=== PATIENT | female | born 1955 | race Caucasian/White ===

== ENCOUNTER → 2017-06-30 11:32 | Outpatient (POV) | payer BC, SELFPAY ==
[2017-06-30 11:39] VITALS: BP 146/84; PULSE 80; RESP 18; O2SAT 98; BMI 34.3
--- NOTE | 2017-06-30 11:50 | HMH.PAINSOAP ---
[facility] Pain Management SOAP Note Subjective:: patient is a pleasant 61-year-old white female who is following up today for medication refills. Patient is being treated for pain secondary to degenerative disc disease of the lumbar spine and lumbar radiculopathy. She rates her pain a 3 out of 10 today. 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 Her medically managing the patient with [place] 10 mg 1 p.o. to 4 times daily. Patient states the medication decreases her pain up to 60%. Denies any side effects including sleepiness. Patient is less of her pain is in the low back but does radiate down into her left leg. Rest does help alleviate these pains. He also uses heat and ice when needed. ROS General: no recent weight change, no fever, no sleep disturbances Respiratory: no cough, no shortness of air, no recurring pulmonary infections Cardiovascular/Peripheral Vascular: No chest pain, No palpitations, no edema, no shortness of breath. Gastrointestinal: no incontinence, constipation at times Genitourinary: no incontinence Musculoskeletal: [Back pain] Psychiatric: normal mood/ affect, Neurological: [denies weakness in extremities], [denies balance issues] Objective:: Physical Exam General: Alert and oriented x3, no acute distress, pleasant and cooperative, [on room air] Lungs: Resps E/U, Symmetrical chest expansion, Musculoskeletal: Flexion and extension of lumbar spine somewhat guarded secondary to pain, deep tendon reflexes normal, strength in upper and lower extremities [5/5], [normal gait noted] Neurological: speech clear, rib builder equal, no gross sensory deficits Assessment:: Degenerative disc disease lumbar spine and lumbar radiculopathy Plan:: We will plan on refilling this patient's medication [place] 10 mg 1 p.o. 4 times daily. Patient also taking gabapentin 100 mg 1 at nighttime. She does not need this refilled at this time we can call that in for her when it is necessary. Dr. Beth reviewed the chart and agrees with the plan of care. Patient UDS has been appropriate in the past patient's Grisel #[id number] reviewed and appropriate. Will follow up with this patient in 3 months. Patient has been prescribed a controlled substance after being counseled on the medication, medication safety, and possible side effects. GRISEL report has been obtained and reviewed prior to prescription and found to be appropriate. Opioid contract was reviewed and signed by the patient, and that they have agreed to all of the terms set forth by our compliance program. This note was dictated using voice recognition software and may contain errors or omissions
--- NOTE | 2017-06-30 12:03 | P.CONS_ITS ---
[facility] Pain Management SOAP Note Subjective:: patient is a pleasant 61-year-old white female who is following up today for medication refills. Patient is being treated for pain secondary to degenerative disc disease of the lumbar spine and lumbar radiculopathy. She rates her pain a 3 out of 10 today. 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 Her medically managing the patient with [place] 10 mg 1 p.o. to 4 times daily. Patient states the medication decreases her pain up to 60%. Denies any side effects including sleepiness. Patient is less of her pain is in the low back but does radiate down into her left leg. Rest does help alleviate these pains. He also uses heat and ice when needed. ROS General: no recent weight change, no fever, no sleep disturbances Respiratory: no cough, no shortness of air, no recurring pulmonary infections Cardiovascular/Peripheral Vascular: No chest pain, No palpitations, no edema, no shortness of breath. Gastrointestinal: no incontinence, constipation at times Genitourinary: no incontinence Musculoskeletal: [Back pain] Psychiatric: normal mood/ affect, Neurological: [denies weakness in extremities], [denies balance issues] Objective:: Physical Exam General: Alert and oriented x3, no acute distress, pleasant and cooperative, [ on room air] Lungs: Resps E/U, Symmetrical chest expansion, Musculoskeletal: Flexion and extension of lumbar spine somewhat guarded secondary to pain, deep tendon reflexes normal, strength in upper and lower extremities [5/5], [normal gait noted] Neurological: speech clear, outsole handler equal, no gross sensory deficits Assessment:: Degenerative disc disease lumbar spine and lumbar radiculopathy Plan:: We will plan on refilling this patient's medication [place] 10 mg 1 p.o. 4 times daily. Patient also taking gabapentin 100 mg 1 at nighttime. She does not need this refilled at this time we can call that in for her when it is necessary. Dr. Beth reviewed the chart and agrees with the plan of care. Patient UDS has been appropriate in the past patient's Grisel #[id number] reviewed and appropriate. Will follow up with this patient in 3 months. Patient has been prescribed a controlled substance after being counseled on the medication, medication safety, and possible side effects. GRISEL report has been obtained and reviewed prior to prescription and found to be appropriate. Opioid contract was reviewed and signed by the patient, and that they have agreed to all of the terms set forth by our compliance program. This note was dictated using voice recognition software and may contain errors or omissions
[2017-06-30 13:24] LABS: Amphetamine/Metha Screen,Urine Negative ng/mL (<1000); Barbiturates Screen,Urine Negative ng/mL (<200); Benzodiazepines Screen,Urine Negative ng/mL (200); Cannabinoid Screen,Urine Negative ng/mL (<50); Cocaine Screen,Urine Negative ng/g (<300); Methadone Screen,Urine Negative ng/mL (<300); Opiate Screen,Urine Positive ng/mL (<300); Phencyclidine Screen,Urine Negative ng/mL (<25)
[2017-07-06 15:08] LABS: Codeine Negative (Cutoff=100); Hydrocodone Positive (.); Hydromorphone Positive (.); Morphine Negative (Cutoff=100)
[2017-07-06 17:14] LABS: Opiates Positive (.)
== END ==
PROVIDERS: Family Provider Family Medicine; PCP Family Medicine; Visit Provider Clinical Nurse Specialist Family Health
DX: M54.16 Radiculopathy, lumbar region (principal)
CPT/HCPCS: 99212; 80305; 80361; 80365; G0480

== ENCOUNTER → 2017-07-14 10:16 | Outpatient (CLI) | payer BC, SELFPAY ==
[2017-07-14 11:21] LABS: Amphetamine/Metha Screen,Urine Negative ng/mL (<1000); Barbiturates Screen,Urine Negative ng/mL (<200); Benzodiazepines Screen,Urine Negative ng/mL (200); Cannabinoid Screen,Urine Negative ng/mL (<50); Cocaine Screen,Urine Negative ng/g (<300); Methadone Screen,Urine Negative ng/mL (<300); Opiate Screen,Urine Positive ng/mL (<300); Phencyclidine Screen,Urine Negative ng/mL (<25)
[2017-07-17 14:20] LABS: Codeine Negative (Cutoff=100); Hydrocodone Positive (.); Hydromorphone Positive (.); Morphine Negative (Cutoff=100)
[2017-07-18 19:13] LABS: Opiates Positive (.)
== END ==
PROVIDERS: Visit Provider Clinical Nurse Specialist Family Health
DX: Z79.899 Other long term (current) drug therapy (principal)
CPT/HCPCS: 80305; 80361; 80365; G0480

== ENCOUNTER → 2017-10-07 11:25 | Outpatient (POV) | payer BC, SELFPAY ==
[2017-10-07 11:40] VITALS: BP 183/98; PULSE 73; RESP 18; O2SAT 98; BMI 35.2
--- NOTE | 2017-10-07 12:46 | HMH.PAINSOAP ---
[facility] Pain Management SOAP Note Subjective:: She is a pleasant 61-year-old white female who presents today for medication refills. Patient is being treated for pain secondary to degenerative disc disease of the lumbar spine and lumbar radiculopathy. 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 Patient's been medically managed with [place] 10 mg 1 p.o. 4 times daily. Patient states the medication decreases her pain 50-60%. Patient rates her pain at 5 out of 10 today. Patient states that most of it is in her back and goes down her left leg. Patient has been taking gabapentin 100 mg 1 p.o. 3 times daily states that this is been doing very well for her. Patient Kaspar #[id number] reviewed and appropriate. Patient's UDS has been appropriate in the past. ROS General: no recent weight change, no fever, no sleep disturbances Respiratory: no cough, no shortness of air, no recurring pulmonary infections Cardiovascular/Peripheral Vascular: No chest pain, No palpitations, no edema, no shortness of breath. Gastrointestinal: no incontinence, normal bowel movements reported Genitourinary: no incontinence Musculoskeletal: Back pain, leg pain Psychiatric: normal mood/ affect Neurological: [denies weakness in extremities], [denies balance issues] Objective:: Physical Exam General: Alert and oriented x3, no acute distress, pleasant and cooperative, [on room air] Lungs: Resps E/U, Symmetrical chest expansion, Eyes: PERRL Musculoskeletal: Flexion and extension of lumbar spine somewhat guarded secondary to pain, deep tendon reflexes normal, strength in upper and lower extremities [5/5], normal gait noted Neurological: speech clear, senior visual designer equal, no gross sensory deficits Assessment:: Degenerative disc disease of lumbar spine with lumbar radiculopathy Plan:: We will refill the patient's medication [place] 10 mg 1 p.o. 4 times daily and gabapentin 100 mg 1 p.o. 3 times daily. We will give HER-2 months worth of prescriptions and she can cherry picker operator her third month in the interim we will follow-up with the patient in [address] Beth has reviewed this chart and agrees with this plan of care. Patient's Grisel and urine drug screen have been reviewed. Patient has been prescribed a controlled substance after being counseled on the medication, medication safety, and possible side effects. GRISEL report has been obtained and reviewed prior to prescription and found to be appropriate. Opioid contract was reviewed and signed by the patient, and that they have agreed to all of the terms set forth by our compliance program. This note was dictated using voice recognition software and may contain errors or omissions
== END ==
PROVIDERS: Family Provider Family Medicine; PCP Family Medicine; Visit Provider Clinical Nurse Specialist Family Health
DX: M54.16 Radiculopathy, lumbar region (principal)
CPT/HCPCS: 99212

== ENCOUNTER → 2017-12-05 11:05 | Outpatient (CLI) | payer BC, SELFPAY ==
[2017-12-05 12:15] LABS: Amphetamine/Metha Screen,Urine Negative ng/mL (<1000); Barbiturates Screen,Urine Negative ng/mL (<200); Benzodiazepines Screen,Urine Negative ng/mL (<200); Cannabinoid Screen,Urine Negative ng/mL (<50); Cocaine Screen,Urine Negative ng/mL (<300); Methadone Screen,Urine Negative ng/mL (<300); Opiate Screen,Urine Positive ng/mL (<300); Phencyclidine Screen,Urine Negative ng/mL (<25)
[2017-12-12 15:24] LABS: Codeine Negative (Cutoff=100); Hydrocodone Positive (.); Hydromorphone Positive (.); Morphine Negative (Cutoff=100)
[2017-12-12 18:14] LABS: Opiates Positive (.)
== END ==
PROVIDERS: Visit Provider Anesthesiology
DX: Z79.899 Other long term (current) drug therapy (principal)
CPT/HCPCS: 80305; 80361; 80365; G0480

== ENCOUNTER → 2018-01-05 10:07 | Outpatient (POV) | payer BC, SELFPAY ==
[2018-01-05 10:34] VITALS: BP 182/96; PULSE 64; RESP 18; O2SAT 97; BMI 36.0
--- NOTE | 2018-01-05 11:15 | HMH.PAINSOAP ---
[facility] Pain Management SOAP Note Subjective:: Patient pleasant 62-year-old male who presents today for medication refills. Patient's currently being treated for pain secondary to degenerative disc disease lumbar spine with lumbar radiculopathy. 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 Patient's being medically managed with [place] 10 mg 1 p.o. 4 times daily. Patient states that this helps her pain up to 60%. Patient also on gabapentin 100 mg 1 p.o. 3 times daily. Patient denies side effects to the medication. Patient Kaspar #[id number] reviewed and appropriate. Patient's urine drug screen has been appropriate in the past. ROS General: no recent weight change, no fever, no sleep disturbances Respiratory: no cough, no shortness of air, no recurring pulmonary infections Cardiovascular/Peripheral Vascular: No chest pain, No palpitations, no edema, no shortness of breath. Gastrointestinal: no incontinence, normal bowel movements reported Genitourinary: no incontinence Musculoskeletal: Back pain, leg pain Psychiatric: normal mood/ affect Neurological: [denies weakness in extremities], [denies balance issues] Objective:: Physical Exam General: Alert and oriented x3, no acute distress, pleasant and cooperative, [on room air] Lungs: Resps E/U, Symmetrical chest expansion, Eyes: PERRL Musculoskeletal: Flexion and extension of lumbar spine somewhat guarded secondary to pain, deep tendon reflexes normal, strength in upper and lower extremities [5/5], slightly antalgic gait noted Neurological: speech clear, auto haulaway driver equal, no gross sensory deficits Assessment:: Degenerative disc disease of lumbar spine with lumbar radiculopathy Plan:: We will refill the patient's medication [place] 10 g 1 p.o. 4 times daily and gabapentin 100 mg 1 p.o. 3 times daily. We will give her 2 months worth of prescriptions and she can rock picker her third month in the interim. We will follow-up the patient in [address] Beth is reviewed the chart and agrees with this plan of care. Patient's Grisel and urine drug screen have been reviewed Patient has been prescribed a controlled substance after being counseled on the medication, medication safety, and possible side effects. GRISEL report has been obtained and reviewed prior to prescription and found to be appropriate. Opioid contract was reviewed and signed by the patient, and that they have agreed to all of the terms set forth by our compliance program. This note was dictated using voice recognition software and may contain errors or omissions
--- NOTE | 2018-01-05 11:18 | P.CONS_ITS ---
[facility] Pain Management SOAP Note Subjective:: Patient pleasant 62-year-old male who presents today for medication refills. Patient's currently being treated for pain secondary to degenerative disc disease lumbar spine with lumbar radiculopathy. 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 Patient's being medically managed with [place] 10 mg 1 p.o. 4 times daily. Patient states that this helps her pain up to 60%. Patient also on gabapentin 100 mg 1 p.o. 3 times daily. Patient denies side effects to the medication. Patient Kaspar #[id number] reviewed and appropriate. Patient's urine drug screen has been appropriate in the past. ROS General: no recent weight change, no fever, no sleep disturbances Respiratory: no cough, no shortness of air, no recurring pulmonary infections Cardiovascular/Peripheral Vascular: No chest pain, No palpitations, no edema, no shortness of breath. Gastrointestinal: no incontinence, normal bowel movements reported Genitourinary: no incontinence Musculoskeletal: Back pain, leg pain Psychiatric: normal mood/ affect Neurological: [denies weakness in extremities], [denies balance issues] Objective:: Physical Exam General: Alert and oriented x3, no acute distress, pleasant and cooperative, [on room air] Lungs: Resps E/U, Symmetrical chest expansion, Eyes: PERRL Musculoskeletal: Flexion and extension of lumbar spine somewhat guarded secondary to pain, deep tendon reflexes normal, strength in upper and lower extremities [5/5], slightly antalgic gait noted Neurological: speech clear, energy scheduler equal, no gross sensory deficits Assessment:: Degenerative disc disease of lumbar spine with lumbar radiculopathy Plan:: We will refill the patient's medication [place] 10 g 1 p.o. 4 times daily and gabapentin 100 mg 1 p.o. 3 times daily. We will give her 2 months worth of prescriptions and she can picker her third month in the interim. We will follow-up the patient in [address] Beth is reviewed the chart and agrees with this plan of care. Patient's Grisel and urine drug screen have been reviewed Patient has been prescribed a controlled substance after being counseled on the medication, medication safety, and possible side effects. GRISEL report has been obtained and reviewed prior to prescription and found to be appropriate. Opioid contract was reviewed and signed by the patient, and that they have agreed to all of the terms set forth by our compliance program. This note was dictated using voice recognition software and may contain errors or omissions
== END ==
PROVIDERS: Family Provider Family Medicine; PCP Family Medicine; Visit Provider Clinical Nurse Specialist Family Health
DX: M51.16 Intervertebral disc disorders with radiculopathy, lumbar region (principal)
CPT/HCPCS: 99213

== ENCOUNTER → 2018-04-06 08:47 | Outpatient (POV) | payer BC, SELFPAY ==
[2018-04-06 08:58] VITALS: BP 156/74; PULSE 66; RESP 18; O2SAT 98; BMI 39.0
--- NOTE | 2018-04-06 09:02 | HMH.PAINSOAP ---
[facility] Pain Management SOAP Note Subjective:: Patient is a pleasant 8-year-old white male who presents today for medication refill the patient is currently being treated for pain secondary to degenerative disc disease lumbar spine with lumbar radiculopathy. 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 Patient is being medically managed with [place] 10 mg 1 p.o. 4 times daily. Patient did helps up to 70%. Patient is also on gabapentin 100 mg 1 p.o. 3 times daily patient denies any side effects of the medication. Patient's GRISEL #[id number] reviewed and appropriate. Patient's urine drug screen has been appropriate. ROS General: no recent weight change, no fever, no sleep disturbances Respiratory: no cough, no shortness of air, no recurring pulmonary infections Cardiovascular/Peripheral Vascular: No chest pain, No palpitations, no edema, no shortness of breath. Gastrointestinal: no incontinence, normal bowel movements reported Genitourinary: no incontinence Musculoskeletal: Back pain, leg pain Psychiatric: normal mood/ affect Neurological: [denies weakness in extremities], [denies balance issues] Objective:: Physical Exam General: Alert and oriented x3, no acute distress, pleasant and cooperative, [on room air] Lungs: Resps E/U, Symmetrical chest expansion, Eyes: PERRL Musculoskeletal: Flexion and extension of lumbar spine somewhat guarded secondary to pain, deep tendon reflexes normal, strength in upper and lower extremities [5/5], slightly antalgic gait noted Neurological: speech clear, maintenance service technician equal, no gross sensory deficits Assessment:: Degenerative disc disease lumbar spine with lumbar radiculopathy. Plan:: We will refill her [place] 10 mg 1 p.o. 4 times daily and gabapentin 100 mg 1 p.o. 3 times daily. We will get her to 2 months worth of prescriptions and she can pickling operator the third month in the interim. Patient's been instructed to call the office if she has any issues prior to her next appointment. Dr. Beth has reviewed this chart and agrees with this plan of care. Patient has been prescribed a controlled substance after being counseled on the medication, medication safety, and possible side effects. GRISEL report has been obtained and reviewed prior to prescription and found to be appropriate. Opioid contract was reviewed and signed by the patient, and that they have agreed to all of the terms set forth by our compliance program. This note was dictated using voice recognition software and may contain errors or omissions
--- NOTE | 2018-04-06 09:05 | P.CONS_ITS ---
[facility] Pain Management SOAP Note Subjective:: Patient is a pleasant 8-year-old white male who presents today for medication refill the patient is currently being treated for pain secondary to degenerative disc disease lumbar spine with lumbar radiculopathy. 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 Patient is being medically managed with [place] 10 mg 1 p.o. 4 times daily. Patient did helps up to 70%. Patient is also on gabapentin 100 mg 1 p.o. 3 times daily patient denies any side effects of the medication. Patient's GRISEL #[id number] reviewed and appropriate. Patient's urine drug screen has been appropriate. ROS General: no recent weight change, no fever, no sleep disturbances Respiratory: no cough, no shortness of air, no recurring pulmonary infections Cardiovascular/Peripheral Vascular: No chest pain, No palpitations, no edema, no shortness of breath. Gastrointestinal: no incontinence, normal bowel movements reported Genitourinary: no incontinence Musculoskeletal: Back pain, leg pain Psychiatric: normal mood/ affect Neurological: [denies weakness in extremities], [denies balance issues] Objective:: Physical Exam General: Alert and oriented x3, no acute distress, pleasant and cooperative, [on room air] Lungs: Resps E/U, Symmetrical chest expansion, Eyes: PERRL Musculoskeletal: Flexion and extension of lumbar spine somewhat guarded secondary to pain, deep tendon reflexes normal, strength in upper and lower extremities [5/5], slightly antalgic gait noted Neurological: speech clear, piece dye worker equal, no gross sensory deficits Assessment:: Degenerative disc disease lumbar spine with lumbar radiculopathy. Plan:: We will refill her [place] 10 mg 1 p.o. 4 times daily and gabapentin 100 mg 1 p.o. 3 times daily. We will get her to 2 months worth of prescriptions and she can picker and packer the third month in the interim. Patient's been instructed to call the office if she has any issues prior to her next appointment. Dr. Beth has reviewed this chart and agrees with this plan of care. Patient has been prescribed a controlled substance after being counseled on the medication, medication safety, and possible side effects. GRISEL report has been obtained and reviewed prior to prescription and found to be appropriate. Opioid contract was reviewed and signed by the patient, and that they have agreed to all of the terms set forth by our compliance program. This note was dictated using voice recognition software and may contain errors or omissions
[2018-04-06 09:34] LABS: Amphetamine/Metha Screen,Urine Negative ng/mL (<1000); Barbiturates Screen,Urine Negative ng/mL (<200); Benzodiazepines Screen,Urine Negative ng/mL (<200); Cannabinoid Screen,Urine Negative ng/mL (<50); Cocaine Screen,Urine Negative ng/mL (<300); Methadone Screen,Urine Negative ng/mL (<300); Opiate Screen,Urine Positive ng/mL (<300); Phencyclidine Screen,Urine Negative ng/mL (<25)
[2018-04-09 18:13] LABS: Codeine Negative (Cutoff=100); Hydrocodone Positive (.); Hydromorphone Positive (.); Morphine Negative (Cutoff=100)
[2018-04-10 09:10] LABS: Opiates Positive (.)
== END ==
PROVIDERS: Visit Provider Clinical Nurse Specialist Family Health
DX: M51.16 Intervertebral disc disorders with radiculopathy, lumbar region (principal)
CPT/HCPCS: 80305; 80361; 80365; 99213; G0480

== ENCOUNTER → 2018-07-06 08:45 | Outpatient (POV) | payer BC, SELFPAY ==
[2018-07-06 08:57] VITALS: BP 177/88; PULSE 61; RESP 18; O2SAT 98; BMI 35.2
--- NOTE | 2018-07-06 09:03 | HMH.PAINSOAP ---
[facility] Pain Management SOAP Note Subjective:: Patient is a pleasant 62-year-old white female who presents today for medication refills. She is currently being treated for pain secondary to degenerative disc disease lumbar spine with lumbar radiculopathy. 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 She is medically managed with [place] 10 mg 1 p.o. 4 times daily. She states it helps up to 70%. She rates her pain a 4 out of 10 today however she states it is typically better. Patient is also on gabapentin 100 mg 1 p.o. 3 times daily. She denies side effects. Grisel reviewed and appropriate and patient's urine drug screen has been appropriate in the past. ROS General: no recent weight change, no fever, no sleep disturbances Respiratory: no cough, no shortness of air, no recurring pulmonary infections Cardiovascular/Peripheral Vascular: No chest pain, No palpitations, no edema, no shortness of breath. Gastrointestinal: no incontinence, normal bowel movements reported Genitourinary: no incontinence Musculoskeletal: Back pain, leg pain Psychiatric: normal mood/ affect Neurological: [denies weakness in extremities], [denies balance issues] Objective:: Physical Exam General: Alert and oriented x3, no acute distress, pleasant and cooperative, [on room air] Lungs: Resps E/U, Symmetrical chest expansion, Eyes: PERRL Musculoskeletal: Flexion and extension of lumbar spine somewhat guarded secondary to pain, deep tendon reflexes normal, strength in upper and lower extremities [5/5], slightly antalgic gait noted Neurological: speech clear, welding machine operator thermit equal, no gross sensory deficits Assessment:: Degenerative disc disease lumbar spine with lumbar radiculopathy Plan:: We will refill her [place] 10 mg 1 p.o. 4 times daily and gabapentin 100 mg 1 p.o. 3 times daily. We will give her 2 months worth of prescriptions and she can tow picker the third month in the interim. She is been instructed to call the office if she has any issues prior to her next appointment. Patient has been prescribed a controlled substance after being counseled on the medication, medication safety, and possible side effects. GRISEL report has been obtained and reviewed prior to prescription and found to be appropriate. Opioid contract was reviewed and signed by the patient, and that they have agreed to all of the terms set forth by our compliance program. Dr. Beth has reviewed this note and agrees with this plan of care. This note was dictated using voice recognition software and may contain errors or omissions
--- NOTE | 2018-07-06 09:06 | P.CONS_ITS ---
[facility] Pain Management SOAP Note Subjective:: Patient is a pleasant 62-year-old white female who presents today for medication refills. She is currently being treated for pain secondary to degenerative disc disease lumbar spine with lumbar radiculopathy. 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 She is medically managed with [place] 10 mg 1 p.o. 4 times daily. She states it helps up to 70%. She rates her pain a 4 out of 10 today however she states it is typically better. Patient is also on gabapentin 100 mg 1 p.o. 3 times daily. She denies side effects. Grisel reviewed and appropriate and patient's urine drug screen has been appropriate in the past. ROS General: no recent weight change, no fever, no sleep disturbances Respiratory: no cough, no shortness of air, no recurring pulmonary infections Cardiovascular/Peripheral Vascular: No chest pain, No palpitations, no edema, no shortness of breath. Gastrointestinal: no incontinence, normal bowel movements reported Genitourinary: no incontinence Musculoskeletal: Back pain, leg pain Psychiatric: normal mood/ affect Neurological: [denies weakness in extremities], [denies balance issues] Objective:: Physical Exam General: Alert and oriented x3, no acute distress, pleasant and cooperative, [on room air] Lungs: Resps E/U, Symmetrical chest expansion, Eyes: PERRL Musculoskeletal: Flexion and extension of lumbar spine somewhat guarded secondary to pain, deep tendon reflexes normal, strength in upper and lower extremities [5/5], slightly antalgic gait noted Neurological: speech clear, software engineer developer equal, no gross sensory deficits Assessment:: Degenerative disc disease lumbar spine with lumbar radiculopathy Plan:: We will refill her [place] 10 mg 1 p.o. 4 times daily and gabapentin 100 mg 1 p.o. 3 times daily. We will give her 2 months worth of prescriptions and she can sampler pickup the third month in the interim. She is been instructed to call the office if she has any issues prior to her next appointment. Patient has been prescribed a controlled substance after being counseled on the medication, medication safety, and possible side effects. GRISEL report has been obtained and reviewed prior to prescription and found to be appropriate. Opioid contract was reviewed and signed by the patient, and that they have agreed to all of the terms set forth by our compliance program. Dr. Beth has reviewed this note and agrees with this plan of care. This note was dictated using voice recognition software and may contain errors or omissions
== END ==
PROVIDERS: PCP Family Medicine; Visit Provider Clinical Nurse Specialist Family Health
DX: M51.16 Intervertebral disc disorders with radiculopathy, lumbar region (principal)
CPT/HCPCS: 99213

== ENCOUNTER → 2018-09-28 09:02 | Outpatient (POV) | payer BC, SELFPAY ==
[2018-09-28 09:35] VITALS: BP 177/89; PULSE 62; RESP 18; O2SAT 98; BMI 36.0
--- NOTE | 2018-09-28 09:48 | HMH.PAINSOAP ---
[facility] Pain Management SOAP Note Subjective:: Patient is a pleasant 62-year-old white female who presents today for medication refills. She is currently being treated for pain secondary to degenerative disc disease lumbar spine with lumbar radiculopathy. 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 She is medically managed with [place] 10 mg 1 p.o. 4 times daily. She states it helps up to 70%. 4 out of 10 today. Patient is also on gabapentin 100 mg 1 p.o. 3 times daily. She denies any side effects. Grisel reviewed and appropriate and patient's urine drug screen has been appropriate in the past. ROS General: no recent weight change, no fever, no sleep disturbances Respiratory: no cough, no shortness of air, no recurring pulmonary infections Cardiovascular/Peripheral Vascular: No chest pain, No palpitations, no edema, no shortness of breath. Gastrointestinal: no incontinence, normal bowel movements reported Genitourinary: no incontinence Musculoskeletal: [Back pain, leg pain] Psychiatric: normal mood/ affect. Neurological: [denies weakness in extremities], [denies balance issues] Objective:: Physical Exam General: Alert and oriented x3, no acute distress, pleasant and cooperative, [on room air] Lungs: Resps E/U, Symmetrical chest expansion Eyes: PERRL Musculoskeletal: Flexion and extension of [lumbar] spine somewhat guarded secondary to pain, deep tendon reflexes normal, strength in upper and lower extremities [5/5], slightly antalgic gait Neurological: speech clear, auto body technician equal, no gross sensory deficits Assessment:: Degenerative disc disease lumbar spine with lumbar radiculopathy Plan:: We will refill her [place] 10 mg 1 p.o. 4 times daily and gabapentin 100 mg 1 p.o. 3 times daily. We will give her 2 months worth of prescriptions. 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 She has been instructed to call the office if she has any issues prior to her next appointment. Patient has been prescribed a controlled substance after being counseled on the medication, medication safety, and possible side effects. GRISEL report has been obtained and reviewed prior to prescription and found to be appropriate. Opioid contract was reviewed and signed by the patient, and that they have agreed to all of the terms set forth by our compliance program. Dr. Beth has reviewed this note and agrees with this plan of care. This note was dictated using voice recognition software and may contain errors or omission.
--- NOTE | 2018-09-28 09:52 | P.CONS_ITS ---
[facility] Pain Management SOAP Note Subjective:: Patient is a pleasant 62-year-old white female who presents today for medication refills. She is currently being treated for pain secondary to degenerative disc disease lumbar spine with lumbar radiculopathy. 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 She is medically managed with [place] 10 mg 1 p.o. 4 times daily. She states it helps up to 70%. 4 out of 10 today. Patient is also on gabapentin 100 mg 1 p.o. 3 times daily. She denies any side effects. Grisel reviewed and appropriate and patient's urine drug screen has been appropriate in the past. ROS General: no recent weight change, no fever, no sleep disturbances Respiratory: no cough, no shortness of air, no recurring pulmonary infections Cardiovascular/Peripheral Vascular: No chest pain, No palpitations, no edema, no shortness of breath. Gastrointestinal: no incontinence, normal bowel movements reported Genitourinary: no incontinence Musculoskeletal: [Back pain, leg pain] Psychiatric: normal mood/ affect. Neurological: [denies weakness in extremities], [denies balance issues] Objective:: Physical Exam General: Alert and oriented x3, no acute distress, pleasant and cooperative, [on room air] Lungs: Resps E/U, Symmetrical chest expansion Eyes: PERRL Musculoskeletal: Flexion and extension of [lumbar] spine somewhat guarded secondary to pain, deep tendon reflexes normal, strength in upper and lower extremities [5/5], slightly antalgic gait Neurological: speech clear, supervisor press room equal, no gross sensory deficits Assessment:: Degenerative disc disease lumbar spine with lumbar radiculopathy Plan:: We will refill her [place] 10 mg 1 p.o. 4 times daily and gabapentin 100 mg 1 p.o. 3 times daily. We will give her 2 months worth of prescriptions. 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 She has been instructed to call the office if she has any issues prior to her next appointment. Patient has been prescribed a controlled substance after being counseled on the medication, medication safety, and possible side effects. GRISEL report has been obtained and reviewed prior to prescription and found to be appropriate. Opioid contract was reviewed and signed by the patient, and that they have agreed to all of the terms set forth by our compliance program. Dr. Beth has reviewed this note and agrees with this plan of care. This note was dictated using voice recognition software and may contain errors or omission.
[2018-09-28 18:03] LABS: Amphetamine/Metha Screen,Urine Negative ng/mL (<1000); Barbiturates Screen,Urine Negative ng/mL (<200); Benzodiazepines Screen,Urine Negative ng/mL (<200); Cannabinoid Screen,Urine Negative ng/mL (<50); Cocaine Screen,Urine Negative ng/mL (<300); Methadone Screen,Urine Negative ng/mL (<300); Opiate Screen,Urine Positive ng/mL (<300); Phencyclidine Screen,Urine Negative ng/mL (<25)
[2018-10-04 10:32] LABS: Codeine Negative (Cutoff=100); Hydrocodone Positive (.); Hydromorphone Positive (.); Morphine Negative (Cutoff=100)
[2018-10-04 17:25] LABS: Opiates Positive (.)
--- NOTE | 2018-12-15 09:51 | PC.NURSE ---
REFILLS FOR GABAPENTIN 100MG TID FAXED TO [facility] PER PROVIDER ORDER
== END ==
PROVIDERS: PCP Family Medicine; Visit Provider Clinical Nurse Specialist Family Health
DX: M51.16 Intervertebral disc disorders with radiculopathy, lumbar region (principal); Z79.899 Other long term (current) drug therapy
CPT/HCPCS: 80305; 80361; 80365; 99212; G0480

== ENCOUNTER → 2018-12-21 09:25 | Outpatient (POV) | payer BC, SELFPAY ==
[2018-12-21 09:28] VITALS: BP 170/79; PULSE 64; RESP 18; O2SAT 98; BMI 36.0
--- NOTE | 2018-12-21 09:47 | HMH.PAINSOAP ---
[facility] Pain Management SOAP Note Subjective:: She is a pleasant 63-year-old white female who presents today for medication refills. She is currently being treated for pain secondary to degenerative disc disease lumbar spine with lumbar radiculopathy. 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 She is medically managed with [place] 10 mg 1 p.o. 4 times daily. She states it helps up to 80%. She rates her pain today a 3 out of 10. Grisel #[id number] reviewed and appropriate urine drug screens have been appropriate. ROS General: no recent weight change, no fever, no sleep disturbances Respiratory: no cough, no shortness of air, no recurring pulmonary infections Cardiovascular/Peripheral Vascular: No chest pain, No palpitations, no edema, no shortness of breath. Gastrointestinal: no incontinence, normal bowel movements reported Genitourinary: no incontinence Musculoskeletal: Back pain, leg pain Psychiatric: normal mood/ affect Neurological: [denies weakness in extremities], [denies balance issues] Objective:: Physical Exam General: Alert and oriented x3, no acute distress, pleasant and cooperative, [on room air] Lungs: Resps E/U, Symmetrical chest expansion, Eyes: PERRL Musculoskeletal: Flexion and extension of lumbar spine somewhat guarded secondary to pain, deep tendon reflexes normal, strength in upper and lower extremities [5/5], slightly antalgic gait noted Neurological: speech clear, traffic inspector equal, no gross sensory deficits Assessment:: Degenerative disc disease lumbar spine with lumbar radiculopathy Plan:: We will refill the patient's [place] 10 mg 1 p.o. 4 times daily and gabapentin 100 mg 1 p.o. 3 times daily. We will give her 2 months with a prescription she can pick her third month up in the interim. She is been instructed to call the office if she has any issues prior to her next appointment. Patient has been prescribed a controlled substance after being counseled on the medication, medication safety, and possible side effects. GRISEL report has been obtained and reviewed prior to prescription and found to be appropriate. Opioid contract was reviewed and signed by the patient, and that they have agreed to all of the terms set forth by our compliance program. Dr. Beth has reviewed this note and agrees with this plan of care. This note was dictated using voice recognition software and may contain errors or omissions Pain Management Hx Components *Have you ever received a pneumonia vaccine?: Yes *Have you received a flu vaccine this season?: Yes - *Social History *Occupational Status:: other *Travel in the last 8 weeks: None
== END ==
PROVIDERS: PCP Family Medicine; Visit Provider Clinical Nurse Specialist Family Health
DX: M51.16 Intervertebral disc disorders with radiculopathy, lumbar region (principal)
CPT/HCPCS: 99212

== ENCOUNTER → 2019-03-29 09:26 | Outpatient (POV) | payer BC, SELFPAY ==
[2019-03-29 09:38] VITALS: BP 157/77; PULSE 70; RESP 18; O2SAT 99; BMI 35.2
--- NOTE | 2019-03-29 10:00 | HMH.PAINSOAP ---
[facility] Pain Management SOAP Note Subjective:: Patient is a pleasant 63-year-old white female who presents today for medication refills. 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 Patient rates her pain a 4 out of 10 which is slightly higher than her typical. She is being medically managed with [place] 10 mg 1 p.o. 4 times daily. She states it helps up to 80%. Grisel #[id number] reviewed and appropriate. Urine drug screen is appropriate. ROS General: no recent weight change, no fever, no sleep disturbances Respiratory: no cough, no shortness of air, no recurring pulmonary infections Cardiovascular/Peripheral Vascular: No chest pain, No palpitations, no edema, no shortness of breath. Gastrointestinal: no new onset incontinence, normal bowel movements reported Genitourinary: no new onset incontinence Musculoskeletal: Back pain Psychiatric: normal mood/ affect Neurological: [denies new onset weakness in extremities], [denies new onset balance issues] Objective:: Physical Exam General: Alert and oriented x3, no acute distress, pleasant and cooperative, [on room air] Lungs: Resps E/U, Symmetrical chest expansion, Eyes: PERRL Musculoskeletal: Flexion and extension of lumbar spine somewhat guarded secondary to pain, deep tendon reflexes normal, strength in upper and lower extremities [5/5], [abnormal gait noted] Neurological: speech clear, payroll director equal, no gross sensory deficits Assessment:: Degenerative disc disease lumbar spine with lumbar radiculopathy Plan:: We will refill the patient's [place] 10 mg 1 p.o. 4 times daily and gabapentin 100 mg 1 p.o. 3 times daily. 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 She is been instructed to call the office if she has any issues prior to her next appointment. Patient has been prescribed a controlled substance after being counseled on the medication, medication safety, and possible side effects. GRISEL report has been obtained and reviewed prior to prescription and found to be appropriate. Opioid contract was reviewed and signed by the patient, and that they have agreed to all of the terms set forth by our compliance program. Dr. Beth has reviewed this note and agrees with this plan of care. This note was dictated using voice recognition software and may contain errors or omissions [facility] History I have reviewed the patient's past medical history: Yes *Have you ever received a pneumonia vaccine?: Yes *Have you received a flu vaccine this season?: Yes - *Social History Substance Use Type: denies use *Occupational Status:: employed, other *Travel in the last 8 weeks: None Family Hx:: Non-contributory
--- NOTE | 2019-03-29 10:03 | P.CONS_ITS ---
[facility] Pain Management SOAP Note Subjective:: Patient is a pleasant 63-year-old white female who presents today for medication refills. 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 Patient rates her pain a 4 out of 10 which is slightly higher than her typical. She is being medically managed with [place] 10 mg 1 p.o. 4 times daily. She states it helps up to 80%. Grisel #[id number] reviewed and appropriate. Urine drug screen is appropriate. ROS General: no recent weight change, no fever, no sleep disturbances Respiratory: no cough, no shortness of air, no recurring pulmonary infections Cardiovascular/Peripheral Vascular: No chest pain, No palpitations, no edema, no shortness of breath. Gastrointestinal: no new onset incontinence, normal bowel movements reported Genitourinary: no new onset incontinence Musculoskeletal: Back pain Psychiatric: normal mood/ affect Neurological: [denies new onset weakness in extremities], [denies new onset balance issues] Objective:: Physical Exam General: Alert and oriented x3, no acute distress, pleasant and cooperative, [on room air] Lungs: Resps E/U, Symmetrical chest expansion, Eyes: PERRL Musculoskeletal: Flexion and extension of lumbar spine somewhat guarded secondary to pain, deep tendon reflexes normal, strength in upper and lower extremities [5/5], [abnormal gait noted] Neurological: speech clear, maritime engineer equal, no gross sensory deficits Assessment:: Degenerative disc disease lumbar spine with lumbar radiculopathy Plan:: We will refill the patient's [place] 10 mg 1 p.o. 4 times daily and gabapentin 100 mg 1 p.o. 3 times daily. 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 She is been instructed to call the office if she has any issues prior to her next appointment. Patient has been prescribed a controlled substance after being counseled on the medication, medication safety, and possible side effects. GRISEL report has been obtained and reviewed prior to prescription and found to be appropriate. Opioid contract was reviewed and signed by the patient, and that they have agreed to all of the terms set forth by our compliance program. Dr. Beth has reviewed this note and agrees with this plan of care. This note was dictated using voice recognition software and may contain errors or omissions [facility] History I have reviewed the patient's past medical history: Yes *Have you ever received a pneumonia vaccine?: Yes *Have you received a flu vaccine this season?: Yes - *Social History Substance Use Type: denies use *Occupational Status:: employed, other *Travel in the last 8 weeks: None Family Hx:: Non-contributory
[2019-03-29 10:29] LABS: Amphetamine/Metha Screen,Urine Negative ng/mL (<1000); Barbiturates Screen,Urine Negative ng/mL (<200); Benzodiazepines Screen,Urine Negative ng/mL (<200); Cannabinoid Screen,Urine Negative ng/mL (<50); Cocaine Screen,Urine Negative ng/mL (<300); Methadone Screen,Urine Negative ng/mL (<300); Opiate Screen,Urine Positive ng/mL (<300); Phencyclidine Screen,Urine Negative ng/mL (<25)
[2019-04-01 19:08] LABS: Codeine Negative (Cutoff=100); Hydrocodone Positive (.); Hydromorphone Positive (.); Morphine Negative (Cutoff=100)
[2019-04-02 09:16] LABS: Opiates Positive (.)
== END ==
PROVIDERS: PCP Family Medicine; Visit Provider Clinical Nurse Specialist Family Health
DX: M51.16 Intervertebral disc disorders with radiculopathy, lumbar region (principal); Z79.899 Other long term (current) drug therapy
CPT/HCPCS: 80305; 80361; 80365; 99212; G0480

== ENCOUNTER → 2019-06-28 10:00 | Outpatient (POV) | payer BC, SELFPAY ==
[2019-06-28 10:25] VITALS: BP 176/82; PULSE 77; RESP 18; O2SAT 99; BMI 36.8
--- NOTE | 2019-06-28 10:25 | HMH.PAINSOAP ---
[facility] Pain Management SOAP Note Subjective:: Patient is a pleasant 63-year-old white female who presents today for medication refills. She is being treated for pain secondary to degenerative disc disease lumbar spine with lumbar radiculopathy symptoms. Rates her pain a 3 out of 10 today. She says she is doing well with her medication regimen. She says it gives her up to 85 to 90% relief. Patient is currently managed with [place] 10 mg 1 tablet p.o. 4 times daily. She denies any side effects to the medications. Patient's urine drug screen has been appropriate. Her Osbaldo #[id number] has been reviewed and is appropriate. Her urine drug screens are appropriate. The patient is also managed with gabapentin 100 mg 1 tablet p.o. 3 times daily. She denies any side effects to the medications. Review of Systems General: No recent weight changes, no fever, no sleep disturbances Respiratory: No cough, no shortness of air, no recurring pulmonary infections Cardiovascular/peripheral vascular: No chest pain, no palpitations, no edema, no shortness of breath Gastrointestinal: No new onset incontinence, normal bowel movements reported Genitourinary: No new onset incontinence Musculoskeletal: Low back pain Psychiatric: Normal mood/affect Neurological: [Denies weakness in extremities], [denies balance issues] Objective:: Physical exam General: Alert and oriented x3, no acute distress, pleasant and cooperative, [on room air] Lungs: Respirations even and unlabored, symmetrical chest expansion Eyes: PERRL Musculoskeletal: Flexion and extension of lumbar spine somewhat guarded secondary to pain, deep tendon reflexes normal, strength in upper and lower extremities [5/5], [abnormal gait noted] Neurological: Speech clear, parts counterperson equal, no gross sensory deficit Assessment:: Degenerative disc disease lumbar spine with lumbar radiculopathy symptoms Plan:: We will refill the patient's [place] 10 mg 1 tablet p.o. 4 times daily and gabapentin 100 mg 1 tablet p.o. 3 times daily. We will give HER-2 months worth of medication she can picker tender the third month in the interim. We will see her back in the clinic in 3 months to reassess her symptoms. The patient has been instructed to contact clinic if she has any concerns before her next appointment. Dr. Beth has reviewed this note and agrees with this plan of care. This note was dictated using voice recognition software and make contain errors or omissions. [facility] History I have reviewed the patient's past medical history: Yes *Have you ever received a pneumonia vaccine?: Yes *Have you received a flu vaccine this season?: Yes - *Social History Substance Use Type: denies use *Occupational Status:: employed, other *Travel in the last 8 weeks: None Family Hx:: Non-contributory
[2019-06-28 13:29] LABS: Amphetamine/Metha Screen,Urine Negative ng/mL (<1000); Barbiturates Screen,Urine Negative ng/mL (<200); Benzodiazepines Screen,Urine Negative ng/mL (<200); Cannabinoid Screen,Urine Negative ng/mL (<50); Cocaine Screen,Urine Negative ng/mL (<300); Methadone Screen,Urine Negative ng/mL (<300); Opiate Screen,Urine Positive ng/mL (<300); Phencyclidine Screen,Urine Negative ng/mL (<25)
[2019-07-03 20:41] LABS: Codeine Negative (Cutoff=100); Hydrocodone Positive (.); Hydromorphone Positive (.); Morphine Negative (Cutoff=100)
[2019-07-04 09:12] LABS: Opiates Positive (.)
== END ==
PROVIDERS: Clinical Nurse Specialist Family Health; PCP Family Medicine; Visit Provider Clinical Nurse Specialist Family Health
DX: M51.16 Intervertebral disc disorders with radiculopathy, lumbar region (principal); Z76.0 Encounter for issue of repeat prescription; Z79.899 Other long term (current) drug therapy
CPT/HCPCS: 80305; 80361; 80365; 99212; G0480

== ENCOUNTER → 2019-09-20 11:02 | Outpatient (POV) | payer BC, SELFPAY ==
[2019-09-20 11:05] VITALS: BP 162/90; PULSE 85; RESP 18; TEMP 36.8; O2SAT 98; BMI 34.9
--- NOTE | 2019-09-20 11:50 | HMH.PAINSOAP ---
[facility] Pain Management SOAP Note Subjective:: Patient is pleasant 63-year-old white female who presents today for medication refills. She rates her pain a 4-10. 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 Patient is currently on [place] 10 mg 1 p.o. 4 times daily. She denies side effects from medication she gets 90% relief with her medications. Grisel #[id number] reviewed and appropriate. Urine drug screens have been appropriate. Patient is also on gabapentin 100 mg 1 tab p.o. 3 times daily. ROS General: no recent weight change, no fever, no sleep disturbances Respiratory: no cough, no shortness of air, no recurring pulmonary infections Cardiovascular/Peripheral Vascular: No chest pain, No palpitations, no edema, no shortness of breath. Gastrointestinal: no new onset incontinence, normal bowel movements reported Genitourinary: no new onset incontinence Musculoskeletal: Back pain Psychiatric: normal mood/ affect Neurological: [denies new onset weakness in extremities], [denies new onset balance issues] Objective:: Physical Exam General: Alert and oriented x3, no acute distress, pleasant and cooperative, [on room air] Lungs: Resps E/U, Symmetrical chest expansion, Eyes: PERRL Musculoskeletal: Flexion and extension of lumbar spine somewhat guarded secondary to pain, deep tendon reflexes normal, strength in upper and lower extremities [5/5], slightly antalgic gait noted Neurological: speech clear, neonatal intensive care unit nurse equal, no gross sensory deficits Assessment:: Degenerative disc disease lumbar spine with lumbar radiculopathy Plan:: We will refill her [place] 10 mg 1 p.o. 4 times daily and give her 2 months worth of medication. 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 We will also continue her gabapentin 100 mg [address] Beth has reviewed this note and agrees with this plan of care. This note was dictated using voice recognition software and may contain errors or omissions Patient has been prescribed a controlled substance after being counseled on the medication, medication safety, and possible side effects. GRISEL report has been obtained and reviewed prior to prescription and found to be appropriate. Opioid contract was reviewed and signed by the patient, and that they have agreed to all of the terms set forth by our compliance program. We specifically discussed risk factors for Covid-19 including age, heart or lung disease, diabetes, immunosuppression and travel. We also discussed that NSAIDs may worsen Covid-19 infection symptoms and that they should not be used to treat Covid-19 symptoms. Patient was also informed that corticosteroids in any form oral or injectable will decrease immune response and may increase risk of Covid-[address] Beth has reviewed this patient's chart and this note and agrees with plan of care. Patient has been instructed to call the office if they have any issues prior to the next appointment. [facility] History I have reviewed the patient's past medical history: Yes *Have you ever received a pneumonia vaccine?: Yes *Have you received a flu vaccine this season?: Yes - *Social History Substance Use Type: denies use *Occupational Status:: other *Travel in the last 8 weeks: None Family Hx:: Non-contributory
== END ==
PROVIDERS: PCP Family Medicine; Visit Provider Clinical Nurse Specialist Family Health
DX: M51.16 Intervertebral disc disorders with radiculopathy, lumbar region (principal)
CPT/HCPCS: 99212

== ENCOUNTER → 2019-12-20 10:29 | Outpatient (POV) | payer BC, SELFPAY ==
[2019-12-20 11:04] VITALS: BP 132/88; PULSE 82; RESP 18; O2SAT 98; BMI 36.8
--- NOTE | 2019-12-20 12:54 | P.CONS_ITS ---
[facility] Pain Management SOAP Note Subjective:: Patient is a pleasant 64-year-old white female who presents today for medication refills. She rates her pain today a 4 out of 10. She states that she is much busier at work due to the current pandemic. She is on [place] 10 mg 1 p.o. 4 times daily. She denies side effects from medication she states she gets up to 90% relief with her medications. Grisel #[id number] reviewed and appropriate. Urine drug screens have been appropriate. Patient is also on gabapentin 100 mg 1 tab p.o. 3 times daily. ROS General: no recent weight change, no fever, no sleep disturbances Respiratory: no cough, no shortness of air, no recurring pulmonary infections Cardiovascular/Peripheral Vascular: No chest pain, No palpitations, no edema, no shortness of breath. Gastrointestinal: no new onset incontinence, normal bowel movements reported Genitourinary: no new onset incontinence Musculoskeletal: Back pain, leg pain Psychiatric: normal mood/ affect Neurological: [denies new onset weakness in extremities], [denies new onset balance issues] Objective:: Physical Exam General: Alert and oriented x3, no acute distress, pleasant and cooperative, [on room air] Lungs: Resps E/U, Symmetrical chest expansion, Eyes: PERRL Musculoskeletal: Flexion and extension of lumbar spine somewhat guarded secondary to pain, deep tendon reflexes normal, strength in upper and lower extremities [5/5], slightly antalgic gait noted Neurological: speech clear, liner assembler equal, no gross sensory deficits Assessment:: Degenerative disc disease lumbar spine lumbar radiculopathy Plan:: We will continue her [place] 10 mg 1 p.o. 4 times daily and gabapentin 100 mg 1 p.o. 3 times daily. We will give her 2 months worth of medication. We will see her back in 2 months reassess her symptoms at that time she has been instructed to call the office if she has any issues prior to next appointment. Patient has been prescribed a controlled substance after being counseled on the medication, medication safety, and possible side effects. GRISEL report has been obtained and reviewed prior to prescription and found to be appropriate. Opioid contract was reviewed and signed by the patient, and that they have agreed to all of the terms set forth by our compliance program.Dr. Beth has reviewed this note and agrees with this plan of care. This note was dictated using voice recognition software and may contain errors or omissions [facility] History I have reviewed the patient's past medical history: Yes *Have you ever received a pneumonia vaccine?: Yes *Have you received a flu vaccine this season?: Yes - *Social History Substance Use Type: denies use *Occupational Status:: other *Travel in the last 8 weeks: None Family Hx:: Non-contributory
== END ==
PROVIDERS: PCP Family Medicine; Visit Provider Clinical Nurse Specialist Family Health
DX: M51.16 Intervertebral disc disorders with radiculopathy, lumbar region (principal)
CPT/HCPCS: 99212

== ENCOUNTER → 2020-03-20 08:58 | Outpatient (POV) | payer BC, SELFPAY ==
[2020-03-20 09:08] VITALS: BP 159/80; PULSE 69; RESP 20; TEMP 36.8; O2SAT 97; BMI 36.6
--- NOTE | 2020-03-20 09:20 | HMH.PAINSOAP ---
[facility] Pain Management SOAP Note Subjective:: Patient is a 64-year-old white female who presents today for medication refills. She rates her pain today a 3 out of 10. Overall she is doing well she denies side effects from medication. She gets up to 90% relief with it. Patient's Grisel #[id number] reviewed and appropriate. Drug screens have been appropriate. Patient current morphine equivalent is 40. Patient is also gabapentin 100 mg 1 p.o. 3 times daily. ROS General: no recent weight change, no fever, no sleep disturbances Respiratory: no cough, no shortness of air, no recurring pulmonary infections Cardiovascular/Peripheral Vascular: No chest pain, No palpitations, no edema, no shortness of breath. Gastrointestinal: no new onset incontinence, normal bowel movements reported Genitourinary: no new onset incontinence Musculoskeletal: Back pain, leg pain Psychiatric: normal mood/ affect Neurological: [denies new onset weakness in extremities], [denies new onset balance issues] Objective:: Physical Exam General: Alert and oriented x3, no acute distress, pleasant and cooperative, [on room air] Lungs: Resps E/U, Symmetrical chest expansion, Eyes: PERRL Musculoskeletal: Flexion and extension of lumbar spine somewhat guarded secondary to pain, deep tendon reflexes normal, strength in upper and lower extremities [5/5], slightly antalgic gait noted Neurological: speech clear, product support engineer 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 4 times daily and gabapentin 100 mg 1 p.o. 3 times daily we will give her 2 months worth of medication. We will see her back in 3 months reassess her symptoms at that time she get 1 inch term prescription. She has been instructed to call the office if she has any issues prior to her next appointment. Patient has been prescribed a controlled substance after being counseled on the medication, medication safety, and possible side effects. GRISEL report has been obtained and reviewed prior to prescription and found to be appropriate. Opioid contract was reviewed and signed by the patient, and that they have agreed to all of the terms set forth by our compliance program. Dr. Beth has reviewed this note and agrees with this plan of care. This note was dictated using voice recognition software and may contain errors or omissions [facility] History I have reviewed the patient's past medical history: Yes *Have you ever received a pneumonia vaccine?: Yes *Have you received a flu vaccine this season?: Yes - *Social History Substance Use Type: denies use *Occupational Status:: employed *Travel in the last 8 weeks: None Family Hx:: Non-contributory
== END ==
PROVIDERS: Visit Provider Clinical Nurse Specialist Family Health
DX: M51.16 Intervertebral disc disorders with radiculopathy, lumbar region (principal)
CPT/HCPCS: 99212

== ENCOUNTER → 2020-06-19 09:47 | Outpatient (POV) | payer BC, SELFPAY ==
--- NOTE | 2020-06-19 10:15 | P.CONS_ITS ---
[facility] Pain Management SOAP Note Subjective:: Patient is pleasant 64-year-old white female who presents today for medication refills. She rates her pain today a 3 out of 10 overall doing well. She is recovering from Covid. Patient is currently medically managed on [place] 10 mg 1 p.o. 4 times daily and gabapentin 100 mg 1 p.o. 3 times daily. Osbaldo #[id number] reviewed and appropriate. Drug screens have been appropriate. Patient's current morphine equivalent is 40. She denies side effects to her medications. ROS General: no recent weight change, no fever, no sleep disturbances Respiratory: no cough, no shortness of air, no recurring pulmonary infections Cardiovascular/Peripheral Vascular: No chest pain, No palpitations, no edema, no shortness of breath. Gastrointestinal: no new onset incontinence, normal bowel movements reported Genitourinary: no new onset incontinence Musculoskeletal: Back pain, leg pain Psychiatric: normal mood/ affect Neurological: [denies new onset weakness in extremities], [denies new onset balance issues] Objective:: Physical Exam General: Alert and oriented x3, no acute distress, pleasant and cooperative, [on room air] Lungs: Resps E/U, Symmetrical chest expansion, Eyes: PERRL Musculoskeletal: Flexion and extension of lumbar spine somewhat guarded secondar y to pain, deep tendon reflexes normal, strength in upper and lower extremities [5/5], slightly antalgic gait noted Neurological: speech clear, golf range attendant 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 4 times daily and gabapentin 100 mg 1 p .o. 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 Patient overall doing well she has been instructed to call the office if she has any issues prior to her next appointment. Dr. Beth has reviewed this note and agrees with this plan of care. This note was dictated using voice recognition software and may contain errors or omissions Patient has been prescribed a controlled substance after being counseled on the medication, medication safety, and possible side effects. [facility] report has been obtained and reviewed prior to prescription and found to be appropriate. Opioid contract was reviewed and signed by the patient, and that they have agreed to all of the terms set forth by our compliance program. [facility] History I have reviewed the patient's past medical history: Yes *Have you ever received a pneumonia vaccine?: Yes *Have you received a flu vaccine this season?: Yes - *Social History Substance Use Type: denies use *Occupational Status:: employed *Travel in the last 8 weeks: None Family Hx:: Non-contributory
[2020-06-19 10:17] VITALS: BP 128/71; PULSE 74; RESP 18; TEMP 36.8; O2SAT 99; BMI 36.6
== END ==
PROVIDERS: PCP Family Medicine; Visit Provider Clinical Nurse Specialist Family Health
DX: M51.16 Intervertebral disc disorders with radiculopathy, lumbar region (principal)
CPT/HCPCS: 99212; G0463

== ENCOUNTER → 2020-09-18 09:15 | Outpatient (POV) | payer BC, SELFPAY ==
[2020-09-18 09:34] VITALS: BP 128/88; PULSE 75; RESP 18; O2SAT 98; BMI 37.8
--- NOTE | 2020-09-18 10:17 | HMH.PAINSOAP ---
[facility] Pain Management SOAP Note Subjective:: A pleasant 65-year-old white female who presents today for medication refills. She rates her pain a 3 out of 10 overall doing well. She is currently being medically managed with [place] 10 mg 1 p.o. 4 times daily and gabapentin 100 mg 1 p.o. 3 times daily. Grisel #[id number] reviewed and appropriate. She denies any side effects her current morphine equivalent is 40. ROS General: no recent weight change, no fever, no sleep disturbances Respiratory: no cough, no shortness of air, no recurring pulmonary infections Cardiovascular/Peripheral Vascular: No chest pain, No palpitations, no edema, no shortness of breath. Gastrointestinal: no new onset incontinence, normal bowel movements reported Genitourinary: no new onset incontinence Musculoskeletal: Back pain, leg pain Psychiatric: normal mood/ affect Neurological: [denies new onset weakness in extremities], [denies new onset balance issues] Objective:: Physical Exam General: Alert and oriented x3, no acute distress, pleasant and cooperative, [on room air] Lungs: Resps E/U, Symmetrical chest expansion, Eyes: PERRL Musculoskeletal: Flexion and extension of lumbar spine somewhat guarded secondary to pain, deep tendon reflexes normal, strength in upper and lower extremities [5/5], [abnormal gait noted] Neurological: speech clear, regional medical director equal, no gross sensory deficits Assessment:: Degenerative disc disease lumbar spine lumbar radiculopathy, back pain Plan:: We will continue her [place] 10 mg 1 p.o. 4 times daily and gabapentin 100 mg 1 p.o. to continue. 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 She is been instructed to call the office if she has any issues prior to her next appointment. Dr. Beth has reviewed this note and agrees with this plan of care. This note was dictated using voice recognition software and may contain errors or omissions Patient has been prescribed a controlled substance after being counseled on the medication, medication safety, and possible side effects. GRISEL report has been obtained and reviewed prior to prescription and found to be appropriate. Opioid contract was reviewed and signed by the patient, and that they have agreed to all of the terms set forth by our compliance program. [facility] History I have reviewed the patient's past medical history: Yes *Have you ever received a pneumonia vaccine?: Yes *Have you received a flu vaccine this season?: Yes - *Social History Smoking Status: Unknown if ever smoked Alcohol Intake: never Substance Use Type: denies use *Occupational Status:: other *Travel in the last 8 weeks: None Family Hx:: Non-contributory
== END ==
PROVIDERS: PCP Family Medicine; Visit Provider Clinical Nurse Specialist Family Health
DX: M51.16 Intervertebral disc disorders with radiculopathy, lumbar region (principal)
CPT/HCPCS: 99212; G0463

== ENCOUNTER → 2020-12-18 09:21 | Outpatient (POV) | payer BC, SELFPAY ==
[2020-12-18 09:37] VITALS: BP 195/90; PULSE 73; RESP 18; O2SAT 97; BMI 36.8
--- NOTE | 2020-12-18 10:29 | P.CONS_ITS ---
[facility] Pain Management SOAP Note Subjective:: Patient is a 65-year-old white female who presents today for follow-up and for medication refills. The patient is being treated for degenerative disc disease lumbar spine with lumbar radiculopathy symptoms. Patient rates her pain at 3 out of 10 today. This is her baseline. She says her medications are working well for her pain at this time. Her Grisel #[id number] has been reviewed and is appropriate. Morphine equivalent is 40. She denies any side effects to the medication. She says that she is much more functional with her medicines. She does undergo annual physical therapy and continues with home stretching as well. Review of Systems General: No recent weight changes, no fever, no sleep disturbances Respiratory: No cough, no shortness of air, no recurring pulmonary infections Cardiovascular/peripheral vascular: No chest pain, no palpitations, no edema, no shortness of breath Gastrointestinal: No new onset incontinence, normal bowel movements reported Genitourinary: No new onset incontinence Musculoskeletal: Chronic low back pain Psychiatric: [Normal mood/affect] Neurological: [Denies weakness in extremities], [denies balance issues] Objective:: Physical exam General: Alert and oriented x3, no acute distress, pleasant and cooperative, [on room air] Lungs: Respirations even and unlabored, symmetrical chest expansion Eyes: PERRL Musculoskeletal: Flexion and extension of [] lumbar [spine] somewhat guarded secondary to pain, strength in upper and lower extremities [5/5], [antalgic gait noted] Neurological: Speech clear, [supervisor cab equal], no gross sensory deficit Assessment:: Degenerative disc disease lumbar spine with lumbar radiculopathy symptoms Plan:: We will refill the patient's [place] 10 mg 1 tablet p.o. 4 times daily and gabapentin 100 mg 1 tablet p.o. 3 times daily. She will get a month medication. She did undergo a drug screen today. We will see her back in the clinic in 1 month. Patient has been instructed to contact the clinic with any concerns before the next appointment. Dr. Beth has reviewed this note and agrees with this plan of care. This note was dictated using voice recognition software and make contain errors or omissions. Risks and benefits of the medication have been explained in detail to the patient. The patient has been advised to consult with his/her primary care provider and pharmacist regarding drug-drug interaction of medications currently prescribed. Patient has been prescribed a controlled substance after being counseled on the medication, medication safety, and possible side effects. GRISEL report has been obtained and reviewed prior to prescription and found to be appropriate. Opioid contract was reviewed and signed by the patient, and that they have agreed to all of the terms set forth by our compliance program. [facility] History I have reviewed the patient's past medical history: Yes *Have you ever received a pneumonia vaccine?: No *Have you received a flu vaccine this season?: No - *Social History Smoking Status: Unknown if ever smoked Alcohol Intake: never Substance Use Type: denies use *Occupational Status:: unemployed *Travel in the last 8 weeks: None Family Hx:: Non-contributory
== END ==
PROVIDERS: Visit Provider Clinical Nurse Specialist Family Health
DX: M51.16 Intervertebral disc disorders with radiculopathy, lumbar region (principal)
CPT/HCPCS: 99212; G0463

== ENCOUNTER → 2021-01-18 10:16 | Outpatient (POV) | payer BC, SELFPAY ==
[2021-01-18 10:22] VITALS: BP 164/86; PULSE 69; RESP 18; O2SAT 99; BMI 36.6
--- NOTE | 2021-01-18 10:53 | P.CONS_ITS ---
[facility] Pain Management SOAP Note Subjective:: Patient is a 65-year-old white female who presents today follow-up. She has been treated for degenerative disc disease lumbar spine with lumbar radiculopathy symptoms. Patient says she is doing well overall with her medicine. She rates her pain a 3 out of 10. She has managed with gabapentin milligrams 1 tablet p.o. 3 times daily and [place] 10 mg 1 tablet p.o. 4 times daily. She denies any side effects of the medication. She says that she gets up to 70% relief with her medication regimen. She does do intermittent physical therapy and home stretching. Review of Systems General: No recent weight changes, no fever, no sleep disturbances Respiratory: No cough, no shortness of air, no recurring pulmonary infections Cardiovascular/peripheral vascular: No chest pain, no palpitations, no edema, no shortness of breath Gastrointestinal: No new onset incontinence, normal bowel movements reported Genitourinary: No new onset incontinence Musculoskeletal: Chronic low back pain Psychiatric: [Normal mood/affect] Neurological: [Denies weakness in extremities], [denies balance issues] Objective:: Physical exam General: Alert and oriented x3, no acute distress, pleasant and cooperative, [on room air] Lungs: Respirations even and unlabored, symmetrical chest expansion Eyes: PERRL Musculoskeletal: Flexion and extension of lumbar. [spine] somewhat guarded secondary to pain, strength in upper and lower extremities [5/5], [antalgic gait noted] Neurological: Speech clear, [steel loader equal], no gross sensory deficit Assessment:: Degenerative disc disease lumbar spine with lumbar radiculopathy symptoms Plan:: We will refill the patient's gabapentin milligrams 1 tablet p.o. 3 times daily [place] 10 mg 1 tablet p.o. 4 times daily. We will give the patient a month medication see her back in the clinic in 1 month for reevaluation of symptoms. Patient has been instructed to contact clinic if she has any concerns before next morning. Risks and benefits of the medication have been explained in detail to the patient. The patient has been advised to consult with his/her primary care provider and pharmacist regarding drug-drug interaction of medications currently prescribed. Patient has been prescribed a controlled substance after being counseled on the medication, medication safety, and possible side effects. GRISEL report has been obtained and reviewed prior to prescription and found to be appropriate. Opioid contract was reviewed and signed by the patient, and that they have agreed to all of the terms set forth by our compliance program. Patient has been instructed to contact the clinic with any concerns before the next appointment. Dr. Beth has reviewed this note and agrees with this plan of care. This note was dictated using voice recognition software and make contain errors or omissions. [facility] History I have reviewed the patient's past medical history: Yes *Have you ever received a pneumonia vaccine?: No *Have you received a flu vaccine this season?: Yes - *Social History Smoking Status: Unknown if ever smoked Alcohol Intake: never Substance Use Type: denies use *Occupational Status:: employed *Travel in the last 8 weeks: None Family Hx:: Non-contributory
== END ==
PROVIDERS: PCP Family Medicine; Visit Provider Clinical Nurse Specialist Family Health
DX: M51.16 Intervertebral disc disorders with radiculopathy, lumbar region (principal)
CPT/HCPCS: 99212; G0463

== ENCOUNTER → 2021-02-15 10:26 | Outpatient (POV) | payer BC, SELFPAY ==
[2021-02-15 10:37] VITALS: BP 179/95; PULSE 69; RESP 18; O2SAT 96; BMI 37.8
--- NOTE | 2021-02-15 10:40 | HMH.PAINSOAP ---
[facility] Pain Management SOAP Note Subjective:: Patient is a 65-year-old white female who presents today for medication refills. The patient is doing well with her medication regimen at this time. She has tried failed conservative therapies of physical therapy and injective therapy in the past. She does rate her pain a 3 out of 10. She is managed with [place] 10 mg 1 tablet p.o. 4 times daily and with gabapentin 100 mg 1 tablet p.o. 3 times daily. Patient denies any side effects with the medication. The patient's Grisel #[id number] has been reviewed and is appropriate. Drug screen is appropriate. Morphine equivalent is 40. Review of Systems General: No recent weight changes, no fever, no sleep disturbances Respiratory: No cough, no shortness of air, no recurring pulmonary infections Cardiovascular/peripheral vascular: No chest pain, no palpitations, no edema, no shortness of breath Gastrointestinal: No new onset incontinence, normal bowel movements reported Genitourinary: No new onset incontinence Musculoskeletal: Chronic low back pain with radiation into bilateral lower extremities Psychiatric: [Normal mood/affect] Neurological: [Denies weakness in extremities], [denies balance issues] Objective:: Physical exam General: Alert and oriented x3, no acute distress, pleasant and cooperative, [on room air] Lungs: Respirations even and unlabored, symmetrical chest expansion Eyes: PERRL Musculoskeletal: Flexion and extension of lumbar [spine] somewhat guarded secondary to pain, [antalgic gait noted] Neurological: Speech clear, no gross sensory deficit Assessment:: Degenerative disc disease lumbar spine with lumbar radiculopathy symptoms Plan:: Patient is a pleasant 65-year-old white female who presents today for medication refills. We will continue the patient on her gabapentin 100 mg 1 tablet p.o. 3 times daily and [place] 10 mg 1 tablet p.o. 4 times daily. We will give the patient a month medication and see her back in the clinic in 1 month. Risks and benefits of the medication have been explained in detail to the patient. The patient has been advised to consult with his/her primary care provider and pharmacist regarding drug-drug interaction of medications currently prescribed. Patient has been advised of risks of oversedation with the prescribed medication. Narcan has been offered to the paitent in the event of oversedation. Patient has been advised that a family member should also be educated regarding administration of Narcan. Patient has been prescribed a controlled substance after being counseled on the medication, medication safety, and possible side effects. GRISEL report has been obtained and reviewed prior to prescription and found to be appropriate. Opioid contract was reviewed and signed by the patient, and that they have agreed to all of the terms set forth by our compliance program. Patient has been instructed to contact the clinic with any concerns before the next appointment. Dr. Beth has reviewed this note and agrees with this plan of care. This note was dictated using voice recognition software and make contain errors or omissions. [facility] History I have reviewed the patient's past medical history: Yes *Have you ever received a pneumonia vaccine?: Yes *Have you received a flu vaccine this season?: Yes - *Social History Smoking Status: Unknown if ever smoked Alcohol Intake: never Substance Use Type: denies use *Occupational Status:: unemployed *Travel in the last 8 weeks: None Family Hx:: Non-contributory
== END ==
PROVIDERS: Visit Provider Clinical Nurse Specialist Family Health
DX: M51.16 Intervertebral disc disorders with radiculopathy, lumbar region (principal)
CPT/HCPCS: 99212; G0463

== ENCOUNTER → 2021-03-15 08:38 | Outpatient (POV) | payer BC, SELFPAY ==
[2021-03-15 08:53] VITALS: BMI 39.4
--- NOTE | 2021-03-15 09:01 | HMH.PAINSOAP ---
[facility] Pain Management SOAP Note Subjective:: Patient is a 65-year-old white female who presents today for medication refills. Patient does rate her pain a 3 out of 10. She is treated for chronic low back pain with radiation into bilateral lower extremities. She has very little pain in her bilateral legs at this time due to gabapentin. She says this helps tremendously with her bilateral lower extremity pain. She is also managed with low back pain with [place] 10 mg 1 tablet p.o. 4 times daily. Patient's gabapentin dose is 100 mg 1 tablet p.o. 3 times daily. She denies any side effects to these medications. [facility] #[id number] has been reviewed and is appropriate. Morphine equivalent is 40. Review of Systems General: No recent weight changes, no fever, no sleep disturbances Respiratory: No cough, no shortness of air, no recurring pulmonary infections Cardiovascular/peripheral vascular: No chest pain, no palpitations, no edema, no shortness of breath Gastrointestinal: No new onset incontinence, normal bowel movements reported Genitourinary: No new onset incontinence Musculoskeletal: Chronic low back pain with intermittent leg pain managed with gabapentin Psychiatric: [Normal mood/affect] Neurological: [Denies weakness in extremities], [denies balance issues] Assessment:: Physical exam General: Alert and oriented x3, no acute distress, pleasant and cooperative Lungs: Respirations even and unlabored, symmetrical chest expansion Eyes: PERRL Musculoskeletal: Flexion and extension of lumbar [spine] somewhat guarded secondary to pain, [antalgic gait noted] Neurological: Speech clear, no gross sensory deficit Plan:: Patient is doing well with her medication regimen. She rates her pain a 3 out of 10 today. We will continue [place] 10 mg 1 tablet p.o. 4 times daily and gabapentin 100 mg 1 tablet p.o. 3 times daily. The patient has tried physical therapy with very little relief. She does continue with home stretching which is limited due to her pain. Injective therapy has been attempted with the patient in the past, but she did not get any significant relief. Patient I did discuss Narcan administration today. She has been advised Narcan will be ordered in the event of possible oversedation. Risks and benefits of the medication have been explained in detail to the patient. The patient does understand the risk of dependence on the medication when given over a prolonged period. Patient has been advised of risks of oversedation with the prescribed medication. Narcan has been offered to the paitent in the event of oversedation. Patient has been advised that a family member should also be educated regarding administration of Narcan. The patient has been advised to consult with his/her primary care provider and pharmacist regarding drug-drug interaction of medications currently prescribed. Patient has been prescribed a controlled substance after being counseled on the medication, medication safety, and possible side effects. GRISEL report has been obtained and reviewed prior to prescription and found to be appropriate. Opioid contract was reviewed and signed by the patient, and that they have agreed to all of the terms set forth by our compliance program. Patient has been instructed to contact the clinic with any concerns before the next appointment. Dr. Beth has reviewed this note and agrees with this plan of care. This note was dictated using voice recognition software and make contain errors or omissions. [facility] History I have reviewed the patient's past medical history: Yes *Have you ever received a pneumonia vaccine?: Yes *Have you received a flu vaccine this season?: Yes - *Social History Smoking Status: Unknown if ever smoked Alcohol Intake: never Substance Use Type: denies use *Occupational Status:: employed *Travel in the last 8 weeks: None Family Hx:: Non-contributory
[2021-03-15 09:54] LABS: Amphetamine/Metha Screen,Urine Negative ng/ml (<1000)
[2021-03-15 09:55] LABS: Barbiturates Screen,Urine Negative ng/ml (<200); Benzodiazepines Screen,Urine Negative ng/ml (<200)
[2021-03-15 09:56] LABS: Cannabinoid Screen,Urine Negative ng/ml (<50)
[2021-03-15 09:57] LABS: Cocaine Screen,Urine Negative ng/ml (<300); Methadone Screen,Urine Negative ng/ml (<300)
[2021-03-15 09:58] LABS: Opiate Screen,Urine Positive ng/ml (<300); Phencyclidine Screen,Urine Negative ng/ml (<25)
== END ==
PROVIDERS: Visit Provider Clinical Nurse Specialist Family Health
DX: M51.16 Intervertebral disc disorders with radiculopathy, lumbar region (principal)
CPT/HCPCS: 80305; 99212; G0463

== ENCOUNTER → 2021-04-12 08:29 | Outpatient (POV) | payer BC, SELFPAY ==
--- NOTE | 2021-04-12 08:49 | P.CONS_ITS ---
[facility] Pain Management SOAP Note Subjective:: Patient is a pleasant 65-year-old female who is here today for follow-up patient is currently being treated for chronic low back pain with radiation to the bilateral legs. She is currently being managed with [place] 10 mg 1 tablet 4 times daily and gabapentin 100 mg 3 times a day. Patient denies any changes patient patient side effects that he is medications. Patient rates her pain 3 out of 10 today. Grisel number is [id number] and an active morphine equivalent 40. Review of Systems General: No recent weight changes, no fever, no sleep disturbances Respiratory: No cough, no shortness of air, no recurring pulmonary infections Cardiovascular/peripheral vascular: No chest pain, no palpitations, no edema, no shortness of breath Gastrointestinal: No new onset incontinence, normal bowel movements reported Genitourinary: No new onset incontinence Musculoskeletal: Low back pain Psychiatric: [Normal mood/affect] Neurological: [Denies weakness in extremities], [denies balance issues] Objective:: Physical exam General: Alert and oriented x3, no acute distress, pleasant and cooperative Lungs: Respirations even and unlabored, symmetrical chest expansion Eyes: PERRL Musculoskeletal: Flexion and extension of lumbar [spine] somewhat guarded secondary to pain, [antalgic gait noted] Neurological: Speech clear, no gross sensory deficit Assessment:: Degenerative disc disease with lumbar radiculopathy Plan:: We will continue the patient's [place] 10/325 mg 4 times a day and gabapentin 100 mg 3 times a day. We will provide the patient with [1 month] of refills. We would like to see the patient back in [1 month]. Risks and benefits of the medication have been explained in detail to the patient. The patient does understand the risk of dependence on the medication when given over a prolonged period. Patient has been advised of risks of oversedation with the prescribed medication. Narcan has been offered to the paitent in the event of oversedation. Patient has been advised that a family member should also be educated regarding administration of Narcan. The patient has been advised to consult with his/her primary care provider and pharmacist regarding drug-drug interaction of medications currently prescribed. Patient has been prescribed a controlled substance after being counseled on the medication, medication safety, and possible side effects. GRISEL report has been obtained and reviewed prior to prescription and found to be appropriate. Opioid contract was reviewed and signed by the patient, and that they have agreed to all of the terms set forth by our compliance program. Patient has been instructed to contact the clinic with any concerns before the next appointment. Dr. Beth has reviewed this note and agrees with this plan of care. This note was dictated using voice recognition software and make contain errors or omissions. [facility] History *Have you ever received a pneumonia vaccine?: Yes *Have you received a flu vaccine this season?: Yes - *Social History Smoking Status: Unknown if ever smoked Alcohol Intake: never Substance Use Type: denies use *Occupational Status:: employed *Travel in the last 8 weeks: Inside the [facility] Family Hx:: Non-contributory
[2021-04-12 08:50] VITALS: BP 195/92; PULSE 72; RESP 18; O2SAT 97; BMI 37.8
== END ==
PROVIDERS: Visit Provider Clinical Nurse Specialist Family Health
DX: M51.16 Intervertebral disc disorders with radiculopathy, lumbar region (principal)
CPT/HCPCS: 99212; G0463

== ENCOUNTER → 2021-05-14 08:28 | Outpatient (POV) | payer BC, SELFPAY ==
[2021-05-14 08:46] VITALS: BP 192/86; PULSE 72; RESP 18; O2SAT 96; BMI 37.8
--- NOTE | 2021-05-14 08:48 | HMH.PAINSOAP ---
[facility] Pain Management SOAP Note Subjective:: Patient is a pleasant 65 year old female who comes in for follow-up and medication refill. Patient is currently being treated for DDD lumbar. Patient is being managed with [place] 10mg QID and Gabapentin 100mg TID. Patient denies any side effects from these medications. Patient denies any change to the location and type of pain. Patient rates her pain as 3/10. Her grisel is [id number] with an active morphine equivalent of 0. Drug screens have been reviewed and appropriate. Patient's ORT score is 1, low risk. General: No recent weight changes, no fever, no sleep disturbances Respiratory: No cough, no shortness of air, no recurring pulmonary infections Cardiovascular/peripheral vascular: No chest pain, no palpitations, no edema, no shortness of breath Gastrointestinal: No new onset incontinence, normal bowel movements reported Genitourinary: No new onset incontinence Musculoskeletal: low back pain Psychiatric: [Normal mood/affect] Neurological: [Denies weakness in extremities], [denies balance issues] Objective:: General: Alert and oriented x3, no acute distress, pleasant and cooperative, [on room air] Lungs: Respirations even and unlabored, symmetrical chest expansion Eyes: PERRL Musculoskeletal: Flexion and extension of [lumbar] [spine] somewhat guarded secondary to pain Neurological: Speech clear, no gross sensory deficit Assessment:: Degenerative Disc Disease of the Lumbar Spine with Lumbar Radiculopathy Plan:: We will continue the patient's [Grove 10mg four time a day and Gabapentin 100mg three times a day.]. We will provide the patient with [1 month] of refills. We would like to see the patient back in [1 month] for follow-up. Risks and benefits of the medication have been explained in detail to the patient. The patient does understand the risk of dependence on the medication when given over a prolonged period. Patient has been advised of risks of oversedation with the prescribed medication. Narcan has been offered to the paitent in the event of oversedation. Patient has been advised that a family member should also be educated regarding administration of Narcan. The patient has been advised to consult with his/her primary care provider and pharmacist regarding drug-drug interaction of medications currently prescribed. Patient has been prescribed a controlled substance after being counseled on the medication, medication safety, and possible side effects. GRISEL report has been obtained and reviewed prior to prescription and found to be appropriate. Opioid contract was reviewed and signed by the patient, and that they have agreed to all of the terms set forth by our compliance program. Patient has been instructed to contact the clinic with any concerns before the next appointment. Dr. Beth has reviewed this note and agrees with this plan of care. This note was dictated using voice recognition software and make contain errors or omissions. [facility] History *Have you ever received a pneumonia vaccine?: Yes *Have you received a flu vaccine this season?: Yes - *Social History Smoking Status: Unknown if ever smoked Alcohol Intake: never Substance Use Type: denies use *Occupational Status:: unemployed *Travel in the last 8 weeks: None Family Hx:: Non-contributory
--- NOTE | 2021-05-15 08:15 | P.CONS_ITS ---
[facility] Pain Management SOAP Note Subjective:: Patient is a pleasant 65 year old female who comes in for follow-up and medication refill. Patient is currently being treated for DDD lumbar. Patient is being managed with [place] 10mg QID and Gabapentin 100mg TID. Patient denies any side effects from these medications. Patient denies any change to the location and type of pain. Patient rates her pain as 3/10. Her grisel is [phone] with an active morphine equivalent of 0. Drug screens have been reviewed and appropriate. Patient's ORT score is 1, low risk. General: No recent weight changes, no fever, no sleep disturbances Respiratory: No cough, no shortness of air, no recurring pulmonary infections Cardiovascular/peripheral vascular: No chest pain, no palpitations, no edema, no shortness of breath Gastrointestinal: No new onset incontinence, normal bowel movements reported Genitourinary: No new onset incontinence Musculoskeletal: low back pain Psychiatric: [Normal mood/affect] Neurological: [Denies weakness in extremities], [denies balance issues] Objective:: General: Alert and oriented x3, no acute distress, pleasant and cooperative, [on room air] Lungs: Respirations even and unlabored, symmetrical chest expansion Eyes: PERRL Musculoskeletal: Flexion and extension of [lumbar] [spine] somewhat guarded secondary to pain Neurological: Speech clear, no gross sensory deficit Assessment:: Degenerative Disc Disease of the Lumbar Spine with Lumbar Radiculopathy Plan:: Plan:: We will continue the patient's [[place] 10mg four time a day and Gabapentin 100mg three times a day.]. We will provide the patient with [1 month] of refills. We would like to see the patient back in [1 month] for follow-up. Risks and benefits of the medication have been explained in detail to the patie nt. The patient does understand the risk of dependence on the medication when given over a prolonged period. Patient has been advised of risks of oversedation with the prescribed medication. Narcan has been offered to the paitent in the event of oversedation. Patient has been advised that a family member should also be educated regarding administration of Narcan. The patient has been advised to consult with his/her primary care provider and pharmacist regarding drug-drug interaction of medications currently prescribed. Patient has been prescribed a controlled substance after being counseled on the medication, medication safety, and possible side effects. GRISEL report has been obtained and reviewed prior to prescription and found to be appropriate. Opioid contract was reviewed and signed by the patient, and that they have agreed to all of the terms set forth by our compliance program. Patient has been instructed to contact the clinic with any concerns before the next appointment. Dr. Beth has reviewed this note and agrees with this plan of care. This note was dictated using voice recognition software and make contain errors or omissions. ORT is low risk. Patient has signed and completed a pain management agreement/contract today. [facility] History I have reviewed the patient's past medical history: Yes *Have you ever received a pneumonia vaccine?: Yes *Have you received a flu vaccine this season?: Yes - *Social History Smoking Status: Unknown if ever smoked Alcohol Intake: never Substance Use Type: denies use *Occupational Status:: unemployed *Travel in the last 8 weeks: None Family Hx:: Non-contributory
== END ==
PROVIDERS: Visit Provider Clinical Nurse Specialist Family Health
DX: M51.16 Intervertebral disc disorders with radiculopathy, lumbar region (principal)
CPT/HCPCS: 99212; G0463

== ENCOUNTER → 2021-06-14 07:38 | Outpatient (POV) | payer BC, SELFPAY ==
--- NOTE | 2021-06-14 08:30 | HMH.VVPMSO ---
[facility] PM Virtual Visit SOAP Consent for virtual visit:: With the recent concerns about the COVID-19, we are trying to minimize exposure to you by shifting to telehealth appointments whenever possible. It restricts me from seeing you in person, but the trade off is protecting you during this pandemic. Can you see and hear me okay, and do you consent to this option? If not, I would be happy to see if we can reschedule your appointment in the future, when feasible. Has patient consented to this virtual visit?: Yes Subjective:: Patient is a 65-year-old white female who is following up today via telehealth medicine phone visit. We are following up today via telehealth due to with patients locally. Patient says she is doing well overall with her medications. She gets [place] 10 mg 1 tablet p.o. 4 times daily and gabapentin 100 mg 1 tablet p.o. 3 times daily. She is treated for chronic low back pain with radiation into bilateral lower extremities. Medicine gives her 60 to 70% relief of her symptoms. Grisel is appropriate, drug screens have been appropriate in the past. She denies any side effects to the medicine. Review of Systems General: No recent weight changes, no fever, no sleep disturbances Respiratory: No cough, no shortness of air, no recurring pulmonary infections Cardiovascular/peripheral vascular: No chest pain, no palpitations, no edema, no shortness of breath Gastrointestinal: No new onset incontinence, normal bowel movements reported Genitourinary: No new onset incontinence Musculoskeletal: Chronic low back pain with radiation into bilateral lower extremities Psychiatric: [Normal mood/affect] Neurological: [Denies weakness in extremities], [denies balance issues] Objective:: Physical exam General: Alert and oriented x3, no acute distress, pleasant and cooperative Lungs: Respirations even and unlabored, symmetrical chest expansion Eyes: PERRL Musculoskeletal: Flexion and extension of lumbar [spine] somewhat guarded secondary to pain, [antalgic gait noted] Neurological: Speech clear, no gross sensory deficit Assessment:: Degenerative disc disease lumbar spine with lumbar radiculopathy symptoms Plan:: We will continue the patient's [place] 10 mg 1 tablet p.o. 4 times daily, gabapentin 100 mg 1 tablet p.o. 3 times daily. She will get a month medication will be seen in the clinic next visit. Risks and benefits of the medication have been explained in detail to the patient. The patient does understand the risk of dependence on the medication when given over a prolonged period. Patient has been advised of risks of oversedation with the prescribed medication. Narcan has been offered to the paitent in the event of oversedation. Patient has been advised that a family member should also be educated regarding administration of Narcan. The patient has been advised to consult with his/her primary care provider and pharmacist regarding drug-drug interaction of medications currently prescribed. Patient has been prescribed a controlled substance after being counseled on the medication, medication safety, and possible side effects. GRISEL report has been obtained and reviewed prior to prescription and found to be appropriate. Opioid contract was reviewed and signed by the patient, and that they have agreed to all of the terms set forth by our compliance program. Patient has been instructed to contact the clinic with any concerns before the next appointment. Dr. Beth has reviewed this note and agrees with this plan of care. This note was dictated using voice recognition software and make contain errors or omissions. Time In:: 08:25 Time Out:: 08:32 [facility] History I have reviewed the patient's past medical history: Yes *Have you ever received a pneumonia vaccine?: Yes *Have you received a flu vaccine this season?: Yes - *Social History Smoking Status: Unknown if ever smoked Alcohol Intake: never Substance Use Ty
== END ==
PROVIDERS: Visit Provider Clinical Nurse Specialist Family Health
DX: M51.16 Intervertebral disc disorders with radiculopathy, lumbar region (principal)
CPT/HCPCS: 99212; G0463

== ENCOUNTER → 2021-07-12 13:58 | Outpatient (POV) | payer BC, SELFPAY ==
--- NOTE | 2021-07-12 14:18 | P.CONS_ITS ---
[facility] Pain Management SOAP Note Subjective:: This patient is very pleasant 65-year-old white female who presents today for follow-up. She is currently being treated for degenerative disease and lumbar spinal lumbar radiculopathy. She is currently prescribed [place] 10 mg 1 tablet 4 times daily and gabapentin 100 mg 1 tablet p.o. 3 times daily. She denies any adverse effects to his medications. She states that these medications allow her to maintain her functionality and overall mobility. She is requesting refills today on these medications. She rates her pain today is a 6 out of 10. Objective:: General: Alert and oriented x3, no acute distress, pleasant and cooperative Lungs: Resps E/U, symmetric chest expansion Eyes: PERRL Musculoskeletal: limited flexion and extension of the lumbar spine secondary to pain. Deep tendon reflexes were normal in bilateral lower extremities. Motor exam was grossly intact in the bilateral lower extremities, antalgic gait noted. 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 4 times daily #120 and gabapentin 100 mg 1 tablet p.o. 3 times daily #90 for 1 month supply with 2 refills. We will follow-up with this patient in 1 month for reassessment of her chronic pain symptoms and medication refills. Osbaldo and prior tracings reviewed and appropriate. [facility] History *Have you ever received a pneumonia vaccine?: Yes *Have you received a flu vaccine this season?: Yes - *Social History Smoking Status: Unknown if ever smoked Alcohol Intake: never Substance Use Type: denies use *Occupational Status:: unemployed *Travel in the last 8 weeks: None Family Hx:: Non-contributory
[2021-07-12 15:34] VITALS: BP 142/69; PULSE 64; RESP 18; TEMP 36.6; O2SAT 97; BMI 37.8
[2021-07-12 18:12] LABS: Amphetamine/Metha Screen,Urine Negative ng/ml (<1000)
[2021-07-12 18:13] LABS: Barbiturates Screen,Urine Negative ng/ml (<200)
[2021-07-12 18:14] LABS: Benzodiazepines Screen,Urine Negative ng/ml (<200)
[2021-07-12 18:15] LABS: Cannabinoid Screen,Urine Negative ng/ml (<50); Cocaine Screen,Urine Negative ng/ml (<300)
[2021-07-12 18:16] LABS: Methadone Screen,Urine Negative ng/ml (<300)
[2021-07-12 18:17] LABS: Opiate Screen,Urine Positive ng/ml (<300)
[2021-07-12 18:18] LABS: Phencyclidine Screen,Urine Negative ng/ml (<25)
[2021-07-30 19:09] LABS: Codeine Negative (Cutoff=100); Hydrocodone Positive (.); Hydromorphone Positive (.); Morphine Negative (Cutoff=100); Opiates Positive (.)
== END ==
PROVIDERS: Visit Provider Anesthesiology Pain Medicine
DX: M51.16 Intervertebral disc disorders with radiculopathy, lumbar region (principal); G89.4 Chronic pain syndrome
CPT/HCPCS: 80305; 80361; 80365; 99212; G0463; G0480

== ENCOUNTER → 2021-08-13 13:22 | Outpatient (POV) | payer BC, SELFPAY ==
[2021-08-13 13:53] VITALS: BP 157/76; PULSE 64; RESP 18; TEMP 36.8; O2SAT 97; BMI 38.6
--- NOTE | 2021-08-13 14:23 | HMH.PAINSOAP ---
[facility] Pain Management SOAP Note Subjective:: Patient is a pleasant 65-year-old female who is here for medication refill and follow-up. Patient is currently being treated for degenerative disc disease of lumbar spine with lumbar radiculopathy symptoms, chronic pain syndrome. Patient is being managed with [place] 10 mg 4 times a day and gabapentin 100 mg 3 times a day. Patient denies any side effects from the medications. Patient denies any changes to the location and type of pain. Patient states that this is adequately helping manage their pain. Rates pain as 3 out of. Osbaldo number [phone] with an active morphine equivalent 40. Drug screens have been reviewed and appropriate. Review of Systems: General: No recent weight changes, no fever, no sleep disturbances Respiratory: No cough, no shortness of air, no recurring pulmonary infections Cardiovascular/peripheral vascular: No chest pain, no palpitations, no edema, no shortness of breath Gastrointestinal: No new onset incontinence, normal bowel movements reported Genitourinary: No new onset incontinence Musculoskeletal: Low back pain Psychiatric: [Normal mood/affect] Neurological: [Denies weakness in extremities], [denies balance issues] Objective:: Physical Exam: General: Alert and oriented x3, no acute distress, pleasant and cooperative, [on room air] Lungs: Respirations even and unlabored, symmetrical chest expansion Eyes: PERRL Musculoskeletal: Flexion and extension of lumbar [spine] somewhat guarded secondary to pain, [antalgic gait noted] Neurological: Speech clear, no gross sensory deficit Assessment:: Degenerative disc disease of lumbar spine with lumbar radiculopathy symptoms, chronic pain syndrome Plan:: We will continue the patient's Star[place] 10 mg 4 times a day and gabapentin 100 mg 3 times a day. We will provide the patient with 1 month of refills. We would like to see the patient back in 1 month for follow-up and reevaluation of chronic pain syndrome. Patient has been advised of risks of oversedation with the prescribed medication. Narcan has been offered to the patient in the event of oversedation. Patient has been advised that a family member should also be educated regarding administration of Narcan. Patient has been instructed to contact the clinic with any concerns before the next appointment. Dr. Beth has reviewed this note and agrees with this plan of care. This note was dictated using voice recognition software and make contain errors or omissions. [facility] History *Have you ever received a pneumonia vaccine?: Yes *Have you received a flu vaccine this season?: Yes - *Social History Smoking Status: Unknown if ever smoked Alcohol Intake: never Substance Use Type: denies use *Occupational Status:: employed *Travel in the last 8 weeks: None Family Hx:: Non-contributory
== END ==
PROVIDERS: Visit Provider Student in an Organized Health Care Education/Training Program
DX: M51.16 Intervertebral disc disorders with radiculopathy, lumbar region (principal); G89.4 Chronic pain syndrome
CPT/HCPCS: 99212; G0463

== ENCOUNTER → 2021-09-13 14:03 | Outpatient (POV) | payer BC, SELFPAY ==
--- NOTE | 2021-09-13 14:52 | HMH.PAINSOAP ---
[facility] Pain Management SOAP Note Subjective:: Patient is a pleasant 65-year-old female who is here for medication refill and follow-up. Patient is currently being treated for degenerative disc disease of lumbar spine with lumbar radiculopathy symptoms, chronic pain syndrome. Patient is being managed with [place] 10 mg 4 times a day and gabapentin 100 mg 3 times a day. Patient denies any side effects from the medications. Patient denies any changes to the location and type of pain. Patient states that this is adequately helping manage their pain. Rates pain as 8 out of 10. [facility] number [phone] with an active morphine equivalent 40. Drug screens have been reviewed and appropriate. Review of Systems: General: No recent weight changes, no fever, no sleep disturbances Respiratory: No cough, no shortness of air, no recurring pulmonary infections Cardiovascular/peripheral vascular: No chest pain, no palpitations, no edema, no shortness of breath Gastrointestinal: No new onset incontinence, normal bowel movements reported Genitourinary: No new onset incontinence Musculoskeletal: Low back pain Psychiatric: [Normal mood/affect] Neurological: [Denies weakness in extremities], [denies balance issues] Objective:: Physical Exam: General: Alert and oriented x3, no acute distress, pleasant and cooperative Lungs: Respirations even and unlabored, symmetrical chest expansion Eyes: PERRL Musculoskeletal: Flexion and extension of lumbar [spine] somewhat guarded secondary to pain, [antalgic gait noted] Neurological: Speech clear, no gross sensory deficit Assessment:: Degenerative disc disease of lumbar spine with lumbar radiculopathy symptoms Plan:: We will continue the patient's [place] 10 mg 4 times a day and gabapentin 100 mg 3 times a day. We will provide the patient with 1 month of refills. We would like to see the patient back in 1 month for follow-up and reevaluation of chronic pain syndrome. Patient has been advised of risks of oversedation with the prescribed medication. Narcan has been offered to the patient in the event of oversedation. Patient has been advised that a family member should also be educated regarding administration of Narcan. Patient has been instructed to contact the clinic with any concerns before the next appointment. Dr. Beth has reviewed this note and agrees with this plan of care. This note was dictated using voice recognition software and make contain errors or omissions. [facility] History *Have you ever received a pneumonia vaccine?: Yes *Have you received a flu vaccine this season?: Yes - *Social History Smoking Status: Unknown if ever smoked Alcohol Intake: never Substance Use Type: denies use *Occupational Status:: employed *Travel in the last 8 weeks: Inside the [facility] Family Hx:: Non-contributory
[2021-09-13 15:02] VITALS: BP 181/86; PULSE 67; RESP 18; TEMP 36.8; O2SAT 97; BMI 38.6
== END ==
PROVIDERS: Visit Provider Student in an Organized Health Care Education/Training Program
DX: M51.16 Intervertebral disc disorders with radiculopathy, lumbar region (principal)
CPT/HCPCS: 99212; G0463

== ENCOUNTER → 2021-10-15 11:26 | Outpatient (POV) | payer BC, SELFPAY ==
[2021-10-15 12:19] VITALS: BP 186/84; PULSE 74; RESP 18; TEMP 36.6; O2SAT 95; BMI 34.9
--- NOTE | 2021-10-15 12:52 | P.CONS_ITS ---
[facility] Pain Management SOAP Note Subjective:: Patient is a pleasant 65-year-old female who is here for medication refill and follow-up. Patient is currently being treated for degenerative disc disease of lumbar spine with lumbar radiculopathy symptoms, chronic pain syndrome. Patient is being managed with [place] 10 mg 4 times a day and gabapentin 100 mg 3 times a day. Patient denies any side effects from the medications. Patient denies any changes to the location and type of pain. Patient states that this is adequately helping manage their pain. Rates pain as 3 out of 10. [facility] number [id number] with an active morphine equivalent 40. Drug screens have been reviewed and appropriate. Review of Systems: General: No recent weight changes, no fever, no sleep disturbances Respiratory: No cough, no shortness of air, no recurring pulmonary infections Cardiovascular/peripheral vascular: No chest pain, no palpitations, no edema, no shortness of breath Gastrointestinal: No new onset incontinence, normal bowel movements reported Genitourinary: No new onset incontinence Musculoskeletal: Low back pain Psychiatric: [Normal mood/affect] Neurological: [Denies weakness in extremities], [denies balance issues] Objective:: Physical Exam: General: Alert and oriented x3, no acute distress, pleasant and cooperative Lungs: Respirations even and unlabored, symmetrical chest expansion Eyes: PERRL Musculoskeletal: Flexion and extension of lumbar [spine] somewhat guarded secondary to pain, [antalgic gait noted] Neurological: Speech clear, no gross sensory deficit Assessment:: Degenerative disc disease of the lumbar spine with lumbar radiculopathy symptoms Plan:: We will continue the patient's [place] 10 mg 4 times a day and gabapentin 100 mg 3 times a day. We will provide the patient with 1 month of refills. We would like to see the patient back in 1 month for follow-up and reevaluation of chronic pain syndrome. Patient has been advised of risks of oversedation with the prescribed medication. Narcan has been offered to the patient in the event of oversed ation. Patient has been advised that a family member should also be educated regarding administration of Narcan. Patient has been instructed to contact the clinic with any concerns before the next appointment. Dr. Beth has reviewed this note and agrees with this plan of care. This note was dictated using voice recognition software and make contain errors or omissions. [facility] History *Have you ever received a pneumonia vaccine?: Yes *Have you received a flu vaccine this season?: Yes - *Social History Smoking Status: Unknown if ever smoked Alcohol Intake: never Substance Use Type: denies use *Occupational Status:: unemployed *Travel in the last 8 weeks: None Family Hx:: Non-contributory
== END ==
PROVIDERS: Visit Provider Student in an Organized Health Care Education/Training Program
DX: M51.16 Intervertebral disc disorders with radiculopathy, lumbar region (principal); G89.4 Chronic pain syndrome
CPT/HCPCS: 99212; G0463

== ENCOUNTER → 2021-11-13 11:16 | Outpatient (POV) | payer BC, SELFPAY ==
[2021-11-13 11:36] VITALS: BP 151/79; PULSE 69; RESP 18; TEMP 36.6; O2SAT 97; BMI 39.1
--- NOTE | 2021-11-13 11:43 | HMH.PAINSOAP ---
[facility] Pain Management SOAP Note Subjective:: Patient is a pleasant 65-year-old female who is here for medication refill and follow-up. Patient is currently being treated for degenerative disc disease of lumbar spine with lumbar radiculopathy symptoms, chronic pain syndrome. Patient is being managed with [place] 10 mg 4 times a day and gabapentin 100 mg 3 times a day. Patient denies any side effects from the medications. Patient denies any changes to the location and type of pain. Patient states that this is adequately helping manage their pain. Rates pain as 3 out of 10. [facility] number [id number] with an active morphine equivalent 40. Drug screens have been reviewed and appropriate. Review of Systems: General: No recent weight changes, no fever, no sleep disturbances Respiratory: No cough, no shortness of air, no recurring pulmonary infections Cardiovascular/peripheral vascular: No chest pain, no palpitations, no edema, no shortness of breath Gastrointestinal: No new onset incontinence, normal bowel movements reported Genitourinary: No new onset incontinence Musculoskeletal: Low back pain, right lower extremity pain Psychiatric: [Normal mood/affect] Neurological: [Denies weakness in extremities], [denies balance issues] Objective:: Physical Exam: General: Alert and oriented x3, no acute distress, pleasant and cooperative Lungs: Respirations even and unlabored, symmetrical chest expansion Eyes: PERRL Musculoskeletal: Flexion and extension of lumbar [spine] somewhat guarded secondary to pain, [antalgic gait noted] Neurological: Speech clear, no gross sensory deficit Assessment:: Degenerative disc disease of lumbar spine with lumbar radiculopathy symptoms, chronic pain syndrome Plan:: We will continue the patient's [place] 10 mg 4 times a day and gabapentin 100 mg 3 times a day. We will provide the patient with 1 month of refills. We would like to see the patient back in 1 month for follow-up and reevaluation of chronic pain syndrome. Patient has been advised of risks of oversedation with the prescribed medication. Narcan has been offered to the patient in the event of oversedation. Patient has been advised that a family member should also be educated regarding administration of Narcan. Patient has been instructed to contact the clinic with any concerns before the next appointment. Dr. Beth has reviewed this note and agrees with this plan of care. This note was dictated using voice recognition software and make contain errors or omissions. [facility] History *Have you ever received a pneumonia vaccine?: Yes *Have you received a flu vaccine this season?: Yes - *Social History Smoking Status: Unknown if ever smoked Alcohol Intake: never Substance Use Type: denies use *Occupational Status:: other *Travel in the last 8 weeks: None Family Hx:: Non-contributory
[2021-11-13 15:21] LABS: Amphetamine/Metha Screen,Urine Negative ng/ml (<1000); Benzodiazepines Screen,Urine Negative ng/ml (<200)
[2021-11-13 15:22] LABS: Barbiturates Screen,Urine Negative ng/ml (<200); Cannabinoid Screen,Urine Negative ng/ml (<50)
[2021-11-13 15:23] LABS: Cocaine Screen,Urine Negative ng/ml (<300)
[2021-11-13 15:24] LABS: Methadone Screen,Urine Negative ng/ml (<300)
[2021-11-13 15:25] LABS: Opiate Screen,Urine Positive ng/ml (<300)
[2021-11-13 15:26] LABS: Phencyclidine Screen,Urine Negative ng/ml (<25)
[2021-11-29 10:16] LABS: Codeine Negative (Cutoff=100); Hydrocodone Positive (.); Hydromorphone Positive (.); Morphine Negative (Cutoff=100); Opiates Positive (.)
== END ==
LOC: SC.PAIN 11:16
PROVIDERS: Visit Provider Student in an Organized Health Care Education/Training Program
DX: M51.16 Intervertebral disc disorders with radiculopathy, lumbar region (principal); G89.4 Chronic pain syndrome
CPT/HCPCS: 80305; 80361; 80365; 99212; G0463; G0480

== ENCOUNTER → 2021-12-13 11:21 | Outpatient (POV) | payer BC, SELFPAY ==
[2021-12-13 11:27] VITALS: BP 179/90; PULSE 74; RESP 20; O2SAT 96; BMI 37.8
--- NOTE | 2021-12-13 11:39 | P.CONS_ITS ---
[facility] Pain Management SOAP Note Subjective:: Patient is a pleasant 66-year-old female who presents today for medication refill and follow-up. We are currently treating the patient for degenerative disc disease of lumbar spine with lumbar radiculopathy symptoms, chronic pain syndrome. Today the patient rates her pain a 4 out of 10. She states this pain is all in her low back and describes it as a aching sensation. She denies any new trauma or injury to the site. She denies any change to the location or type of pain she experiences. We are currently managing the patient with [place] 10 mg 4 times a day and gabapentin 100 mg 3 times a day. Patient denies any side effects from these medications. She does state these medications help a dequately manage her pain. Her Osbaldo is [id number]. Is been reviewed and appropriate. Review of Systems: General: No recent weight changes, no fever, no sleep disturbances Respiratory: No cough, no shortness of air, no recurring pulmonary infections Cardiovascular/peripheral vascular: No chest pain, no palpitations, no edema, no shortness of breath Gastrointestinal: No new onset incontinence, normal bowel movements reported Genitourinary: No new onset incontinence Musculoskeletal: Low back pain Psychiatric: [Normal mood/affect] Neurological: [Denies weakness in extremities], [denies balance issues] Objective:: Physical Exam: General: Alert and oriented x3, no acute distress, pleasant and cooperative Lungs: Respirations even and unlabored, symmetrical chest expansion Eyes: PERRL Musculoskeletal: Flexion and extension of lumbar [spine] somewhat guarded secondary to pain, [antalgic gait noted] Neurological: Speech clear, no gross sensory deficit Assessment:: Degenerative disc disease of lumbar spine with lumbar radiculopathy symptoms, chronic pain syndrome Plan:: Patient experiences significant pain in her low back. We will refill the patient's [place] 10 mg 4 times a day and gabapentin 100 mg 3 times a day. We will provide the patient a 1 month supply of this medication. I will also prescribe the patient a compounding cream at today's visit. Patient will return to clinic in 1 month for follow-up and reevaluation of symptoms. Patient has been advised of risk of oversedation with the prescribed medication. Patient has been instructed to contact the clinic with any concerns before the next appointment. Dr. Beth has reviewed this note and agrees with this plan of care. This note was dictated using voice recognition software and make contain errors or omissions. [facility] History I have reviewed the patient's past medical history: Yes *Have you ever received a pneumonia vaccine?: Yes *Have you received a flu vaccine this season?: Yes - *Social History Smoking Status: Unknown if ever smoked Alcohol Intake: never Substance Use Type: denies use *Occupational Status:: other *Travel in the last 8 weeks: None Family Hx:: Non-contributory
== END ==
PROVIDERS: PCP Family Medicine; Visit Provider Nurse Practitioner Family
DX: M51.16 Intervertebral disc disorders with radiculopathy, lumbar region (principal); G89.4 Chronic pain syndrome
CPT/HCPCS: 99212; G0463

== ENCOUNTER → 2022-01-10 09:25 | Outpatient (POV) | payer BC, SELFPAY ==
[2022-01-10 09:37] VITALS: BP 193/87; PULSE 71; RESP 18; TEMP 36.8; O2SAT 95; BMI 36.0
--- NOTE | 2022-01-10 09:44 | A.OFFVIS_ITS ---
[facility] Pain Management SOAP Note Subjective:: Patient is a pleasant 66-year-old that presents today for follow-up and medication refill. We are currently treating the patient for degenerative disc disease of lumbar spine with lumbar radiculopathy symptoms, chronic pain syndrome. Today the patient rates her pain a 3 out of 10 and states it is primarily in her low back and describes it as an aching sensation. Patient denies any new trauma to the site. She denies any change to the location or type of pain she experiences. We are currently managing the patient with [place] 10 mg 4 times a day and gabapentin 100 mg 3 times a day. Patient denies any side effects from these medications. She states these medications do adequately manage her pain. She is requesting refills at today's visit. Patient does also use compounding cream and states this provides significant improvement in her pain symptoms. Her Osbaldo is [id number]. It has been reviewed and appropriate. Review of Systems: General: No recent weight changes, no fever, no sleep disturbances Respiratory: No cough, no shortness of air, no recurring pulmonary infections Cardiovascular/peripheral vascular: No chest pain, no palpitations, no edema, no shortness of breath Gastrointestinal: No new onset incontinence, normal bowel movements reported Genitourinary: No new onset incontinence Musculoskeletal: Low back pain Psychiatric: [Normal mood/affect] Neurological: [Denies weakness in extremities], [denies balance issues] Objective:: Physical Exam: General: Alert and oriented x3, no acute distress, pleasant and cooperative Lungs: Respirations even and unlabored, symmetrical chest expansion Eyes: PERRL Musculoskeletal: Flexion and extension of lumbar [spine] somewhat guarded secondary to pain, [antalgic gait noted] Neurological: Speech clear, no gross sensory deficit Assessment:: Degenerative disc disease of lumbar spine with lumbar radiculopathy symptoms, chronic pain syndrome Plan:: Patient continues to have significant pain in her low back we will refill the patient's [place] 10 mg 4 times a day and gabapentin 100 mg 3 times a day. I will provide the patient a 1 month supply of this medication. Patient will return to clinic in 1 month for follow-up and reevaluation of symptoms. Patient has been advised of risks of oversedation with the prescribed medication. Narcan has been offered to the patient in the event of oversedation. Patient has been advised that a family member should also be educated regarding administration of Narcan. Patient has been instructed to contact the clinic with any concerns before the next appointment. Dr. Beth has reviewed this note and agrees with this plan of care. This note was dictated using voice recognition software and make contain errors or omissions. PFSH PFSH Social History Smoking Status: Unknown if ever smoked alcohol intake: never substance use type: denies use current occupational status: retired
== END | disposition home or self-care (01) ==
PROVIDERS: PCP Family Medicine; Visit Provider Nurse Practitioner Family
DX: M51.16 Intervertebral disc disorders with radiculopathy, lumbar region (principal); G89.4 Chronic pain syndrome
CPT/HCPCS: 99212; G0463

== ENCOUNTER → 2022-02-11 09:36 | Outpatient (POV) | payer BC, SELFPAY ==
[2022-02-11 09:51] VITALS: BP 173/80; PULSE 73; RESP 18; TEMP 36.9; O2SAT 94; BMI 37.8
--- NOTE | 2022-02-11 09:52 | A.OFFVIS_ITS ---
[facility] Pain Management SOAP Note Subjective:: Patient is a pleasant 66-year-old female who presents today for medication refill and follow-up. We are currently treating the patient for degenerative disc disease of lumbar spine with lumbar radiculopathy symptoms, chronic pain syndrome. Today the patient rates her pain a 3 out of 10 and states it is in her low back that she describes as a aching, throbbing sensation that is worse with increased activity. Patient denies any new trauma or injury to the site. She denies any change to the location or type of pain she experiences. We are currently managing the patient with a compounding cream that she states does add additional symptom relief along with her [place] 10 mg 4 times a day and gabapentin 100 mg 3 times a day. Patient denies any side effects from these medications. She states these medications are helping manage her pain symptoms. She is requesting a refill at today's visit. Her Osbaldo is [id number]. It has been reviewed and appropriate. Review of Systems: General: No recent weight changes, no fever, no sleep disturbances Respiratory: No cough, no shortness of air, no recurring pulmonary infections Cardiovascular/peripheral vascular: No chest pain, no palpitations, no edema, no shortness of breath Gastrointestinal: No new onset incontinence, normal bowel movements reported Genitourinary: No new onset incontinence Musculoskeletal: [Low back pain] Psychiatric: [Normal mood/affect] Neurological: [Denies weakness in extremities], [denies balance issues] Objective:: Physical Exam: General: Alert and oriented x3, no acute distress, pleasant and cooperative Lungs: Respirations even and unlabored, symmetrical chest expansion Eyes: PERRL Musculoskeletal: Flexion and extension of lumbar [spine] somewhat guarded secondary to pain, [antalgic gait noted] Neurological: Speech clear, no gross sensory deficit Assessment:: Degenerative disc disease of lumbar spine with lumbar radiculopathy symptoms neck pain syndrome Plan:: Patient continues to have significant pain in her low back however it is managed well with her current medication regimen. I will refill the patient's gabapentin 100 mg 3 times a day and [place] 10 mg 4 times a day and provide a 1 month supply of this medication. Patient will return to clinic in 1 month for medication refill and reevaluation of symptoms. Patient has been advised of risks of oversedation with the prescribed medication. Narcan has been offered to the patient in the event of oversedation. Patient has been advised that a family member should also be educated regarding administration of Narcan. Patient has been instructed to contact the clinic with any concerns before the next appointment. Dr. Beth has reviewed this note and agrees with this plan of care. This note was dictated using voice recognition software and make contain errors or omissions. [facility] Social History (Updated 01/10/22 @ 09:46 by Natty Beck APRN) Smoking Status: Unknown if ever smoked alcohol intake: never substance use type: denies use current occupational status: retired Travel in the last 8 weeks: Inside the [facility]
[2022-02-11 11:45] LABS: Amphetamine/Metha Screen,Urine Negative ng/ml (<1000)
[2022-02-11 11:46] LABS: Barbiturates Screen,Urine Negative ng/ml (<200); Benzodiazepines Screen,Urine Negative ng/ml (<200)
[2022-02-11 11:47] LABS: Cannabinoid Screen,Urine Negative ng/ml (<50); Cocaine Screen,Urine Negative ng/ml (<300)
[2022-02-11 11:48] LABS: Methadone Screen,Urine Negative ng/ml (<300)
[2022-02-11 11:49] LABS: Opiate Screen,Urine Positive ng/ml (<300)
[2022-02-11 11:51] LABS: Phencyclidine Screen,Urine Negative ng/ml (<25)
[2022-02-18 08:09] LABS: Codeine Negative (Cutoff=100); Hydrocodone Positive (.); Hydromorphone Positive (.); Morphine Negative (Cutoff=100); Opiates Positive (.)
== END | disposition home or self-care (01) ==
PROVIDERS: PCP Family Medicine; Visit Provider Nurse Practitioner Family
DX: M51.16 Intervertebral disc disorders with radiculopathy, lumbar region (principal); Z79.899 Other long term (current) drug therapy
CPT/HCPCS: 80305; 80361; 80365; 99212; G0463; G0480

== ENCOUNTER → 2022-03-14 09:02 | Outpatient (POV) | payer BC, SELFPAY ==
[2022-03-14 09:08] VITALS: BP 158/80; PULSE 73; RESP 18; TEMP 36.6; O2SAT 96; BMI 38.6
--- NOTE | 2022-03-14 09:33 | A.OFFVIS_ITS ---
[facility] Pain Management SOAP Note Subjective:: Patient is a pleasant 66-year-old female who presents today for medication refill and follow-up. We are currently treating the patient for degenerative disc disease of lumbar spine with lumbar radiculopathy symptoms, chronic pain syndrome today the patient rates her pain a 3 out of 10. Patient denies any new trauma or injury. She denies any change in location or type of pain she experiences. She does state her pain is in her low back and describes it as a throbbing, aching sensation that is worse with increased activity. Patient is currently managed with [place] 10 mg 4 times a day and gabapentin 100 mg 3 times a day. Patient denies any side effects from this medication. She states this medication does adequately manage her pain symptoms. She is requesting refills on these medications at today's visit. Patient is also prescribed compounding cream that she states provides significant improvement as well. Her Osbaldo is [id number]. Its been reviewed and appropriate. Review of Systems: General: No recent weight changes, no fever, no sleep disturbances Respiratory: No cough, no shortness of air, no recurring pulmonary infections Cardiovascular/peripheral vascular: No chest pain, no palpitations, no edema, no shortness of breath Gastrointestinal: No new onset incontinence, normal bowel movements reported Genitourinary: No new onset incontinence Musculoskeletal: Low back pain Psychiatric: [Normal mood/affect] Neurological: [Denies weakness in extremities], [denies balance issues] Objective:: Physical Exam: General: Alert and oriented x3, no acute distress, pleasant and cooperative Lungs: Respirations even and unlabored, symmetrical chest expansion Eyes: PERRL Musculoskeletal: Flexion and extension of lumbar [spine] somewhat guarded secondary to pain, [antalgic gait noted] Neurological: Speech clear, no gross sensory deficit Assessment:: Degenerative disc disease of lumbar spine with lumbar radiculopathy symptoms, chronic pain syndrome Plan:: Patient continues to have pain in her low back with radiating symptoms into her lower extremities however she is managed well with her current medication regimen. I will refill the patient's [place] 10 mg 4 times a day and gabapentin 100 mg 3 times a day and provide a 1 month supply of this medication. Patient will return to clinic in 1 month for reevaluation of symptoms, medication refill and follow-up. Patient has been advised of risks of oversedation with the prescribed medication. Marcel[place] has been offered to the patient in the event of oversedation. Patient has been advised that a family member should also be educated regarding administration of Narcan. Patient has been instructed to contact the clinic with any concerns before the next appointment. Dr. Beth has reviewed this note and agrees with this plan of care. This note was dictated using voice recognition software and make contain errors or omissions. [facility] Social History (Updated 01/10/22 @ 09:46 by Natty Beck APRN) Smoking Status: Unknown if ever smoked alcohol intake: never substance use type: denies use current occupational status: retired Travel in the last 8 weeks: None
== END | disposition home or self-care (01) ==
PROVIDERS: PCP Family Medicine; Visit Provider Nurse Practitioner Family
DX: M51.16 Intervertebral disc disorders with radiculopathy, lumbar region (principal); G89.4 Chronic pain syndrome
CPT/HCPCS: 99212; G0463

== ENCOUNTER → 2022-04-11 09:23 | Outpatient (POV) | payer BC, SELFPAY ==
[2022-04-11 09:41] VITALS: BP 119/71; PULSE 63; RESP 18; O2SAT 95; BMI 38.6
--- NOTE | 2022-04-11 09:50 | EXP.PAIN.SOA ---
[facility] Pain Management SOAP Note Subjective:: Patient is a pleasant 66-year-old female who presents today for medication refill and follow-up. We are currently treating the patient for degenerative disc disease of lumbar spine with lumbar radiculopathy symptoms, chronic pain syndrome. Today she rates her pain a 3 out of 10. Patient denies any new trauma or injury. Patient denies any change location or type of pain she experiences. Patient does state that she has recently been diagnosed with the flu as of last week and then strep. Patient is currently managed with [place] 10 mg 4 times a day and gabapentin 100 mg 3 times a day. Patient was also given compounding cream that she states provides significant improvement as well. Patient denies any side effects from these medications. She states these medications do help her pain symptoms. She is requesting refill at today's visit. Her Osbaldo is [id number]. It has been reviewed and appropriate. Review of Systems: General: No recent weight changes, no fever, no sleep disturbances Respiratory: No cough, no shortness of air, no recurring pulmonary infections Cardiovascular/peripheral vascular: No chest pain, no palpitations, no edema, no shortness of breath Gastrointestinal: No new onset incontinence, normal bowel movements reported Genitourinary: No new onset incontinence Musculoskeletal: Low back pain Psychiatric: [Normal mood/affect] Neurological: [Denies weakness in extremities], [denies balance issues] Objective:: Physical Exam: General: Alert and oriented x3, no acute distress, pleasant and cooperative Lungs: Respirations even and unlabored, symmetrical chest expansion Eyes: PERRL Musculoskeletal: Flexion and extension of lumbar [spine] somewhat guarded secondary to pain, [antalgic gait noted] Neurological: Speech clear, no gross sensory deficit Assessment:: Degenerative disc disease of lumbar spine with lumbar radiculopathy symptoms, chronic pain syndrome Plan:: Patient continues to experience significant pain in her low back with radiating symptoms into her lower extremities however she is doing well with her current medication regimen. I will refill the patient's [place] 10 mg 4 times a day and gabapentin 100 mg 3 times a day and provide a 1 month supply of this medication. Patient will return to clinic in 1 month for reevaluation of symptoms, medication refill and follow-up. Patient has been advised of risks of oversedation with the prescribed medication. Narcan has been offered to the patient in the event of oversedation. Patient has been advised that a family member should also be educated regarding administration of Narcan. Patient has been instructed to contact the clinic with any concerns before the next appointment. Dr. Beth has reviewed this note and agrees with this plan of care. This note was dictated using voice recognition software and make contain errors or omissions. [facility] Disclaimer: The information contained in this section may have been updated after the patient was seen, as this information can be updated by other users. Social History (Updated 01/10/22 @ 09:46 by Natty Beck APRN) Smoking Status: Unknown if ever smoked alcohol intake: never substance use type: denies use current occupational status: retired Travel in the last 8 weeks: None
== END | disposition home or self-care (01) ==
PROVIDERS: PCP Family Medicine; Visit Provider Nurse Practitioner Family
DX: M51.16 Intervertebral disc disorders with radiculopathy, lumbar region (principal); G89.4 Chronic pain syndrome; Z79.899 Other long term (current) drug therapy
CPT/HCPCS: 99212; G0463

== ENCOUNTER → 2022-05-16 11:07 | Outpatient (POV) | payer BC, SELFPAY ==
--- NOTE | 2022-05-16 11:43 | A.OFFVIS_ITS ---
[facility] Pain Management SOAP Note Subjective:: Patient is a pleasant 66-year-old female who presents today for medication refill and follow-up. We are currently treating the patient for degenerative disc disease of lumbar spine with lumbar radiculopathy symptoms, chronic pain syndrome. Today she rates her pain a 4 out of 10. Patient denies any new trauma or injury. Patient denies any change location or type of pain she experiences. Previously the patient had been under the weather with flu and strep however today she states she is fully recovered. Patient is currently managed with [place] 10 mg 4 times a day and gabapentin 100 mg 3 times a day. Patient denies any side effects from this medication. She states this medication does adequately help manage her pain symptoms. She is requesting refills at today's visit. Her Osbaldo is [id number]. Its been reviewed and appropriate. Review of Systems: General: No recent weight changes, no fever, no sleep disturbances Respiratory: No cough, no shortness of air, no recurring pulmonary infections Cardiovascular/peripheral vascular: No chest pain, no palpitations, no edema, no shortness of breath Gastrointestinal: No new onset incontinence, normal bowel movements reported Genitourinary: No new onset incontinence Musculoskeletal: Low back pain Psychiatric: [Normal mood/affect] Neurological: [Denies weakness in extremities], [denies balance issues] Objective:: Physical Exam: General: Alert and oriented x3, no acute distress, pleasant and cooperative Lungs: Respirations even and unlabored, symmetrical chest expansion Eyes: PERRL Musculoskeletal: Flexion and extension of lumbar [spine] somewhat guarded secondary to pain, [antalgic gait noted] Neurological: Speech clear, no gross sensory deficit ORT score updated with low risk of 1 Assessment:: Degenerative disc disease of lumbar spine with lumbar radiculopathy symptoms, chronic pain syndrome Plan:: Patient continues to experience significant pain in her low back with radiating symptoms however she is doing well with her current medication regimen. I will refill the patient's [place] 10 mg 4 times a day and gabapentin 100 mg 3 times a day and provide a 1 month supply of this medication. Patient will return to clinic in 1 month for reevaluation of symptoms, medication refill and follow-up. Patient has been advised of risks of oversedation with the prescribed medication. Narcan has been offered to the patient in the event of oversedation. Patient has been advised that a family member should also be educated regarding administration of Narcan. Patient has been instructed to contact the clinic with any concerns before the next appointment. Dr. Beth has reviewed this note and agrees with this plan of care. This note was dictated using voice recognition software and make contain errors or omissions. [facility] Disclaimer: The information contained in this section may have been updated after the patient was seen, as this information can be updated by other users. Social History (Updated 01/10/22 @ 09:46 by Natty Beck APRN) Smoking Status: Unknown if ever smoked alcohol intake: never substance use type: denies use current occupational status: retired Travel in the last 8 weeks: None
[2022-05-16 12:37] VITALS: BP 188/92; PULSE 65; RESP 18; O2SAT 98; BMI 38.6
== END | disposition home or self-care (01) ==
PROVIDERS: PCP Family Medicine; Visit Provider Nurse Practitioner Family
DX: M51.16 Intervertebral disc disorders with radiculopathy, lumbar region (principal); G89.4 Chronic pain syndrome
CPT/HCPCS: 99212; G0463

== ENCOUNTER → 2022-05-16 11:53 | Outpatient (CLI) | payer BC, SELFPAY ==
[2022-05-16 13:56] LABS: Amphetamine/Metha Screen,Urine Negative ng/ml (<1000)
[2022-05-16 13:57] LABS: Barbiturates Screen,Urine Negative ng/ml (<200); Benzodiazepines Screen,Urine Negative ng/ml (<200)
[2022-05-16 13:58] LABS: Cannabinoid Screen,Urine Negative ng/ml (<50)
[2022-05-16 13:59] LABS: Cocaine Screen,Urine Negative ng/ml (<300)
[2022-05-16 14:00] LABS: Methadone Screen,Urine Negative ng/ml (<300)
[2022-05-16 14:01] LABS: Opiate Screen,Urine Positive ng/ml (<300); Phencyclidine Screen,Urine Negative ng/ml (<25)
[2022-05-20 08:10] LABS: Codeine Negative (Cutoff=100); Hydrocodone Positive (.); Hydromorphone Positive (.); Morphine Negative (Cutoff=100); Opiates Positive (.)
== END ==
PROVIDERS: PCP Family Medicine; Visit Provider Nurse Practitioner Family
DX: Z79.891 Long term (current) use of opiate analgesic (principal)
CPT/HCPCS: 80305; 80361; 80365; G0480

== ENCOUNTER → 2022-06-12 09:00 | Outpatient (POV) | payer BC, SELFPAY ==
--- NOTE | 2022-06-12 09:31 | EXP.PAIN.SOA ---
[facility] Pain Management SOAP Note Subjective:: Patient is a pleasant 66-year-old female who presents today for medication refill and follow-up. We are currently treating the patient for degenerative disc disease of lumbar spine with lumbar radiculopathy symptoms, chronic pain. Today she rates her pain a 3 out of 10. Patient denies any new trauma or injury. Patient denies any change location or type of pain she experiences. Patient is currently managed with [place] 10 mg 4 times a day and gabapentin 100 mg 3 times a day. Patient denies any side effects from this medication. She states this medication does help manage her pain symptoms. Her Osbaldo is [id number]. Its been reviewed and appropriate. Review of Systems: General: No recent weight changes, no fever, no sleep disturbances Respiratory: No cough, no shortness of air, no recurring pulmonary infections Cardiovascular/peripheral vascular: No chest pain, no palpitations, no edema, no shortness of breath Gastrointestinal: No new onset incontinence, normal bowel movements reported Genitourinary: No new onset incontinence Musculoskeletal: Low back pain Psychiatric: [Normal mood/affect] Neurological: [Denies weakness in extremities], [denies balance issues] Objective:: Physical Exam: General: Alert and oriented x3, no acute distress, pleasant and cooperative Lungs: Respirations even and unlabored, symmetrical chest expansion Eyes: PERRL Musculoskeletal: Flexion and extension of lumbar [spine] somewhat guarded secondary to pain, [antalgic gait noted] Neurological: Speech clear, no gross sensory deficit ORT score updated with low risk Assessment:: Degenerative disc disease of lumbar spine with lumbar radiculopathy symptoms, chronic pain Plan:: Patient continues to experience significant pain in her low back however she is doing well with her current medication regimen. I will refill her gabapentin 100 mg 3 times a day and [place] 10 mg 4 times a day and provide a 1 month supply of this medication. Patient will return to clinic in 1 month for reevaluation of symptoms, medication refill and follow-up. Patient has been advised of risks of oversedation with the prescribed medication. Narcan has been offered to the patient in the event of oversedation. Patient has been advised that a family member should also be educated regarding administration of Narcan. Patient has been instructed to contact the clinic with any concerns before the next appointment. Dr. Beth has reviewed this note and agrees with this plan of care. This note was dictated using voice recognition software and make contain errors or omissions. [facility] Disclaimer: The information contained in this section may have been updated after the patient was seen, as this information can be updated by other users. Social History (Updated 01/10/22 @ 09:46 by Natty Beck APRN) Smoking Status: Unknown if ever smoked alcohol intake: never substance use type: denies use current occupational status: retired Travel in the last 8 weeks: None
[2022-06-12 09:37] VITALS: BP 162/71; PULSE 72; RESP 18; O2SAT 97; BMI 36.8
== END | disposition home or self-care (01) ==
PROVIDERS: PCP Family Medicine; Visit Provider Nurse Practitioner Family
DX: M51.16 Intervertebral disc disorders with radiculopathy, lumbar region (principal); G89.29 Other chronic pain
CPT/HCPCS: 99212; G0463

== ENCOUNTER → 2022-07-11 08:36 | Outpatient (POV) | payer BC, SELFPAY ==
[2022-07-11 08:44] VITALS: BP 159/86; PULSE 74; RESP 18; O2SAT 98; BMI 36.6
--- NOTE | 2022-07-11 09:03 | A.OFFVIS_ITS ---
[facility] Pain Management SOAP Note Subjective:: Patient is a pleasant 66-year-old female who presents today for medication refill and follow-up. We are currently treating the patient for degenerative disc disease of lumbar spine with lumbar radiculopathy symptoms, chronic pain. Today she rates her pain a 3 out of 10. Patient denies any new trauma or injury. Patient denies any change to the location or type of pain she experiences. She states she continues to have low back pain with leg pain. She does describe this as an aching, throbbing sensation that is worse with increased activity. She is currently managed with [place] 10 mg 4 times a day and gabapentin 100 mg 3 times a day. Patient denies any side effects from these medications. She states these medications do help manage her pain symptoms. She is requesting refills at today's visit. Her Osbaldo is [id number]. Its been reviewed and appropriate. Review of Systems: General: No recent weight changes, no fever, no sleep disturbances Respiratory: No cough, no shortness of air, no recurring pulmonary infections Cardiovascular/peripheral vascular: No chest pain, no palpitations, no edema, no shortness of breath Gastrointestinal: No new onset incontinence, normal bowel movements reported Genitourinary: No new onset incontinence Musculoskeletal: Low back pain Psychiatric: [Normal mood/affect] Neurological: [Denies weakness in extremities], [denies balance issues] Objective:: Physical Exam: General: Alert and oriented x3, no acute distress, pleasant and cooperative Lungs: Respirations even and unlabored, symmetrical chest expansion Eyes: PERRL Musculoskeletal: Flexion and extension of lumbar [spine] somewhat guarded secondary to pain, [antalgic gait noted] Neurological: Speech clear, no gross sensory deficit Assessment:: Degenerative disc disease of lumbar spine with lumbar radiculopathy symptoms, chronic pain Plan:: Patient continues to experience significant pain in her low back and legs however she is doing well with her current medication regimen. I will refill her gabapentin 100 mg 3 times a day and [place] 10 mg 4 times a day and provide a 1 month supply of this medication. Patient will return to clinic in 1 month for reevaluation of symptoms, medication refill and follow-up. Patient has been advised of risks of oversedation with the prescribed medication. Narcan has been offered to the patient in the event of oversedation. Patient has been advised that a family member should also be educated regarding administration of Narcan. Patient has been instructed to contact the clinic with any concerns before the next appointment. Dr. Beth has reviewed this note and agrees with this plan of care. This note was dictated using voice recognition software and make contain errors or omissions. [facility] Disclaimer: The information contained in this section may have been updated after the patient was seen, as this information can be updated by other users. Social History (Updated 01/10/22 @ 09:46 by Natty Beck APRN) Smoking Status: Unknown if ever smoked alcohol intake: never substance use type: denies use current occupational status: retired Travel in the last 8 weeks: None
== END | disposition home or self-care (01) ==
PROVIDERS: PCP Family Medicine; Visit Provider Nurse Practitioner Family
DX: M51.16 Intervertebral disc disorders with radiculopathy, lumbar region (principal); G89.29 Other chronic pain
CPT/HCPCS: 99212; G0463

== ENCOUNTER → 2022-08-12 08:22 | Outpatient (POV) | payer BC, SELFPAY ==
--- NOTE | 2022-08-12 08:38 | EXP.PAIN.SOA ---
[facility] Pain Management SOAP Note Subjective:: Patient is a pleasant 66-year-old female who presents today for medication refill and follow-up. We are currently treating the patient for degenerative disc disease of lumbar spine with lumbar radiculopathy symptoms, chronic pain. Today she rates her pain a 3 out of 10. Patient denies any new trauma or injury. She is currently managed with [place] 10 mg 4 times a day and gabapentin 100 mg 3 times a day. Patient denies any side effects from these medications. She is requesting refills at today's visit. Her Osbaldo is [id number]. Its been reviewed and appropriate. Review of Systems: General: No recent weight changes, no fever, no sleep disturbances Respiratory: No cough, no shortness of air, no recurring pulmonary infections Cardiovascular/peripheral vascular: No chest pain, no palpitations, no edema, no shortness of breath Gastrointestinal: No new onset incontinence, normal bowel movements reported Genitourinary: No new onset incontinence Musculoskeletal: Low back pain Psychiatric: [Normal mood/affect] Neurological: [Denies weakness in extremities], [denies balance issues] Objective:: Physical Exam: General: Alert and oriented x3, no acute distress, pleasant and cooperative Lungs: Respirations even and unlabored, symmetrical chest expansion Eyes: PERRL Musculoskeletal: Flexion and extension of lumbar [spine] somewhat guarded secondary to pain, [antalgic gait noted] Neurological: Speech clear, no gross sensory deficit Assessment:: Degenerative disc disease of lumbar spine with lumbar radiculopathy symptoms, chronic pain Plan:: Patient is doing well on her current medication regimen. I will refill her gabapentin 100 mg 3 times a day and [place] 10 mg 4 times a day and provide a 1 month supply of this medication. Patient will return to clinic in 1 month for reevaluation of symptoms and medication refill. Patient has been advised of risks of oversedation with the prescribed medication. Narcan has been offered to the patient in the event of oversedation. Patient has been advised that a family member should also be educated regarding administration of Narcan. Patient has been instructed to contact the clinic with any concerns before the next appointment. Dr. Beth has reviewed this note and agrees with this plan of care. This note was dictated using voice recognition software and make contain errors or omissions. [facility] Disclaimer: The information contained in this section may have been updated after the patient was seen, as this information can be updated by other users. Social History (Updated 01/10/22 @ 09:46 by Natty Beck APRN) Smoking Status: Unknown if ever smoked alcohol intake: never substance use type: denies use current occupational status: retired Travel in the last 8 weeks: None
[2022-08-12 08:39] VITALS: BP 186/93; PULSE 64; RESP 18; O2SAT 98; BMI 37.8
== END | disposition home or self-care (01) ==
PROVIDERS: PCP Family Medicine; Visit Provider Nurse Practitioner Family
DX: M51.16 Intervertebral disc disorders with radiculopathy, lumbar region (principal); G89.29 Other chronic pain
CPT/HCPCS: 99212; G0463

== ENCOUNTER → 2022-09-09 08:31 | Outpatient (POV) | payer BC, SELFPAY ==
[2022-09-09 08:33] VITALS: BP 168/78; PULSE 67; RESP 18; O2SAT 97; BMI 37.8
--- NOTE | 2022-09-09 08:43 | EXP.PAIN.SOA ---
[facility] Pain Management SOAP Note Subjective:: Patient is a pleasant 66-year-old female who presents today for medication refill and follow-up. We are currently treating the patient for degenerative disc disease of lumbar spine with lumbar radiculopathy symptoms, chronic pain. Today she rates her pain a 4 out of 10. Patient denies any changes from her last visit. She is currently managed with [place] 10 mg 4 times a day and gabapentin 100 mg 3 times a day. Patient denies any side effects from these medications. Her Osbaldo is [id number]. Its been reviewed and appropriate. Review of Systems: General: No recent weight changes, no fever, no sleep disturbances Respiratory: No cough, no shortness of air, no recurring pulmonary infections Cardiovascular/peripheral vascular: No chest pain, no palpitations, no edema, no shortness of breath Gastrointestinal: No new onset incontinence, normal bowel movements reported Genitourinary: No new onset incontinence Musculoskeletal: Low back pain Psychiatric: [Normal mood/affect] Neurological: [Denies weakness in extremities], [denies balance issues] Objective:: Physical Exam: General: Alert and oriented x3, no acute distress, pleasant and cooperative Lungs: Respirations even and unlabored, symmetrical chest expansion Eyes: PERRL Musculoskeletal: Flexion and extension of lumbar [spine] somewhat guarded secondary to pain, [antalgic gait noted] Neurological: Speech clear, no gross sensory deficit Assessment:: Degenerative disc disease of lumbar spine with lumbar radiculopathy symptoms, chronic pain Plan:: She is doing well with her current medication regimen. I will refill her [place] 10 mg 4 times a day and gabapentin 100 mg 3 times a day and provide a 1 month supply of this medication. Patient will return to clinic in 1 month for reevaluation of symptoms and medication refill. Patient has been advised of risks of oversedation with the prescribed medication. Narcan has been offered to the patient in the event of oversedation. Patient has been advised that a family member should also be educated regarding administration of Narcan. Patient has been instructed to contact the clinic with any concerns before the next appointment. Dr. Beth has reviewed this note and agrees with this plan of care. This note was dictated using voice recognition software and make contain errors or omissions. [facility] Disclaimer: The information contained in this section may have been updated after the patient was seen, as this information can be updated by other users. Social History (Updated 01/10/22 @ 09:46 by Natty Beck APRN) Smoking Status: Unknown if ever smoked alcohol intake: never substance use type: denies use current occupational status: retired Travel in the last 8 weeks: None
[2022-09-09 09:32] LABS: Phencyclidine Screen,Urine Negative ng/ml (<25)
[2022-09-09 09:34] LABS: Opiate Screen,Urine Positive ng/ml (<300)
[2022-09-09 09:48] LABS: Amphetamine/Metha Screen,Urine Negative ng/ml (<1000)
[2022-09-09 09:49] LABS: Barbiturates Screen,Urine Negative ng/ml (<200); Benzodiazepines Screen,Urine Negative ng/ml (<200)
[2022-09-09 09:50] LABS: Cannabinoid Screen,Urine Negative ng/ml (<50)
[2022-09-09 09:51] LABS: Cocaine Screen,Urine Negative ng/ml (<300); Methadone Screen,Urine Negative ng/ml (<300)
[2022-09-15 15:07] LABS: Codeine Negative (Cutoff=100); Hydrocodone Positive (.); Hydromorphone Positive (.); Morphine Negative (Cutoff=100); Opiates Positive (.)
== END | disposition home or self-care (01) ==
PROVIDERS: PCP Family Medicine; Visit Provider Nurse Practitioner Family
DX: M51.16 Intervertebral disc disorders with radiculopathy, lumbar region (principal); G89.29 Other chronic pain
CPT/HCPCS: 80305; 80361; 80365; 99212; G0463; G0480

== ENCOUNTER → 2022-10-04 08:22 | Outpatient (POV) | payer BC, SELFPAY ==
[2022-10-04 08:46] VITALS: BP 182/78; PULSE 71; RESP 18; O2SAT 97; BMI 36.0
--- NOTE | 2022-10-04 10:06 | A.OFFVIS_ITS ---
[facility] Pain Management SOAP Note Subjective:: This patient is a very pleasant 66-year-old female that comes our clinic today for med refill. Patient is being managed currently with [place] 10 mg 4 times daily. Gabapentin 100 mg 3 times daily. Patient does not complain of any side effects or complications with the current medications. Her Osbaldo #[id number] is been reviewed and appropriate. Patient describes her overall pain is low lumbar with bilateral hip and leg radicular symptoms. She rates her pain 3/10 today. Objective:: Patient is awake alert [place] x3. No acute distress. Flexion-extension lumbar spine somewhat guarded secondary to pain. Deep tendon reflexes upper lower e xtremities normal. Motor strength upper and lower extremities normal. There is no gross sensory deficit. Gait is normal. Assessment:: Degenerative disc disease lumbar spine multilevels lumbar radiculopathy Plan:: I will refill the patient's pain medication. [place] 10 mg 1 p.o. 4 times daily. GabapentiN 100 mg 1 p.o. 3 times daily. She will return to see us in [address] [facility] Disclaimer: The information contained in this section may have been updated after the patient was seen, as this information can be updated by other users. Social History (Updated 01/10/22 @ 09:46 by Natty Beck APRN) Smoking Status: Unknown if ever smoked alcohol intake: never substance use type: denies use current occupational status: retired Travel in the last 8 weeks: None
--- NOTE | 2022-10-04 10:13 | A.OFFVIS_ITS ---
[facility] Disclaimer: The information contained in this section may have been updated after the patient was seen, as this information can be updated by other users. Social History (Updated 01/10/22 @ 09:46 by Natty Beck APRN) Smoking Status: Unknown if ever smoked alcohol intake: never substance use type: denies use current occupational status: retired Travel in the last 8 weeks: None
== END | disposition home or self-care (01) ==
PROVIDERS: PCP Family Medicine; Visit Provider Nurse Anesthetist, Certified Registered
DX: M51.16 Intervertebral disc disorders with radiculopathy, lumbar region (principal)
CPT/HCPCS: 99212; G0463

== ENCOUNTER → 2022-11-04 08:17 | Outpatient (POV) | payer BC, SELFPAY ==
[2022-11-04 08:34] VITALS: BP 182/83; PULSE 73; RESP 18; O2SAT 97; BMI 37.8
--- NOTE | 2022-11-04 08:44 | A.OFFVIS_ITS ---
[facility] Pain Management SOAP Note Subjective:: Patient is a pleasant 66-year-old female who presents today for 1 month follow- up and medication refill. We are currently treating the patient for degenerative disc disease of lumbar spine with lumbar radiculopathy symptoms. Today she rates her pain a 3 out of 10. Patient denies any new trauma or injury. She is currently managed with [place] 10 mg 4 times a day and gabapentin 100 mg 3 times a day. Patient denies any side effects from these medications. Her Osbaldo is [id number]. Its been reviewed and appropriate. Review of Systems: General: No recent weight changes, no fever, no sleep disturbances Respiratory: No cough, no shortness of air, no recurring pulmonary infections Cardiovascular/peripheral vascular: No chest pain, no palpitations, no edema, no shortness of breath Gastrointestinal: No new onset incontinence, normal bowel movements reported Genitourinary: No new onset incontinence Musculoskeletal: Low back pain Psychiatric: [Normal mood/affect] Neurological: [Denies weakness in extremities], [denies balance issues] Objective:: Physical Exam: General: Alert and oriented x3, no acute distress, pleasant and cooperative Lungs: Respirations even and unlabored, symmetrical chest expansion Eyes: PERRL Musculoskeletal: Flexion and extension of lumbar [spine] somewhat guarded secondary to pain, [antalgic gait noted] Neurological: Speech clear, no gross sensory deficit Assessment:: Degenerative disc disease of lumbar spine with lumbar radiculopathy symptoms Plan:: We will refill her gabapentin 100 mg 3 times a day and [place] 10 mg 4 times a day and provided 1 month supply of this medication. Patient will return to clinic in 1 month for reevaluation of symptoms and medication refill. Patient has been advised of risks of oversedation with the prescribed medication. Narcan has been offered to the patient in the event of oversedation. Patient has been advised that a family member should also be educated regarding administration of Narcan. Patient has been instructed to contact the clinic with any concerns before the next appointment. Dr. Beth has reviewed this note and agrees with this plan of care. This note was dictated using voice recognition software and make contain errors or omissions. [facility] Disclaimer: The information contained in this section may have been updated after the patient was seen, as this information can be updated by other users. Social History (Updated 01/10/22 @ 09:46 by Natty Beck, SEASONAL CLERK) Smoking Status: Unknown if ever smoked alcohol intake: never substance use type: denies use current occupational status: retired Travel in the last 8 weeks: None
== END | disposition home or self-care (01) ==
PROVIDERS: PCP Family Medicine; Visit Provider Nurse Practitioner Family
DX: M51.16 Intervertebral disc disorders with radiculopathy, lumbar region (principal)
CPT/HCPCS: 99212; G0463

== ENCOUNTER → 2022-12-05 08:21 | Outpatient (POV) | payer MEDICARE, BC, SELFPAY ==
[2022-12-05 08:33] VITALS: BP 189/90; PULSE 75; RESP 20; BMI 37.8
--- NOTE | 2022-12-05 08:54 | A.OFFVIS_ITS ---
[facility] Pain Management SOAP Note Subjective:: Patient is a pleasant 67-year-old female who presents today for medication refill and follow-up. We are currently treating the patient for degenerative disc disease of lumbar spine with lumbar radiculopathy symptoms. Today she does rate her pain a 3 out of 10. Patient denies any new trauma or injury. She denies any change to location or type of pain she experiences. She does state that her back pain continues to be an issue and that she is requesting a back brace if possible. Patient is currently managed with Ern[place] 10 mg 4 times a day and gabapentin 100 mg 3 times a day. She denies any side effects from this medication. Her Osbaldo is [id number]. Its been reviewed and appropriate. Review of Systems: General: No recent weight changes, no fever, no sleep disturbances Respiratory: No cough, no shortness of air, no recurring pulmonary infections Cardiovascular/peripheral vascular: No chest pain, no palpitations, no edema, no shortness of breath Gastrointestinal: No new onset incontinence, normal bowel movements reported Genitourinary: No new onset incontinence Musculoskeletal: Low back pain Psychiatric: [Normal mood/affect] Neurological: [Denies weakness in extremities], [denies balance issues] Objective:: Physical Exam: General: Alert and oriented x3, no acute distress, pleasant and cooperative Lungs: Respirations even and unlabored, symmetrical chest expansion Eyes: PERRL Musculoskeletal: Flexion and extension of lumbar [spine] somewhat guarded secondary to pain, [antalgic gait noted] Neurological: Speech clear, no gross sensory deficit Assessment:: Degenerative disc disease of lumbar spine with lumbar radiculopathy symptoms Plan:: Patient was ordered a back brace that was applied during today's visit and she w as instructed on use. I will refill the patient's Ern[place] 10 mg 4 times a day and gabapentin 100 mg 3 times a day and provide a 1 month supply of this medication. Patient will return to clinic in 1 month for reevaluation of symptoms, medication refill and follow-up. Patient has been advised of risks of oversedation with the prescribed medication. Narcan has been offered to the patient in the event of oversedation. Patient has been advised that a family member should also be educated regarding administration of Narcan. Patient has been instructed to contact the clinic with any concerns before the next appointment. Dr. Beth has reviewed this note and agrees with this plan of care. This note was dictated using voice recognition software and make contain errors or omissions. [facility] Disclaimer: The information contained in this section may have been updated after the patient was seen, as this information can be updated by other users. Social History (Updated 01/10/22 @ 09:46 by Natty Beck APRN) Smoking Status: Unknown if ever smoked alcohol intake: never substance use type: denies use current occupational status: other Travel in the last 8 weeks: None
== END | disposition home or self-care (01) ==
PROVIDERS: PCP Family Medicine; Visit Provider Nurse Practitioner Family
DX: M51.16 Intervertebral disc disorders with radiculopathy, lumbar region (principal)
CPT/HCPCS: 99212; G0463

== ENCOUNTER → 2023-01-06 08:23 | Outpatient (POV) | payer MEDICARE, BC, SELFPAY ==
[2023-01-06 08:36] VITALS: BP 147/79; PULSE 72; RESP 18; O2SAT 97; BMI 37.3
--- NOTE | 2023-01-06 08:51 | A.OFFVIS_ITS ---
[facility] Pain Management SOAP Note Subjective:: Patient is a pleasant 67-year-old female who presents today for medication refill and follow-up. We are currently treating the patient for degenerative disc disease of lumbar spine with lumbar radiculopathy symptoms. Today she rates her pain a 3 out of 10. Patient denies any new trauma or injury. She denies any change location or type of pain she experiences. Patient is currently managed with [place] 10 mg 4 times a day and gabapentin 100 mg 3 times a day. Patient denies any side effects from this medication. Her Osbaldo has been reviewed and is appropriate. Review of Systems: General: No recent weight changes, no fever, no sleep disturbances Respiratory: No cough, no shortness of air, no recurring pulmonary infections Cardiovascular/peripheral vascular: No chest pain, no palpitations, no edema, no shortness of breath Gastrointestinal: No new onset incontinence, normal bowel movements reported Genitourinary: No new onset incontinence Musculoskeletal: Low back pain Psychiatric: [Normal mood/affect] Neurological: [Denies weakness in extremities], [denies balance issues] Objective:: Physical Exam: General: Alert and oriented x3, no acute distress, pleasant and cooperative Lungs: Respirations even and unlabored, symmetrical chest expansion Eyes: PERRL Musculoskeletal: Flexion and extension of lumbar [spine] somewhat guarded secondary to pain, [antalgic gait noted] Neurological: Speech clear, no gross sensory deficit Assessment:: Degenerative disc disease of lumbar spine with lumbar radiculopathy symptoms Plan:: Patient continues to do well with her current medication regimen. I will refill her [place] 10 mg 4 times a day and gabapentin 100 mg 3 times a day and provide a 1 month supply of this medication. Patient will return to clinic in 1 month for reevaluation of symptoms and plan of care. Patient has been advised of risks of oversedation with the prescribed medication. Narcan has been offered to the patient in the event of oversedation. Patient has been advised that a family member should also be educated regarding administration of Narcan. Patient has been instructed to contact the clinic with any concerns before the next appointment. Dr. Beth has reviewed this note and agrees with this plan of care. This note was dictated using voice recognition software and make contain errors or omissions. [facility] Disclaimer: The information contained in this section may have been updated after the pat ient was seen, as this information can be updated by other users. Social History (Updated 01/10/22 @ 09:46 by Natty Beck APRN) Smoking Status: Unknown if ever smoked alcohol intake: never substance use type: denies use current occupational status: other Travel in the last 8 weeks: None
== END | disposition home or self-care (01) ==
PROVIDERS: PCP Family Medicine; Visit Provider Nurse Practitioner Family
DX: M51.16 Intervertebral disc disorders with radiculopathy, lumbar region (principal)
CPT/HCPCS: 99212; G0463

== ENCOUNTER → 2023-02-03 08:16 | Outpatient (POV) | payer MEDICARE, BC, SELFPAY ==
[2023-02-03 08:36] VITALS: BP 175/72; PULSE 69; RESP 18; O2SAT 96; BMI 36.6
--- NOTE | 2023-02-03 08:45 | A.OFFVIS_ITS ---
[facility] Pain Management SOAP Note Subjective:: Patient is a pleasant 67-year-old female who presents today for 1 month follow- up and medication refill. We are currently treating the patient for degenerative disc disease of lumbar spine with lumbar radiculopathy symptoms. Today she rates her pain a 3 out of 10. Patient denies any new trauma or injury. She is currently prescribed [place] 10 mg 4 times a day and gabapentin 100 mg 3 times a day. Patient denies any side effects from this medication. Her Osbaldo is [id number]. Its been reviewed and appropriate. Review of Systems: General: No recent weight changes, no fever, no sleep disturbances Respiratory: No cough, no shortness of air, no recurring pulmonary infections Cardiovascular/peripheral vascular: No chest pain, no palpitations, no edema, no shortness of breath Gastrointestinal: No new onset incontinence, normal bowel movements reported Genitourinary: No new onset incontinence Musculoskeletal: Low back pain Psychiatric: [Normal mood/affect] Neurological: [Denies weakness in extremities], [denies balance issues] Objective:: Physical Exam: General: Alert and oriented x3, no acute distress, pleasant and cooperative Lungs: Respirations even and unlabored, symmetrical chest expansion Eyes: PERRL Musculoskeletal: Flexion and extension of lumbar [spine] somewhat guarded secondary to pain, [antalgic gait noted] Neurological: Speech clear, no gross sensory deficit Assessment:: Degenerative disc disease of lumbar spine with lumbar radiculopathy symptoms Plan:: We will refill the patient's [place] 10 mg 4 times a day and gabapentin 100 mg 3 times a day and provide 1 month supply of this medication. Patient will return to clinic in 1 month for reevaluation of symptoms and plan of care. Patient has been advised of risks of oversedation with the prescribed medication. Narcan has been offered to the patient in the event of oversedation. Patient has been advised that a family member should also be educated regarding administration of Narcan. Patient has been instructed to contact the clinic with any concerns before the next appointment. Dr. Beth has reviewed this note and agrees with this plan of care. This note was dictated using voice recognition software and make contain errors or omissions. [facility] Disclaimer: The information contained in this section may have been updated after the patient was seen, as this information can be updated by other users. Social History (Updated 01/10/22 @ 09:46 by Natty Beck APRN) Smoking Status: Unknown if ever smoked alcohol intake: never substance use type: denies use current occupational status: other Travel in the last 8 weeks: None
== END | disposition home or self-care (01) ==
PROVIDERS: PCP Family Medicine; Visit Provider Nurse Practitioner Family
DX: M51.16 Intervertebral disc disorders with radiculopathy, lumbar region (principal)
CPT/HCPCS: 99212; G0463

== ENCOUNTER → 2023-03-06 08:32 | Outpatient (POV) | payer MEDICARE, BC, SELFPAY ==
--- NOTE | 2023-03-06 08:37 | EXP.PAIN.SOA ---
[facility] Pain Management SOAP Note Subjective:: Patient is a pleasant 67-year-old female who presents today for medication refill. We are currently treating the patient for degenerative disc disease of lumbar spine with lumbar radiculopathy symptoms. Today she rates her pain a 3 out of 10. She denies any changes from her last visit or any new injuries. She is currently prescribed [place] 10 mg 4 times a day and gabapentin 100 mg 3 times a day. Patient denies any side effects from this medication. Her Osbaldo has been reviewed and appropriate. Review of Systems: General: No recent weight changes, no fever, no sleep disturbances Respiratory: No cough, no shortness of air, no recurring pulmonary infections Cardiovascular/peripheral vascular: No chest pain, no palpitations, no edema, no shortness of breath Gastrointestinal: No new onset incontinence, normal bowel movements reported Genitourinary: No new onset incontinence Musculoskeletal: Low back pain Psychiatric: [Normal mood/affect] Neurological: [Denies weakness in extremities], [denies balance issues] Objective:: Physical Exam: General: Alert and oriented x3, no acute distress, pleasant and cooperative Lungs: Respirations even and unlabored, symmetrical chest expansion Eyes: PERRL Musculoskeletal: Flexion and extension of lumbar [spine] somewhat guarded secondary to pain, [antalgic gait noted] Neurological: Speech clear, no gross sensory deficit Assessment:: Degenerative disc disease of lumbar spine with lumbar radiculopathy symptoms Plan:: I will refill the patient's [place] 10 mg 4 times a day and gabapentin 100 mg 3 times a day and provide a 1 month supply of this medication. Patient will return to clinic in 1 month for reevaluation of symptoms and plan of care. Patient has been advised of risks of oversedation with the prescribed medication. Narcan has been offered to the patient in the event of oversedation. Patient has been advised that a family member should also be educated regarding administration of Narcan. Patient has been instructed to contact the clinic with any concerns before the next appointment. Dr. Beth has reviewed this note and agrees with this plan of care. This note was dictated using voice recognition software and make contain errors or omissions. [facility] Disclaimer: The information contained in this section may have been updated after the patient was seen, as this information can be updated by other users. Social History (Updated 01/10/22 @ 09:46 by Natty Beck APRN) Smoking Status: Unknown if ever smoked alcohol intake: never substance use type: denies use current occupational status: other Travel in the last 8 weeks: None
[2023-03-06 08:43] VITALS: BP 183/86; PULSE 80; RESP 18; O2SAT 97; BMI 37.8
== END | disposition home or self-care (01) ==
PROVIDERS: PCP Family Medicine; Visit Provider Nurse Practitioner Family
DX: M51.16 Intervertebral disc disorders with radiculopathy, lumbar region (principal)
CPT/HCPCS: 99212; G0463

== ENCOUNTER → 2023-03-06 08:44 | Outpatient (CLI) | payer MEDICARE, BC, SELFPAY ==
[2023-03-06 11:34] LABS: Barbiturates Screen,Urine Negative ng/ml (<200)
[2023-03-06 11:35] LABS: Amphetamine/Metha Screen,Urine Negative ng/ml (<1000)
[2023-03-06 11:36] LABS: Benzodiazepines Screen,Urine Negative ng/ml (<200); Cannabinoid Screen,Urine Negative ng/ml (<50)
[2023-03-06 11:37] LABS: Cocaine Screen,Urine Negative ng/ml (<300)
[2023-03-06 11:38] LABS: Methadone Screen,Urine Negative ng/ml (<300); Opiate Screen,Urine Positive ng/ml (<300)
[2023-03-06 11:39] LABS: Phencyclidine Screen,Urine Negative ng/ml (<25)
== END ==
PROVIDERS: Nurse Practitioner Family; PCP Family Medicine; Visit Provider Anesthesiology
DX: Z79.891 Long term (current) use of opiate analgesic (principal)
CPT/HCPCS: 80305; 99212; G0463

== ENCOUNTER → 2023-04-02 08:07 | Outpatient (POV) | payer MEDICARE, BC, SELFPAY ==
[2023-04-02 08:17] VITALS: BP 159/65; PULSE 73; RESP 18; O2SAT 95; BMI 38.6
--- NOTE | 2023-04-02 08:38 | EXP.PAIN.SOA ---
[facility] Pain Management SOAP Note Subjective:: Patient is a pleasant 67-year-old female who presents today for 1 month follow-up and medication refill. We are currently treating the patient for degenerative disc disease of lumbar spine with lumbar radiculopathy symptoms. Today she rates her pain a 3 out of 10. Patient denies any new injury or trauma. She does state since our last visit she did have a colonoscopy which did cause worsening symptoms of her uterine and bladder prolapse. She states she is scheduled to go see a specialist coming up for possible intervention. Patient does state that she has more pain and pressure due to this. She is currently managed with [place] 10 mg 4 times a day and gabapentin 100 mg 3 times a day. She denies any side effects from these medications. Her Osbaldo has been reviewed and is appropriate. Review of Systems: General: No recent weight changes, no fever, no sleep disturbances Respiratory: No cough, no shortness of air, no recurring pulmonary infections Cardiovascular/peripheral vascular: No chest pain, no palpitations, no edema, no shortness of breath Gastrointestinal: No new onset incontinence, normal bowel movements reported Genitourinary: No new onset incontinence Musculoskeletal: Low back pain Psychiatric: [Normal mood/affect] Neurological: [Denies weakness in extremities], [denies balance issues] Objective:: Physical Exam: General: Alert and oriented x3, no acute distress, pleasant and cooperative Lungs: Respirations even and unlabored, symmetrical chest expansion Eyes: PERRL Musculoskeletal: Flexion and extension of lumbar [spine] somewhat guarded secondary to pain, [antalgic gait noted] Neurological: Speech clear, no gross sensory deficit Assessment:: Degenerative disc disease of lumbar spine with lumbar radiculopathy symptoms Plan:: Patient continues to do well with her current medication regimen. I will refill her [place] 10 mg 4 times a day and gabapentin 100 mg 3 times a day and provide 1 month supply of this medication. I have discussed with the patient that she may benefit from a pessary device for her prolapse symptoms. We will follow-up at future visits. Patient will return to clinic in 1 month for reevaluation of symptoms and plan of care. Patient has been advised of risks of oversedation with the prescribed medication. Narcan has been offered to the patient in the event of oversedation. Patient has been advised that a family member should also be educated regarding administration of Narcan. Patient has been instructed to contact the clinic with any concerns before the next appointment. Dr. Beth has reviewed this note and agrees with this plan of care. This note was dictated using voice recognition software and make contain errors or omissions. [facility] Disclaimer: The information contained in this section may have been updated after the patient was seen, as this information can be updated by other users. Social History (Updated 01/10/22 @ 09:46 by Natty Beck APRN) Smoking Status: Unknown if ever smoked alcohol intake: never substance use type: denies use current occupational status: employed Travel in the last 8 weeks: None
== END | disposition home or self-care (01) ==
PROVIDERS: PCP Nurse Practitioner; Visit Provider Nurse Practitioner Family
DX: M51.16 Intervertebral disc disorders with radiculopathy, lumbar region (principal)
CPT/HCPCS: 99212; G0463

== ENCOUNTER → 2023-05-01 08:13 | Outpatient (POV) | payer MEDICARE, BC, SELFPAY ==
[2023-05-01 08:24] VITALS: BP 162/80; PULSE 66; RESP 18; O2SAT 96; BMI 37.8
--- NOTE | 2023-05-01 08:38 | A.OFFVIS_ITS ---
[facility] Pain Management SOAP Note Subjective:: Patient is a pleasant 67-year-old female who presents today for medication refill. We are currently treating the patient for degenerative disc disease of lumbar spine with lumbar radiculopathy symptoms. Today she rates her pain a 3 out of 10. Patient states since her last visit she did have an episode of hives related to a new puppy. Patient states that she did breakout on her face however she did go to her primary care provider Zane Morris and they were able to get it resolved. Patient is currently managed with [place] 10 mg 4 times a day and gabapentin 100 mg 3 times a day. Patient denies any side effects from this medication. She states this does continue to provide improvement of her pain symptoms on a daily basis. Her Osbaldo reviewed and is appropriate. Review of Systems: General: No recent weight changes, no fever, no sleep disturbances Respiratory: No cough, no shortness of air, no recurring pulmonary infections Cardiovascular/peripheral vascular: No chest pain, no palpitations, no edema, no shortness of breath Gastrointestinal: No new onset incontinence, normal bowel movements reported Genitourinary: No new onset incontinence Musculoskeletal: Low back pain Psychiatric: [Normal mood/affect] Neurological: [Denies weakness in extremities], [denies balance issues] Objective:: Physical Exam: General: Alert and oriented x3, no acute distress, pleasant and cooperative Lungs: Respirations even and unlabored, symmetrical chest expansion Eyes: PERRL Musculoskeletal: Flexion and extension of lumbar [spine] somewhat guarded secondary to pain, [antalgic gait noted] Neurological: Speech clear, no gross sensory deficit Assessment:: Degenerative disc disease of lumbar spine with lumbar radiculopathy symptoms Plan:: Patient is doing well with her current medication regimen. I will refill the patient's [place] 10 mg 4 times a day and gabapentin 100 mg 3 times a day and provide a 1 month supply of this medication. Patient will return to clinic in 1 month for medication refill and reevaluation of symptoms and plan of care. Patient has been advised of risks of oversedation with the prescribed medication. Narcan has been offered to the patient in the event of oversedation. Patient has been advised that a family member should also be educated regarding administration of Narcan. Patient has been instructed to contact the clinic with any concerns before the next appointment. Dr. Beth has reviewed this note and agrees with this plan of care. This note was dictated using voice recognition software and make contain errors or omissions. [facility] Disclaimer: The information contained in this section may have been updated after the patient was seen, as this information can be updated by other users. Social History (Updated 01/10/22 @ 09:46 by Natty Beck APRN) Smoking Status: Unknown if ever smoked alcohol intake: never substance use type: denies use current occupational status: retired Travel in the last 8 weeks: None
== END | disposition home or self-care (01) ==
PROVIDERS: PCP Nurse Practitioner; Visit Provider Nurse Practitioner Family
DX: M51.16 Intervertebral disc disorders with radiculopathy, lumbar region (principal)
CPT/HCPCS: 99212; G0463

== ENCOUNTER → 2023-05-28 08:25 | Outpatient (POV) | payer MEDICARE, BC, SELFPAY ==
[2023-05-28 08:47] VITALS: BP 175/94; PULSE 70; RESP 18; O2SAT 95; BMI 37.8
--- NOTE | 2023-05-28 09:00 | EXP.PAIN.SOA ---
[facility] Pain Management SOAP Note Subjective:: Patient is a pleasant 67-year-old female who presents today for 1 month follow-up and medication refill. We are currently treating the patient for degenerative disc disease of lumbar spine with lumbar radiculopathy symptoms. Today she rates her pain a 4 out of 10. Patient denies any new trauma or injury. Patient does state that she is going to be scheduled for upcoming surgery for her prolapsed bladder and while they are doing this procedure they are planning on taking a biopsy of her uterus due to thickening. Patient does state that she will know about the of this month what the surgery date is. Patient is currently managed with [place] 10 mg 4 times a day and gabapentin 100 mg 3 times a day. Patient denies any side effects from these medications. Her Osbaldo has been reviewed and is appropriate. Review of Systems: General: No recent weight changes, no fever, no sleep disturbances Respiratory: No cough, no shortness of air, no recurring pulmonary infections Cardiovascular/peripheral vascular: No chest pain, no palpitations, no edema, no shortness of breath Gastrointestinal: No new onset incontinence, normal bowel movements reported Genitourinary: No new onset incontinence Musculoskeletal: Low back pain Psychiatric: [Normal mood/affect] Neurological: [Denies weakness in extremities], [denies balance issues] Objective:: Physical Exam: General: Alert and oriented x3, no acute distress, pleasant and cooperative Lungs: Respirations even and unlabored, symmetrical chest expansion Eyes: PERRL Musculoskeletal: Flexion and extension of lumbar [spine] somewhat guarded secondary to pain, [antalgic gait noted] Neurological: Speech clear, no gross sensory deficit Assessment:: Degenerative disc disease of lumbar spine with lumbar radiculopathy symptoms Plan:: I will refill the patient's [place] 10 mg 4 times a day and gabapentin 100 mg 3 times a day and provide a 1 month supply of this medication. I have counseled the patient that if her surgery ends up interrupting her medication refill appointment she can call our office to let us know and that we will work around this. Patient will return to clinic in 1 month for reevaluation of symptoms and plan of care. Patient has been advised of risks of oversedation with the prescribed medication. Narcan has been offered to the patient in the event of oversedation. Patient has been advised that a family member should also be educated regarding administration of Narcan. Patient has been instructed to contact the clinic with any concerns before the next appointment. Dr. Beth has reviewed this note and agrees with this plan of care. This note was dictated using voice recognition software and make contain errors or omissions. [facility] Disclaimer: The information contained in this section may have been updated after the patient was seen, as this information can be updated by other users. Social History (Updated 01/10/22 @ 09:46 by Natty Beck APRN) Smoking Status: Unknown if ever smoked alcohol intake: never substance use type: denies use current occupational status: retired Travel in the last 8 weeks: None
== END | disposition home or self-care (01) ==
PROVIDERS: PCP Nurse Practitioner; Visit Provider Nurse Practitioner Family
DX: M51.16 Intervertebral disc disorders with radiculopathy, lumbar region (principal)
CPT/HCPCS: 99212; G0463

== ENCOUNTER → 2023-06-26 08:34 | Outpatient (POV) | payer MEDICARE, BC, SELFPAY ==
[2023-06-26 08:42] VITALS: BP 176/78; PULSE 82; RESP 18; O2SAT 98; BMI 38.6
--- NOTE | 2023-06-26 08:44 | EXP.PAIN.SOA ---
[facility] Pain Management SOAP Note Subjective:: Patient is a pleasant 67-year-old female who presents today for medication refill and follow-up. We are currently treating the patient for degenerative disc disease of lumbar spine with lumbar radiculopathy symptoms. Today she rates her pain a 3 out of 10. Patient did state that she did have her uterine biopsy yesterday and that everything came back good and noncancerous. She states that they are still planning on doing a hysterectomy at the end of August to September. Patient is currently managed with [place] 10 mg 4 times a day and gabapentin 100 mg 3 times a day. She denies any side effects from this medication. Her Osbaldo has been reviewed and is appropriate. Review of Systems: General: No recent weight changes, no fever, no sleep disturbances Respiratory: No cough, no shortness of air, no recurring pulmonary infections Cardiovascular/peripheral vascular: No chest pain, no palpitations, no edema, no shortness of breath Gastrointestinal: No new onset incontinence, normal bowel movements reported Genitourinary: No new onset incontinence Musculoskeletal: Low back pain Psychiatric: [Normal mood/affect] Neurological: [Denies weakness in extremities], [denies balance issues] Objective:: Physical Exam: General: Alert and oriented x3, no acute distress, pleasant and cooperative Lungs: Respirations even and unlabored, symmetrical chest expansion Eyes: PERRL Musculoskeletal: Flexion and extension of lumbar [spine] somewhat guarded secondary to pain, [antalgic gait noted] Neurological: Speech clear, no gross sensory deficit Assessment:: Degenerative disc disease of lumbar spine with lumbar radiculopathy symptoms Plan:: Patient continues to do well with her current medication regimen. I will refill her [place] go 10 mg 4 times a day and gabapentin 100 mg 3 times a day and provide a 1 month of these medications. Patient will return to clinic in 1 month for reevaluation of symptoms and plan of care. Risks and benefits of the medication have been explained in detail to the patient. The patient does understand the risk of dependence on the medication when given over a prolonged period. Patient has been advised of risks of oversedation with the prescribed medication. Narcan has been offered to the paitent in the event of oversedation. Patient has been advised that a family member should also be educated regarding administration of Narcan. The patient has been advised to consult with his/her primary care provider and pharmacist regarding drug-drug interaction of medications currently prescribed. Patient has been prescribed a controlled substance after being counseled on the medication, medication safety, and possible side effects. Opioid contract was reviewed and signed by the patient, and that they have agreed to all of the terms set forth by our compliance program. Patient has been instructed to contact the clinic with any concerns before the next appointment. Dr. Beth has reviewed this note and agrees with this plan of care. This note was dictated using voice recognition software and make contain errors or omissions. [facility] Disclaimer: The information contained in this section may have been updated after the patient was seen, as this information can be updated by other users. Social History (Updated 01/10/22 @ 09:46 by Natty Beck APRN) Smoking Status: Unknown if ever smoked alcohol intake: never substance use type: denies use current occupational status: retired Travel in the last 8 weeks: None
[2023-06-26 16:54] LABS: Phencyclidine Screen,Urine Negative ng/ml (<25)
[2023-06-26 17:07] LABS: Barbiturates Screen,Urine Negative ng/ml (<200); Benzodiazepines Screen,Urine Negative ng/ml (<200)
[2023-06-26 17:08] LABS: Cocaine Screen,Urine Negative ng/ml (<300)
[2023-06-26 17:09] LABS: Methadone Screen,Urine Negative ng/ml (<300)
[2023-06-26 17:10] LABS: Opiate Screen,Urine Positive ng/ml (<300)
[2023-06-26 17:12] LABS: Amphetamine/Metha Screen,Urine Negative ng/ml (<1000)
[2023-06-26 17:13] LABS: Cannabinoid Screen,Urine Negative ng/ml (<50)
== END | disposition home or self-care (01) ==
PROVIDERS: PCP Nurse Practitioner; Visit Provider Nurse Practitioner Family
DX: Z79.891 Long term (current) use of opiate analgesic (principal); M51.16 Intervertebral disc disorders with radiculopathy, lumbar region
CPT/HCPCS: 80307; 99212; G0463

== ENCOUNTER 2023-07-24 08:57 | Outpatient (POV) | payer MEDICARE, BC, SELFPAY ==
[2023-07-24 09:24] VITALS: BP 166/71; PULSE 102; RESP 18; O2SAT 99; BMI 38.4
--- NOTE | 2023-07-24 10:03 | A.OFFVIS_ITS ---
[facility] Pain Management SOAP Note Subjective:: Patient is a pleasant 67-year-old female who presents today for medication refill. Today she rates her pain at 3 out of 10. She denies any new trauma or injury. She does state that she has been given an official surgery date of September 07 for her hysterectomy. Patient denies any other new changes. She is currently managed with [place] 10 mg 4 times a day and gabapentin 100 mg 3 times a day. She denies any side effects from this medication. Her Osbaldo has been reviewed and is appropriate. Review of Systems: General: No recent weight changes, no fever, no sleep disturbances Respiratory: No cough, no shortness of air, no recurring pulmonary infections Cardiovascular/peripheral vascular: No chest pain, no palpitations, no edema, no shortness of breath Gastrointestinal: No new onset incontinence, normal bowel movements reported Genitourinary: No new onset incontinence Musculoskeletal: Low back pain Psychiatric: [Normal mood/affect] Neurological: [Denies weakness in extremities], [denies balance issues] Objective:: Physical Exam: General: Alert and oriented x3, no acute distress, pleasant and cooperative Lungs: Respirations even and unlabored, symmetrical chest expansion Eyes: PERRL Musculoskeletal: Flexion and extension of lumbar [spine] somewhat guarded secondary to pain, [antalgic gait noted] Neurological: Speech clear, no gross sensory deficit Assessment:: Degenerative disc disease of lumbar spine with lumbar radiculopathy symptoms Plan:: I will refill the patient's [place] 10 mg 4 times a day and gabapentin 100 mg 3 times a day and provide a 1 month supply of this medication. Patient will return to clinic in 1 month for reevaluation of symptoms and plan of care. Risks and benefits of the medication have been explained in detail to the patient. The patient does understand the risk of dependence on the medication when given over a prolonged period. Patient has been advised of risks of oversedation with the prescribed medication. Narcan has been offered to the paitent in the event of oversedation. Patient has been advised that a family member should also be educated regarding administration of Narcan. The patient has been advised to consult with his/her primary care provider and pharmacist regarding drug-drug interaction of medications currently prescribed. Patient has been prescribed a controlled substance after being counseled on the medication, medication safety, and possible side effects. Opioid contract was reviewed and signed by the patient, and that they have agreed to all of the terms set forth by our compliance program. Patient has been instructed to contact the clinic with any concerns before the next appointment. Dr. Beth has reviewed this note and agrees with this plan of care. This note was dictated using voice recognition software and make contain errors or omissions. [facility] Disclaimer: The information contained in this section may have been updated after the patient was seen, as this information can be updated by other users. Social History (Updated 01/10/22 @ 09:46 by Natty Beck APRN) Smoking Status: Unknown if ever smoked alcohol intake: never substance use type: denies use current occupational status: retired Travel in the last 8 weeks: None
== END 2023-07-24 23:59 | disposition home or self-care (01) ==
PROVIDERS: Visit Provider Nurse Practitioner Family
DX: M51.16 Intervertebral disc disorders with radiculopathy, lumbar region (principal)
CPT/HCPCS: 99212; G0463

== ENCOUNTER 2023-09-04 09:03 | Outpatient (POV) | payer MEDICARE, BC, SELFPAY ==
[2023-09-04 09:39] VITALS: BP 156/79; PULSE 63; RESP 18; O2SAT 98; BMI 37.8
--- NOTE | 2023-09-04 09:44 | A.OFFVIS_ITS ---
[facility] Pain Management SOAP Note Subjective:: Patient is a pleasant 67-year-old female who presents today for medication refill and 1 month follow-up. Today she rates her pain at 3 out of 10. Patient denies any new trauma or injury. She does state that her pain is still related to her back and does state that she is scheduled for her hysterectomy on Friday. Patient states that her doctor was wanting to know if we had any issues or anything that we needed to pass along regarding this. Patient is currently managed with [place] 10 mg 4 times a day and gabapentin 100 mg 3 times a day. She denies any side effects from this medication. Her Osbaldo has been reviewed and is appropriate. Review of Systems: General: No recent weight changes, no fever, no sleep disturbances Respiratory: No cough, no shortness of air, no recurring pulmonary infections Cardiovascular/peripheral vascular: No chest pain, no palpitations, no edema, no shortness of breath Gastrointestinal: No new onset incontinence, normal bowel movements reported Genitourinary: No new onset incontinence Musculoskeletal: Low back pain Psychiatric: [Normal mood/affect] Neurological: [Denies weakness in extremities], [denies balance issues] Objective:: Physical Exam: General: Alert and oriented x3, no acute distress, pleasant and cooperative Lungs: Respirations even and unlabored, symmetrical chest expansion Eyes: PERRL Musculoskeletal: Flexion and extension of lumbar [spine] somewhat guarded secondary to pain, [antalgic gait noted] Neurological: Speech clear, no gross sensory deficit Assessment:: Degenerative disc disease of lumbar spine with lumbar radiculopathy symptoms Plan:: I will refill the patient's [place] 10 mg 4 times a day and gabapentin 100 mg 3 times a day. Patient will return to clinic in 1 month for reevaluation of symptoms and plan of care. I have counseled the patient that we have no issues regarding her upcoming surgery and to let us know if we can be of any help or assistance following this recovery. Risks and benefits of the medication have been explained in detail to the patient. The patient does understand the risk of dependence on the medication when given over a prolonged period. Patient has been advised of risks of oversedation with the prescribed medication. Narcan has been offered to the paitent in the event of oversedation. Patient has been advised that a family member should also be educated regarding administration of Narcan. The patient has been advised to consult with his/her primary care provider and pharmacist regarding drug-drug interaction of medications currently prescribed. Patient has been prescribed a controlled substance after being counseled on the medication, medication safety, and possible side effects. Opioid contract was reviewed and signed by the patient, and that they have agreed to all of the terms set forth by our compliance program. Patient has been instructed to contact the clinic with any concerns before the next appointment. Dr. Beth has reviewed this note and agrees with this plan of care. This note was dictated using voice recognition software and make contain errors or omissions. [facility] Disclaimer: The information contained in this section may have been updated after the patient was seen, as this information can be updated by other users. Social History Smoking Status: Unknown if ever smoked alcohol intake: never substance use type: denies use current occupational status: other Travel in the last 8 weeks: None
== END 2023-09-04 23:59 | disposition home or self-care (01) ==
PROVIDERS: PCP Nurse Practitioner; Visit Provider Nurse Practitioner Family
DX: M51.16 Intervertebral disc disorders with radiculopathy, lumbar region (principal)
CPT/HCPCS: 99212; G0463

== ENCOUNTER 2023-10-02 09:12 | Outpatient (POV) | payer MEDICARE, BC, SELFPAY ==
--- NOTE | 2023-10-02 09:29 | A.OFFVIS_ITS ---
[facility] Pain Management SOAP Note Subjective:: Patient is a pleasant 57-year-old female who presents today for medication refill and follow-up. Today she rates her pain a 4 out of 10. Patient did end up having her total hysterectomy and vaginal reconstruction about 4 weeks ago. She states initially she had a lot more pain but she is starting to have much more improvement and is feeling more herself. Patient is currently managed with [place] 10 mg 4 times a day and gabapentin 100 mg 3 times a day from our office along with compounded cream. She denies any side effects from these medications. Her Osbaldo has been reviewed and is appropriate. Review of Systems: General: No recent weight changes, no fever, no sleep disturbances Respiratory: No cough, no shortness of air, no recurring pulmonary infections Cardiovascular/peripheral vascular: No chest pain, no palpitations, no edema, no shortness of breath Gastrointestinal: No new onset incontinence, normal bowel movements reported Genitourinary: No new onset incontinence Musculoskeletal: Low back pain Psychiatric: [Normal mood/affect] Neurological: [Denies weakness in extremities], [denies balance issues] Objective:: Physical Exam: General: Alert and oriented x3, no acute distress, pleasant and cooperative Lungs: Respirations even and unlabored, symmetrical chest expansion Eyes: PERRL Musculoskeletal: Flexion and extension of lumbar [spine] somewhat guarded secondary to pain, [antalgic gait noted] Neurological: Speech clear, no gross sensory deficit Assessment:: Degenerative disc disease at lumbar spine with lumbar radiculopathy symptoms Plan:: Will refill the patient's [place] and gabapentin and provide a 1 month supply of this medication. Patient was counseled that I will make sure she has refills on her compounded cream. Patient will return to clinic in 1 month for reevaluation of symptoms and plan of care Risks and benefits of the medication have been explained in detail to the patient. The patient does understand the risk of dependence on the medication when given over a prolonged period. Patient has been advised of risks of oversedation with the prescribed medication. Narcan has been offered to the paitent in the event of oversedation. Patient has been advised that a family member should also be educated regarding administration of Narcan. The patient has been advised to consult with his/her primary care provider and pharmacist regarding drug-drug interaction of medications currently prescribed. Patient has been prescribed a controlled substance after being counseled on the medication, medication safety, and possible side effects. Opioid contract was reviewed and signed by the patient, and that they have agreed to all of the terms set forth by our compliance program. Patient has been instructed to contact the clinic with any concerns before the next appointment. Dr. Beth has reviewed this note and agrees with this plan of care. This note was dictated using voice recognition software and make contain errors or omissions. [facility] Disclaimer: The information contained in this section may have been updated after the patient was seen, as this information can be updated by other users. Social History Smoking Status: Unknown if ever smoked alcohol intake: never substance use type: denies use current occupational status: other Travel in the last 8 weeks: None
[2023-10-02 09:33] VITALS: BP 155/77; PULSE 65; RESP 18; O2SAT 96; BMI 37.8
== END 2023-10-02 23:59 | disposition home or self-care (01) ==
PROVIDERS: PCP Nurse Practitioner; Visit Provider Nurse Practitioner Family
DX: M51.16 Intervertebral disc disorders with radiculopathy, lumbar region (principal)
CPT/HCPCS: 99212; G0463

== ENCOUNTER 2023-10-30 08:17 | Outpatient (POV) | payer MEDICARE, BC, SELFPAY ==
[2023-10-30 08:29] VITALS: BP 170/74; PULSE 68; RESP 18; O2SAT 97; BMI 38.6
--- NOTE | 2023-10-30 08:41 | A.OFFVIS_ITS ---
[facility] Pain Management SOAP Note Subjective:: Patient is a pleasant 67-year-old female who presents today for medication refill and follow-up. Today she rates her pain at 3 out of 10. Patient does state from her last visit that she has had surgery and that she can see so much better however she has had a little additional pain related to that. Patient does have bruising around her right and states she is scheduled to go to that office later this morning to have sutures removed. Patient is currently managed with [place] 10 mg 4 times a day and gabapentin 100 mg 3 times a day. Patient is also prescribed compounded cream. She denies any side effects from this medication. Her Osbaldo has been reviewed and is appropriate. Review of Systems: General: No recent weight changes, no fever, no sleep disturbances Respiratory: No cough, no shortness of air, no recurring pulmonary infections Cardiovascular/peripheral vascular: No chest pain, no palpitations, no edema, no shortness of breath Gastrointestinal: No new onset incontinence, normal bowel movements reported Genitourinary: No new onset incontinence Musculoskeletal: Low back pain Psychiatric: [Normal mood/affect] Neurological: [Denies weakness in extremities], [denies balance issues] Objective:: Physical Exam: General: Alert and oriented x3, no acute distress, pleasant and cooperative Lungs: Respirations even and unlabored, symmetrical chest expansion Eyes: PERRL Musculoskeletal: Flexion and extension of lumbar [spine] somewhat guarded secondary to pain, [antalgic gait noted] Neurological: Speech clear, no gross sensory deficit Assessment:: Degenerative disc disease of lumbar spine with lumbar radiculopathy symptoms Plan:: I will refill the patient's gabapentin and [place] and provide a 1 month supply of this medication. Patient will return to clinic in 1 month for reevaluation of symptoms and plan of care. Risks and benefits of the medication have been explained in detail to the patient. The patient does understand the risk of dependence on the medication when given over a prolonged period. Patient has been advised of risks of oversedation with the prescribed medication. Narcan has been offered to the paitent in the event of oversedation. Patient has been advised that a family member should also be educated regarding administration of Narcan. The patient has been advised to consult with his/her primary care provider and pharmacist regarding drug-drug interaction of medications currently prescribed. Patient has been prescribed a controlled substance after being counseled on the medication, medication safety, and possible side effects. Opioid contract was reviewed and signed by the patient, and that they have agreed to all of the terms set forth by our compliance program. Patient has been instructed to contact the clinic with any concerns before the next appointment. Dr. Beth has reviewed this note and agrees with this plan of care. This note was dictated using voice recognition software and make contain errors or omissions. [facility] Disclaimer: The information contained in this section may have been updated after the patient was seen, as this information can be updated by other users. Social History Smoking Status: Unknown if ever smoked alcohol intake: never substance use type: denies use current occupational status: retired Travel in the last 8 weeks: None
== END 2023-10-30 23:59 | disposition home or self-care (01) ==
PROVIDERS: PCP Nurse Practitioner; Visit Provider Nurse Practitioner Family
DX: M51.16 Intervertebral disc disorders with radiculopathy, lumbar region (principal)
CPT/HCPCS: 99212; G0463

== ENCOUNTER 2023-12-01 09:09 | Outpatient (POV) | payer MEDICARE, BC, SELFPAY ==
[2023-12-01 09:15] VITALS: BP 184/74; PULSE 68; RESP 18; O2SAT 97; BMI 37.8
--- NOTE | 2023-12-01 09:40 | EXP.PAIN.SOA ---
[facility] Disclaimer: The information contained in this section may have been updated after the patient was seen, as this information can be updated by other users. Social History Smoking Status: Unknown if ever smoked alcohol intake: never substance use type: denies use current occupational status: other Travel in the last 8 weeks: None PM Subjective & Objective Subjective Subjective:: Patient is a pleasant 67-year-old female who presents today for medication refill and follow-up. She rates her pain today a 3 out of 10. She denies any new trauma or injury. She is doing well with her [place] 10 mg 4 times a day and gabapentin 300 mg 3 times a day. Patient is also prescribed compounded cream. Her Osbaldo has been reviewed and is appropriate. Review of Systems: General: No recent weight changes, no fever, no sleep disturbances Respiratory: No cough, no shortness of air, no recurring pulmonary infections Cardiovascular/peripheral vascular: No chest pain, no palpitations, no edema, no shortness of breath Gastrointestinal: No new onset incontinence, normal bowel movements reported Genitourinary: No new onset incontinence Musculoskeletal: Low back pain Psychiatric: [Normal mood/affect] Neurological: [Denies weakness in extremities], [denies balance issues] Pain at rest (0-10 scale): 3 Objective Objective:: Physical Exam: General: Alert and oriented x3, no acute distress, pleasant and cooperative Lungs: Respirations even and unlabored, symmetrical chest expansion Eyes: PERRL Musculoskeletal: Flexion and extension of lumbar [spine] somewhat guarded secondary to pain, [antalgic gait noted] Neurological: Speech clear, no gross sensory deficit Has patient had previous pain injection?: No Conservative treatment options previously tried: Home exercise plan Length of treatment: Longer than 6 weeks and Prescription medications Length of treatment: Longer than 6 weeks Meds Home Medications and Allergies Home Medications Medication Instructions Recorded Confirmed Type hydrochlorothiazide 25 mg tablet 25 mg PO DAILY fluid 05/14/21 12/01/23 History methimazole 10 mg tablet 10 mg PO DAILY thyroid 05/14/21 12/01/23 History moexipril 15 mg tablet 15 mg PO DAILY bp 05/14/21 12/01/23 History omeprazole 20 mg capsule,delayed 20 mg PO DAILY GERD 05/14/21 12/01/23 History release propranolol 80 1 each PO DAILY bp 05/14/21 12/01/23 History mg-hydrochlorothiazide 25 mg tablet gabapentin 100 mg capsule 100 mg PO TID Pain #90 caps 10/30/23 12/01/23 Rx hydrocodone 10 mg-acetaminophen 1 tab PO QID Pain #120 tabs 10/30/23 12/01/23 Rx 325 mg tablet New Prescriptions to Start Prescriptions: Allergies Allergy/AdvReac Type Severity Reaction Status Date / Time ciprofloxacin [From CIPRO] Allergy Unknown I-RASH Verified 12/01/23 09:19 Sulfa (Sulfonamide Allergy Unknown I-RASH Verified 12/01/23 09:19 Antibiotics) [SULFA (SULFONAMIDE ANTIBIOTICS)] Assessment and Plan *Assessment and plan (1) Degenerative disc disease, lumbar: Status: Acute Category: Medical Code(s): M51.36 - Other intervertebral disc degeneration, lumbar region (2) Lumbar radiculopathy: Status: Acute Category: Medical Code(s): M54.16 - Radiculopathy, lumbar region Plan I will refill the patient's [place] and gabapentin and provide a 1 month supply of this medication. Patient will return to clinic in 1 month for reevaluation of symptoms. Risks and benefits of the medication have been explained in detail to the patient. The patient does understand the risk of dependence on the medication when given over a prolonged period. Patient has been advised of risks of oversedation with the prescribed medication. Narcan has been offered to the paitent in the event of oversedation. Patient has been advised that a family member should also be educated regarding administration of Narcan. The patient has been advised to consult with his/her primary care provider and pharmacist regarding drug-drug interaction of medications currently prescribed. Patient has been prescribed a controlled substance after being counseled on the medication, medication safety, and possible side effects. Opioid contract was reviewed and signed by the patient, and that they have agreed to all of the terms set forth by our compliance program. Patient has been instructed to contact the clinic with any concerns before the next appointment. Dr. Beth has reviewed this note and agrees with this plan of care. This note was dictated using voice recognition software and make contain errors or omissions.
== END 2023-12-01 23:59 | disposition home or self-care (01) ==
PROVIDERS: Visit Provider Nurse Practitioner Family
DX: M51.36 Other intervertebral disc degeneration, lumbar region (principal); M54.16 Radiculopathy, lumbar region
CPT/HCPCS: 99212; G0463

== ENCOUNTER 2024-01-01 08:26 | Outpatient (POV) | payer MEDICARE, BC, SELFPAY ==
[2024-01-01 09:03] VITALS: BP 152/79; PULSE 67; RESP 16; O2SAT 95; BMI 37.8
--- NOTE | 2024-01-01 09:15 | A.OFFVIS_ITS ---
[facility] Disclaimer: The information contained in this section may have been updated after the patient was seen, as this information can be updated by other users. Social History Smoking Status: Unknown if ever smoked alcohol intake: never substance use type: denies use current occupational status: unemployed Travel in the last 8 weeks: None PM Subjective & Objective Subjective Subjective:: Patient is a pleasant 68-year-old female who presents today for medication refill. Today she rates her pain at 3 out of 10. Patient denies any new trauma or injury. She is currently managed with [place] 10 mg 4 times a day and gabapentin 300 mg 3 times a day. She denies any side effects from this medication. Patient does also have compounded cream. Her Osbaldo has been reviewed and is appropriate. Review of Systems: General: No recent weight changes, no fever, no sleep disturbances Respiratory: No cough, no shortness of air, no recurring pulmonary infections Cardiovascular/peripheral vascular: No chest pain, no palpitations, no edema, no shortness of breath Gastrointestinal: No new onset incontinence, normal bowel movements reported Genitourinary: No new onset incontinence Musculoskeletal: Low back pain Psychiatric: [Normal mood/affect] Neurological: [Denies weakness in extremities], [denies balance issues] Pain at rest (0-10 scale): 3 Objective Objective:: Physical Exam: General: Alert and oriented x3, no acute distress, pleasant and cooperative Lungs: Respirations even and unlabored, symmetrical chest expansion Eyes: PERRL Musculoskeletal: Flexion and extension of lumbar [spine] somewhat guarded secondary to pain, [antalgic gait noted] Neurological: Speech clear, no gross sensory deficit Has patient had previous pain injection?: No Conservative treatment options previously tried: Home exercise plan Length of treatment: Longer than 6 weeks Meds Home Medications and Allergies Home Medications ?Medication ?Instructions ?Recorded ?Confirmed ?Type hydrochlorothiazide 25 mg tablet 25 mg PO DAILY fluid 05/14/21 01/01/24 History methimazole 10 mg tablet 10 mg PO DAILY thyroid 05/14/21 01/01/24 History moexipril 15 mg tablet 15 mg PO DAILY bp 05/14/21 01/01/24 History omeprazole 20 mg capsule,delayed 20 mg PO DAILY GERD 01/03/22 08/22/24 History release propranolol 80 1 each PO DAILY bp 05/14/21 01/01/24 History mg-hydrochlorothiazide 25 mg tablet gabapentin 100 mg capsule 100 mg PO TID Pain #90 caps 12/01/23 01/01/24 Rx hydrocodone 10 mg-acetaminophen 1 tab PO QID Pain #120 tabs 12/01/23 01/01/24 Rx 325 mg tablet New Prescriptions to Start Prescriptions: Allergies Allergy/AdvReac Type Severity Reaction Status Date / Time ciprofloxacin [From CIPRO] Allergy Unknown I-RASH Verified 12/01/23 09:19 Sulfa (Sulfonamide Allergy Unknown I-RASH Verified 12/01/23 09:19 Antibiotics) [SULFA (SULFONAMIDE ANTIBIOTICS)] Assessment and Plan *Assessment and plan (1) Lumbar radiculopathy: Status: Acute Category: Medical Code(s): M54.16 - Radiculopathy, lumbar region (2) Degenerative disc disease, lumbar: Status: Acute Category: Medical Code(s): M51.36 - Other intervertebral disc degeneration, lumbar region Plan Patient continues to do well with her current medications. I will refill her [place] and gabapentin and provide a 1 month supply of this medication. Patient will return to clinic in 1 month for reevaluation of symptoms and plan of care. Risks and benefits of the medication have been explained in detail to the patient. The patient does understand the risk of dependence on the medication when given over a prolonged period. Patient has been advised of risks of oversedation with the prescribed medication. Narcan has been offered to the paitent in the event of oversedation. Patient has been advised that a family member should also be educated regarding administration of Narcan. The patient has been advised to consult with his/her primary care provider and pharmacist regarding drug-drug interaction of medications currently prescribed. Patient has been prescribed a controlled substance after being counseled on the medication, medication safety, and possible side effects. Opioid contract was reviewed and signed by the patient, and that they have agreed to all of the terms set forth by our compliance program. Patient has been instructed to contact the clinic with any concerns before the next appointment. Dr. Beth has reviewed this note and agrees with this plan of care. This note was dictated using voice recognition software and make contain errors or omissions.
== END 2024-01-01 23:59 | disposition home or self-care (01) ==
PROVIDERS: PCP Nurse Practitioner; Visit Provider Nurse Practitioner Family
DX: M51.16 Intervertebral disc disorders with radiculopathy, lumbar region (principal)
CPT/HCPCS: 99212; G0463

== ENCOUNTER 2024-01-29 08:27 | Outpatient (POV) | payer MEDICARE, BC, SELFPAY ==
[2024-01-29 08:42] VITALS: BP 150/87; PULSE 72; RESP 16; O2SAT 97; BMI 37.8
--- NOTE | 2024-01-29 08:42 | EXP.PAIN.SOA ---
[facility] Disclaimer: The information contained in this section may have been updated after the patient was seen, as this information can be updated by other users. Social History Smoking Status: Unknown if ever smoked alcohol intake: never substance use type: denies use current occupational status: unemployed Travel in the last 8 weeks: None PM Subjective & Objective Subjective Subjective:: Patient is a pleasant 68-year-old female who presents today for medication refill and follow-up. Today she rates her pain a 3 out of 10. She denies any new trauma or injury. She does state that she is still doing well with her medications. She is on [place] 10 mg 4 times a day and gabapentin 300 mg 3 times a day along with compounded cream. She denies any side effects. Her Osbaldo has been reviewed and is appropriate. Review of Systems: General: No recent weight changes, no fever, no sleep disturbances Respiratory: No cough, no shortness of air, no recurring pulmonary infections Cardiovascular/peripheral vascular: No chest pain, no palpitations, no edema, no shortness of breath Gastrointestinal: No new onset incontinence, normal bowel movements reported Genitourinary: No new onset incontinence Musculoskeletal: Low back pain Psychiatric: [Normal mood/affect] Neurological: [Denies weakness in extremities], [denies balance issues] Pain at rest (0-10 scale): 3 Objective Objective:: Physical Exam: General: Alert and oriented x3, no acute distress, pleasant and cooperative Lungs: Respirations even and unlabored, symmetrical chest expansion Eyes: PERRL Musculoskeletal: Flexion and extension of lumbar [spine] somewhat guarded secondary to pain, [antalgic gait noted] Neurological: Speech clear, no gross sensory deficit Has patient had previous pain injection?: No Conservative treatment options previously tried: Prescription medications Length of treatment: Longer than 12 weeks Meds Home Medications and Allergies Home Medications ?Medication ?Instructions ?Recorded ?Confirmed ?Type hydrochlorothiazide 25 mg tablet 25 mg PO DAILY fluid 05/14/21 01/29/24 History methimazole 10 mg tablet 10 mg PO DAILY thyroid 05/14/21 01/29/24 History moexipril 15 mg tablet 15 mg PO DAILY bp 05/14/21 01/29/24 History omeprazole 20 mg capsule,delayed 20 mg PO DAILY GERD 05/14/21 01/29/24 History release propranolol 80 1 each PO DAILY bp 05/14/21 01/29/24 History mg-hydrochlorothiazide 25 mg tablet gabapentin 100 mg capsule 100 mg PO TID Pain #90 caps 01/01/24 01/29/24 Rx hydrocodone 10 mg-acetaminophen 1 tab PO QID Pain #120 tabs 01/01/24 01/29/24 Rx 325 mg tablet New Prescriptions to Start Prescriptions: Allergies Allergy/AdvReac Type Severity Reaction Status Date / Time ciprofloxacin [From CIPRO] Allergy Unknown I-RASH Verified 01/29/24 08:42 Sulfa (Sulfonamide Allergy Unknown I-RASH Verified 01/29/24 08:42 Antibiotics) [SULFA (SULFONAMIDE ANTIBIOTICS)] Assessment and Plan *Assessment and plan (1) Lumbar radiculopathy: Status: Acute Category: Medical Code(s): M54.16 - Radiculopathy, lumbar region (2) Degenerative disc disease, lumbar: Status: Acute Category: Medical Code(s): M51.36 - Other intervertebral disc degeneration, lumbar region Plan Patient is still doing well with her current medication regimen. We will refill her [place] and gabapentin and provide 1 month supply of these medications. Patient will return to clinic in 1 month. Risks and benefits of the medication have been explained in detail to the patient. The patient does understand the risk of dependence on the medication when given over a prolonged period. Patient has been advised of risks of oversedation with the prescribed medication. Narcan has been offered to the paitent in the event of oversedation. Patient has been advised that a family member should also be educated regarding administration of Narcan. The patient has been advised to consult with his/her primary care provider and pharmacist regarding drug-drug interaction of medications currently prescribed. Patient has been prescribed a controlled substance after being counseled on the medication, medication safety, and possible side effects. Opioid contract was reviewed and signed by the patient, and that they have agreed to all of the terms set forth by our compliance program. Patient has been instructed to contact the clinic with any concerns before the next appointment. Dr. Beth has reviewed this note and agrees with this plan of care. This note was dictated using voice recognition software and make contain errors or omissions.
== END 2024-01-29 23:59 | disposition home or self-care (01) ==
PROVIDERS: PCP Nurse Practitioner; Visit Provider Nurse Practitioner Family
DX: M51.16 Intervertebral disc disorders with radiculopathy, lumbar region (principal)
CPT/HCPCS: 99212; G0463

== ENCOUNTER 2024-03-01 08:22 | Outpatient (POV) | payer MEDICARE, BC, SELFPAY ==
--- NOTE | 2024-03-01 08:44 | EXP.PAIN.SOA ---
[facility] Disclaimer: The information contained in this section may have been updated after the patient was seen, as this information can be updated by other users. Social History Smoking Status: Unknown if ever smoked alcohol intake: never substance use type: denies use current occupational status: other Travel in the last 8 weeks: None PM Subjective & Objective Subjective Subjective:: Patient is a pleasant 68-year-old female who presents today for medication refill and follow-up. She rates her pain today 4 out of 10. She denies any new changes from our last visit. We did currently prescribe her [place] 10 mg 4 times a day, gabapentin 300 mg 3 times a day and compounded cream. She denies any side effects from this medication. Her Osbaldo has been reviewed and is appropriate. Review of Systems: General: No recent weight changes, no fever, no sleep disturbances Respiratory: No cough, no shortness of air, no recurring pulmonary infections Cardiovascular/peripheral vascular: No chest pain, no palpitations, no edema, no shortness of breath Gastrointestinal: No new onset incontinence, normal bowel movements reported Genitourinary: No new onset incontinence Musculoskeletal: Low back pain Psychiatric: [Normal mood/affect] Neurological: [Denies weakness in extremities], [denies balance issues] Pain at rest (0-10 scale): 4 Objective Objective:: Physical Exam: General: Alert and oriented x3, no acute distress, pleasant and cooperative Lungs: Respirations even and unlabored, symmetrical chest expansion Eyes: PERRL Musculoskeletal: Flexion and extension of lumbar [spine] somewhat guarded secondary to pain, [antalgic gait noted] Neurological: Speech clear, no gross sensory deficit Has patient had previous pain injection?: No Conservative treatment options previously tried: Home exercise plan Length of treatment: Longer than 6 weeks Meds Home Medications and Allergies Home Medications ?Medication ?Instructions ?Recorded ?Confirmed ?Type hydrochlorothiazide 25 mg tablet 25 mg PO DAILY fluid 05/14/21 01/29/24 History methimazole 10 mg tablet 10 mg PO DAILY thyroid 05/14/21 01/29/24 History moexipril 15 mg tablet 15 mg PO DAILY bp 05/14/21 01/29/24 History omeprazole 20 mg capsule,delayed 20 mg PO DAILY GERD 05/14/21 01/29/24 History release propranolol 80 1 each PO DAILY bp 05/14/21 01/29/24 History mg-hydrochlorothiazide 25 mg tablet gabapentin 100 mg capsule 100 mg PO TID Pain #90 caps 01/29/24 Rx hydrocodone 10 mg-acetaminophen 1 tab PO QID Pain #120 tabs 01/29/24 Rx 325 mg tablet New Prescriptions to Start Prescriptions: Allergies Allergy/AdvReac Type Severity Reaction Status Date / Time ciprofloxacin [From CIPRO] Allergy Unknown I-RASH Verified 01/29/24 08:42 Sulfa (Sulfonamide Allergy Unknown I-RASH Verified 01/29/24 08:42 Antibiotics) [SULFA (SULFONAMIDE ANTIBIOTICS)] Assessment and Plan *Assessment and plan (1) Lumbar radiculopathy: Status: Acute Category: Medical Code(s): M54.16 - Radiculopathy, lumbar region (2) Degenerative disc disease, lumbar: Status: Acute Category: Medical Code(s): M51.36 - Other intervertebral disc degeneration, lumbar region Plan We will refill the patient's [place] and gabapentin and provide a 1 month supply of these medications. Patient will return to clinic in 1 month for reevaluation of symptoms and plan of care. Risks and benefits of the medication have been explained in detail to the patient. The patient does understand the risk of dependence on the medication when given over a prolonged period. Patient has been advised of risks of oversedation with the prescribed medication. Narcan has been offered to the paitent in the event of oversedation. Patient has been advised that a family member should also be educated regarding administration of Narcan. The patient has been advised to consult with his/her primary care provider and pharmacist regarding drug-drug interaction of medications currently prescribed. Patient has been prescribed a controlled substance after being counseled on the medication, medication safety, and possible side effects. Opioid contract was reviewed and signed by the patient, and that they have agreed to all of the terms set forth by our compliance program. Patient has been instructed to contact the clinic with any concerns before the next appointment. Dr. Beth has reviewed this note and agrees with this plan of care. This note was dictated using voice recognition software and make contain errors or omissions.
[2024-03-01 08:53] VITALS: BP 153/79; PULSE 72; RESP 16; O2SAT 95; BMI 37.8
== END 2024-03-01 23:59 | disposition home or self-care (01) ==
PROVIDERS: PCP Nurse Practitioner; Visit Provider Nurse Practitioner Family
DX: M51.16 Intervertebral disc disorders with radiculopathy, lumbar region (principal)
CPT/HCPCS: 99212; G0463

== ENCOUNTER 2024-04-02 08:30 | Outpatient (POV) | payer MEDICARE, BC, SELFPAY ==
--- NOTE | 2024-04-02 08:55 | EXP.PAIN.SOA ---
[facility] Disclaimer: The information contained in this section may have been updated after the patient was seen, as this information can be updated by other users. Social History Smoking Status: Unknown if ever smoked alcohol intake: never substance use type: denies use current occupational status: other PM Subjective & Objective Subjective Subjective:: Patient is a pleasant 68-year-old female who presents today for medication refill. Today she rates her pain a 3 out of 10. She states that she has done well from the last visit. She states that her medications do help. She is currently prescribed [place] 10 mg 4 times a day, gabapentin 300 mg 3 times a day and compounded cream. She denies any side effects from this medication. Her Osbaldo has been reviewed and is appropriate. Review of Systems: General: No recent weight changes, no fever, no sleep disturbances Respiratory: No cough, no shortness of air, no recurring pulmonary infections Cardiovascular/peripheral vascular: No chest pain, no palpitations, no edema, no shortness of breath Gastrointestinal: No new onset incontinence, normal bowel movements reported Genitourinary: No new onset incontinence Musculoskeletal: Low back pain Psychiatric: [Normal mood/affect] Neurological: [Denies weakness in extremities], [denies balance issues] Pain at rest (0-10 scale): 3 Objective Objective:: Physical Exam: General: Alert and oriented x3, no acute distress, pleasant and cooperative Lungs: Respirations even and unlabored, symmetrical chest expansion Eyes: PERRL Musculoskeletal: Flexion and extension of lumbar [spine] somewhat guarded secondary to pain, [antalgic gait noted] Neurological: Speech clear, no gross sensory deficit Has patient had previous pain injection?: No Conservative treatment options previously tried: Home exercise plan Length of treatment: Longer than 12 weeks Meds Home Medications and Allergies Home Medications ?Medication ?Instructions ?Recorded ?Confirmed ?Type hydrochlorothiazide 25 mg tablet 25 mg PO DAILY fluid 05/14/21 03/01/24 History methimazole 10 mg tablet 10 mg PO DAILY thyroid 05/14/21 03/01/24 History moexipril 15 mg tablet 15 mg PO DAILY bp 05/14/21 03/01/24 History omeprazole 20 mg capsule,delayed 20 mg PO DAILY GERD 05/14/21 03/01/24 History release propranolol 80 1 each PO DAILY bp 05/14/21 03/01/24 History mg-hydrochlorothiazide 25 mg tablet gabapentin 100 mg capsule 100 mg PO TID Pain #90 caps 03/01/24 Rx hydrocodone 10 mg-acetaminophen 1 tab PO QID Pain #120 tabs 03/01/24 Rx 325 mg tablet New Prescriptions to Start Prescriptions: Allergies Allergy/AdvReac Type Severity Reaction Status Date / Time ciprofloxacin (From CIPRO) Allergy Unknown I-RASH Verified 01/29/24 08:42 Sulfa (Sulfonamide Allergy Unknown I-RASH Verified 01/29/24 08:42 Antibiotics) (SULFA (SULFONAMIDE ANTIBIOTICS)) Assessment and Plan *Assessment and plan (1) Lumbar radiculopathy: Status: Acute Category: Medical Code(s): M54.16 - Radiculopathy, lumbar region (2) Degenerative disc disease, lumbar: Status: Acute Category: Medical Code(s): M51.36 - Other intervertebral disc degeneration, lumbar region Plan I will refill her [place] and gabapentin and provide a 1 month supply of these medications. Patient will return to clinic in 1 month for reevaluation of symptoms and plan of care. Risks and benefits of the medication have been explained in detail to the patient. The patient does understand the risk of dependence on the medication when given over a prolonged period. Patient has been advised of risks of oversedation with the prescribed medication. Narcan has been offered to the paitent in the event of oversedation. Patient has been advised that a family member should also be educated regarding administration of Narcan. The patient has been advised to consult with his/her primary care provider and pharmacist regarding drug-drug interaction of medications currently prescribed. Patient has been prescribed a controlled substance after being counseled on the medication, medication safety, and possible side effects. Opioid contract was reviewed and signed by the patient, and that they have agreed to all of the terms set forth by our compliance program. Patient has been instructed to contact the clinic with any concerns before the next appointment. Dr. Beth has reviewed this note and agrees with this plan of care. This note was dictated using voice recognition software and make contain errors or omissions.
[2024-04-02 08:56] VITALS: BP 163/88; PULSE 75; RESP 16; O2SAT 95; BMI 37.2
== END 2024-04-02 23:59 | disposition home or self-care (01) ==
PROVIDERS: PCP Nurse Practitioner; Visit Provider Nurse Practitioner Family
DX: M51.16 Intervertebral disc disorders with radiculopathy, lumbar region (principal)
CPT/HCPCS: 99212; G0463

== ENCOUNTER 2024-04-29 09:25 | Outpatient (POV) | payer MEDICARE, BC, SELFPAY ==
[2024-04-29 09:36] VITALS: BP 156/68; PULSE 78; RESP 18; O2SAT 96; BMI 37.8
--- NOTE | 2024-04-29 09:37 | EXP.PAIN.SOA ---
[facility] Disclaimer: The information contained in this section may have been updated after the patient was seen, as this information can be updated by other users. Social History (Updated 04/02/24 @ 08:57 by Natty Beck APRN) Smoking Status: Unknown if ever smoked alcohol intake: never substance use type: denies use current occupational status: retired Travel in the last 8 weeks: None PM Subjective & Objective Subjective Subjective:: Patient is a pleasant 68-year-old female who presents today for her monthly follow-up and medication refill. Today she rates her pain a 3 out of 10. She denies any changes from her last appointment. She is currently managed with [place] 10 mg 4 times a day and gabapentin 300 mg 3 times a day. She denies any side effects from this medication. She is also prescribed compounded cream. Her Osbaldo has been reviewed and is appropriate. Review of Systems: General: No recent weight changes, no fever, no sleep disturbances Respiratory: No cough, no shortness of air, no recurring pulmonary infections Cardiovascular/peripheral vascular: No chest pain, no palpitations, no edema, no shortness of breath Gastrointestinal: No new onset incontinence, normal bowel movements reported Genitourinary: No new onset incontinence Musculoskeletal: Low back pain Psychiatric: [Normal mood/affect] Neurological: [Denies weakness in extremities], [denies balance issues] Pain at rest (0-10 scale): 3 Objective Objective:: Physical Exam: General: Alert and oriented x3, no acute distress, pleasant and cooperative Lungs: Respirations even and unlabored, symmetrical chest expansion Eyes: PERRL Musculoskeletal: Flexion and extension of lumbar [spine] somewhat guarded secondary to pain, [antalgic gait noted] Neurological: Speech clear, no gross sensory deficit Has patient had previous pain injection?: No Conservative treatment options previously tried: Prescription medications Length of treatment: Longer than 12 weeks Meds Home Medications and Allergies Home Medications ?Medication ?Instructions ?Recorded ?Confirmed ?Type hydrochlorothiazide 25 mg tablet 25 mg PO DAILY fluid 05/14/21 04/29/24 History methimazole 10 mg tablet 10 mg PO DAILY thyroid 05/14/21 04/29/24 History moexipril 15 mg tablet 15 mg PO DAILY bp 05/14/21 04/29/24 History omeprazole 20 mg capsule,delayed 20 mg PO DAILY GERD 05/14/21 04/29/24 History release propranolol 80 1 each PO DAILY bp 05/14/21 04/29/24 History mg-hydrochlorothiazide 25 mg tablet gabapentin 100 mg capsule 100 mg PO TID Pain #90 caps 04/02/24 04/29/24 Rx hydrocodone 10 mg-acetaminophen 1 tab PO QID Pain #120 tabs 04/02/24 04/29/24 Rx 325 mg tablet New Prescriptions to Start Prescriptions: Allergies Allergy/AdvReac Type Severity Reaction Status Date / Time ciprofloxacin (From CIPRO) Allergy Unknown I-RASH Verified 01/29/24 08:42 Sulfa (Sulfonamide Allergy Unknown I-RASH Verified 01/29/24 08:42 Antibiotics) (SULFA (SULFONAMIDE ANTIBIOTICS)) Assessment and Plan *Assessment and plan (1) Lumbar radiculopathy: Status: Acute Category: Medical Code(s): M54.16 - Radiculopathy, lumbar region (2) Degenerative disc disease, lumbar: Status: Acute Category: Medical Code(s): M51.369 - Other intervertebral disc degeneration, lumbar region without mention of lumbar back pain or lower extremity pain Plan I will refill the patient's [place] and gabapentin and provide a 1 month supply of this medication. Patient will return to clinic in 1 month for reevaluation of symptoms and plan of care. Risks and benefits of the medication have been explained in detail to the patient. The patient does understand the risk of dependence on the medication when given over a prolonged period. Patient has been advised of risks of oversedation with the prescribed medication. Narcan has been offered to the paitent in the event of oversedation. Patient has been advised that a family member should also be educated regarding administration of Narcan. The patient has been advised to consult with his/her primary care provider and pharmacist regarding drug-drug interaction of medications currently prescribed. Patient has been prescribed a controlled substance after being counseled on the medication, medication safety, and possible side effects. Opioid contract was reviewed and signed by the patient, and that they have agreed to all of the terms set forth by our compliance program. A UDS is needed to verify patient's compliance with our office pain contract. This is ordered based off specific treatments related to chronic pain with the potential to abuse certain medications. Patient has been instructed to contact the clinic with any concerns before the next appointment. Dr. Beth has reviewed this note and agrees with this plan of care. This note was dictated using voice recognition software and make contain errors or omissions.
== END 2024-04-29 23:59 | disposition home or self-care (01) ==
PROVIDERS: PCP Nurse Practitioner; Visit Provider Nurse Practitioner Family
DX: M51.16 Intervertebral disc disorders with radiculopathy, lumbar region (principal)
CPT/HCPCS: 99212; G0463

== ENCOUNTER 2024-05-27 08:11 | Outpatient (POV) | payer MEDICARE, BC, SELFPAY ==
[2024-05-27 08:44] VITALS: BP 152/86; PULSE 74; RESP 16; O2SAT 97; BMI 36.0
--- NOTE | 2024-05-27 08:53 | EXP.PAIN.SOA ---
[facility] Disclaimer: The information contained in this section may have been updated after the patient was seen, as this information can be updated by other users. Social History (Updated 04/02/24 @ 08:57 by Natty Beck APRN) Smoking Status: Unknown if ever smoked alcohol intake: never substance use type: denies use current occupational status: other Travel in the last 8 weeks: None PM Subjective & Objective Subjective Subjective:: Patient is a pleasant 58-year-old female who presents today for medication refill. Today she rates her pain a 3 out of 10. She denies anything new from our last visit. She is prescribed [place] 10 mg 4 times a day and gabapentin 300 mg 3 times a day along with compounded cream. She denies any side effects. Patient does state today that she appreciates us being able to get her in sooner this morning that she does have a to go to. Her Osbaldo has been reviewed and is appropriate. Review of Systems: General: No recent weight changes, no fever, no sleep disturbances Respiratory: No cough, no shortness of air, no recurring pulmonary infections Cardiovascular/peripheral vascular: No chest pain, no palpitations, no edema, no shortness of breath Gastrointestinal: No new onset incontinence, normal bowel movements reported Genitourinary: No new onset incontinence Musculoskeletal: Low back pain Psychiatric: [Normal mood/affect] Neurological: [Denies weakness in extremities], [denies balance issues] Pain at rest (0-10 scale): 3 Objective Objective:: Physical Exam: General: Alert and oriented x3, no acute distress, pleasant and cooperative Lungs: Respirations even and unlabored, symmetrical chest expansion Eyes: PERRL Musculoskeletal: Flexion and extension of lumbar [spine] somewhat guarded secondary to pain, [antalgic gait noted] Neurological: Speech clear, no gross sensory deficit Has patient had previous pain injection?: No Conservative treatment options previously tried: Prescription medications Length of treatment: Longer than 12-week Meds Home Medications and Allergies Home Medications ?Medication ?Instructions ?Recorded ?Confirmed ?Type hydrochlorothiazide 25 mg tablet 25 mg PO DAILY fluid 05/14/21 05/27/24 History methimazole 10 mg tablet 10 mg PO DAILY thyroid 05/14/21 05/27/24 History moexipril 15 mg tablet 15 mg PO DAILY bp 01/03/22 01/16/25 History omeprazole 20 mg capsule,delayed 20 mg PO DAILY GERD 05/14/21 05/27/24 History release propranolol 80 1 each PO DAILY bp 05/14/21 05/27/24 History mg-hydrochlorothiazide 25 mg tablet gabapentin 100 mg capsule 100 mg PO TID Pain #90 caps 04/29/24 05/27/24 Rx hydrocodone 10 mg-acetaminophen 1 tab PO QID Pain #120 tabs 04/29/24 05/27/24 Rx 325 mg tablet New Prescriptions to Start Prescriptions: Allergies Allergy/AdvReac Type Severity Reaction Status Date / Time ciprofloxacin (From CIPRO) Allergy Unknown I-RASH Verified 01/29/24 08:42 Sulfa (Sulfonamide Allergy Unknown I-RASH Verified 01/29/24 08:42 Antibiotics) (SULFA (SULFONAMIDE ANTIBIOTICS)) Assessment and Plan *Assessment and plan (1) Lumbar radiculopathy: Status: Acute Category: Medical Code(s): M54.16 - Radiculopathy, lumbar region (2) Degenerative disc disease, lumbar: Status: Acute Category: Medical Code(s): M51.369 - Other intervertebral disc degeneration, lumbar region without mention of lumbar back pain or lower extremity pain Plan I will refill the patient's [place] and gabapentin and provide a 1 month supply of this medication. Patient will return to clinic in 1 month for reevaluation of symptoms and plan of care. Risks and benefits of the medication have been explained in detail to the patient. The patient does understand the risk of dependence on the medication when given over a prolonged period. Patient has been advised of risks of oversedation with the prescribed medication. Narcan has been offered to the paitent in the event of oversedation. Patient has been advised that a family member should also be educated regarding administration of Narcan. The patient has been advised to consult with his/her primary care provider and pharmacist regarding drug-drug interaction of medications currently prescribed. Patient has been prescribed a controlled substance after being counseled on the medication, medication safety, and possible side effects. Opioid contract was reviewed and signed by the patient, and that they have agreed to all of the terms set forth by our compliance program. A UDS is needed to verify patient's compliance with our office pain contract. This is ordered based off specific treatments related to chronic pain with the potential to abuse certain medications. Patient has been instructed to contact the clinic with any concerns before the next appointment. Dr. Beth has reviewed this note and agrees with this plan of care. This note was dictated using voice recognition software and make contain errors or omissions.
== END 2024-05-27 23:59 | disposition home or self-care (01) ==
PROVIDERS: PCP Nurse Practitioner; Visit Provider Nurse Practitioner Family
DX: M51.16 Intervertebral disc disorders with radiculopathy, lumbar region (principal)
CPT/HCPCS: 99212; G0463

== ENCOUNTER 2024-07-01 08:27 | Outpatient (POV) | payer MEDICARE, BC, SELFPAY ==
[2024-07-01 08:39] VITALS: BP 149/81; PULSE 73; RESP 16; O2SAT 95; BMI 32.8
--- NOTE | 2024-07-01 08:48 | EXP.PAIN.SOA ---
[facility] Disclaimer: The information contained in this section may have been updated after the patient was seen, as this information can be updated by other users. Medical History (Updated 07/01/24 @ 08:44 by Amara Ayala RN) High blood pressure Social History (Updated 04/02/24 @ 08:57 by Natty Beck APRN) Smoking Status: Unknown if ever smoked alcohol intake: never substance use type: denies use current occupational status: other Travel in the last 8 weeks: None Have you lived/traveled outside [place] in past 30 days?: No Contact w/someone who lives/traveled outside [place] past 30 days?: No Exposure to someone with infectious disease in past 14 days?: No Do you have a fever (greater than 100.4 F or 38 C)?: No Have you tested positive for COVID-19: No Exposed to someone with COVID-19 in past 14 days?: No Do you have a sore throat?: No Do you have a cough?: No Do you have any weakness?: No Do you have any diarrhea?: No Are you experiencing any unusual bleeding?: No Do you have any muscle aches/pain?: No Do you have any abdominal pain?: No Are you experiencing loss of taste or smell?: No PM Subjective & Objective Subjective Subjective:: Patient is a pleasant 68-year-old female who presents today for 1 month follow-up and medication refill. She rates her pain today a 4 out of 10. She denies any new changes. She is prescribed [place] 10 mg 4 times a day and gabapentin 300 mg 3 times a day with compounded cream from our office. She denies any side effects. Her [place] has been reviewed and is appropriate. Review of Systems: General: No recent weight changes, no fever, no sleep disturbances Respiratory: No cough, no shortness of air, no recurring pulmonary infections Cardiovascular/peripheral vascular: No chest pain, no palpitations, no edema, no shortness of breath Gastrointestinal: No new onset incontinence, normal bowel movements reported Genitourinary: No new onset incontinence Musculoskeletal: Low back pain Psychiatric: [Normal mood/affect] Neurological: [Denies weakness in extremities], [denies balance issues] Pain at rest (0-10 scale): 4 Objective Objective:: Physical Exam: General: Alert and oriented x3, no acute distress, pleasant and cooperative Lungs: Respirations even and unlabored, symmetrical chest expansion Eyes: PERRL Musculoskeletal: Flexion and extension of lumbar [spine] somewhat guarded secondary to pain, [antalgic gait noted] Neurological: Speech clear, no gross sensory deficit Has patient had previous pain injection?: No Conservative treatment options previously tried: Prescription medications Length of treatment: Longer than 12 weeks Meds Home Medications and Allergies Home Medications ?Medication ?Instructions ?Recorded ?Confirmed ?Type hydrochlorothiazide 25 mg tablet 25 mg PO DAILY fluid 05/14/21 07/01/24 History methimazole 10 mg tablet 10 mg PO DAILY thyroid 05/14/21 07/01/24 History moexipril 15 mg tablet 15 mg PO DAILY bp 05/14/21 07/01/24 History omeprazole 20 mg capsule,delayed 20 mg PO DAILY GERD 05/14/21 07/01/24 History release propranolol 80 1 each PO DAILY bp 05/14/21 07/01/24 History mg-hydrochlorothiazide 25 mg tablet gabapentin 100 mg capsule 100 mg PO TID Pain #90 caps 05/27/24 07/01/24 Rx hydrocodone 10 mg-acetaminophen 1 tab PO QID Pain #120 tabs 05/27/24 07/01/24 Rx 325 mg tablet New Prescriptions to Start Prescriptions: Allergies Allergy/AdvReac Type Severity Reaction Status Date / Time ciprofloxacin (From CIPRO) Allergy Unknown I-RASH Verified 01/29/24 08:42 Sulfa (Sulfonamide Allergy Unknown I-RASH Verified 01/29/24 08:42 Antibiotics) (SULFA (SULFONAMIDE ANTIBIOTICS)) Assessment and Plan *Assessment and plan (1) Lumbar radiculopathy: Status: Acute Category: Medical Code(s): M54.16 - Radiculopathy, lumbar region (2) Degenerative disc disease, lumbar: Status: Acute Category: Medical Code(s): M51.369 - Other intervertebral disc degeneration, lumbar region without mention of lumbar back pain or lower extremity pain Plan I will refill the patient's [place] and gabapentin and provide a 1 month supply of this medication. Patient will return to clinic in the morning. Risks and benefits of the medication have been explained in detail to the patient. The patient does understand the risk of dependence on the medication when given over a prolonged period. Patient has been advised of risks of oversedation with the prescribed medication. Narcan has been offered to the paitent in the event of oversedation. Patient has been advised that a family member should also be educated regarding administration of Narcan. The patient has been advised to consult with his/her primary care provider and pharmacist regarding drug-drug interaction of medications currently prescribed. Patient has been prescribed a controlled substance after being counseled on the medication, medication safety, and possible side effects. Opioid contract was reviewed and signed by the patient, and that they have agreed to all of the terms set forth by our compliance program. A UDS is needed to verify patient's compliance with our office pain contract. This is ordered based off specific treatments related to chronic pain with the potential to abuse certain medications. Patient has been instructed to contact the clinic with any concerns before the next appointment. Dr. Beth has reviewed this note and agrees with this plan of care. This note was dictated using voice recognition software and make contain errors or omissions.
== END 2024-07-01 23:59 | disposition home or self-care (01) ==
PROVIDERS: PCP Nurse Practitioner; Visit Provider Nurse Practitioner Family
DX: M51.16 Intervertebral disc disorders with radiculopathy, lumbar region (principal)
CPT/HCPCS: 99212; G0463

== ENCOUNTER 2024-07-29 09:12 | Outpatient (POV) | payer MEDICARE, BC, SELFPAY ==
--- NOTE | 2024-07-29 09:15 | EXP.PAIN.SOA ---
[facility] Disclaimer: The information contained in this section may have been updated after the patient was seen, as this information can be updated by other users. Medical History (Updated 07/01/24 @ 08:44 by Amara Ayala RN) High blood pressure Social History (Updated 04/02/24 @ 08:57 by Natty Beck APRN) Smoking Status: Unknown if ever smoked alcohol intake: never substance use type: denies use current occupational status: other Travel in the last 8 weeks: None Have you lived/traveled outside [place] in past 30 days?: No Contact w/someone who lives/traveled outside [place] past 30 days?: No Exposure to someone with infectious disease in past 14 days?: No Do you have a fever (greater than 100.4 F or 38 C)?: No Have you tested positive for COVID-19: No Exposed to someone with COVID-19 in past 14 days?: No Do you have a sore throat?: No Do you have a cough?: No Do you have any weakness?: No Do you have any diarrhea?: No Are you experiencing any unusual bleeding?: No Do you have any muscle aches/pain?: No Do you have any abdominal pain?: No Are you experiencing loss of taste or smell?: No PM Subjective & Objective Subjective Subjective:: Patient is a pleasant 68-year-old female who presents today for her monthly medication refill. Patient is currently managed with [place] 10 mg 4 times a day and gabapentin 300 mg 3 times a day. She is also prescribed compounded cream. She denies any side effects to any of these medications or any changes to her pharmacy. She states overall she is still doing really well. Her [place]bal[place] has been reviewed and is appropriate. Review of Systems: General: No recent weight changes, no fever, no sleep disturbances Respiratory: No cough, no shortness of air, no recurring pulmonary infections Cardiovascular/peripheral vascular: No chest pain, no palpitations, no edema, no shortness of breath Gastrointestinal: No new onset incontinence, normal bowel movements reported Genitourinary: No new onset incontinence Musculoskeletal: Low back pain Psychiatric: [Normal mood/affect] Neurological: [Denies weakness in extremities], [denies balance issues] Pain at rest (0-10 scale): 3 Objective Objective:: Physical Exam: General: Alert and oriented x3, no acute distress, pleasant and cooperative Lungs: Respirations even and unlabored, symmetrical chest expansion Eyes: PERRL Musculoskeletal: Flexion and extension of lumbar [spine] somewhat guarded secondary to pain, [antalgic gait noted] Neurological: Speech clear, no gross sensory deficit Has patient had previous pain injection?: No Conservative treatment options previously tried: Prescription medications Length of treatment: Longer than 12 weeks Meds Home Medications and Allergies Home Medications ?Medication ?Instructions ?Recorded ?Confirmed ?Type hydrochlorothiazide 25 mg tablet 25 mg PO DAILY fluid 05/14/21 07/01/24 History methimazole 10 mg tablet 10 mg PO DAILY thyroid 05/14/21 07/01/24 History moexipril 15 mg tablet 15 mg PO DAILY bp 05/14/21 07/01/24 History omeprazole 20 mg capsule,delayed 20 mg PO DAILY GERD 05/14/21 07/01/24 History release propranolol 80 1 each PO DAILY bp 05/14/21 07/01/24 History mg-hydrochlorothiazide 25 mg tablet gabapentin 100 mg capsule 100 mg PO TID Pain #90 caps 07/01/24 Rx hydrocodone 10 mg-acetaminophen 1 tab PO QID Pain #120 tabs 07/01/24 Rx 325 mg tablet New Prescriptions to Start Prescriptions: Allergies Allergy/AdvReac Type Severity Reaction Status Date / Time ciprofloxacin (From CIPRO) Allergy Unknown I-RASH Verified 01/29/24 08:42 Sulfa (Sulfonamide Allergy Unknown I-RASH Verified 01/29/24 08:42 Antibiotics) (SULFA (SULFONAMIDE ANTIBIOTICS)) Assessment and Plan *Assessment and plan (1) Lumbar radiculopathy: Status: Acute Category: Medical Code(s): M54.16 - Radiculopathy, lumbar region (2) Degenerative disc disease, lumbar: Status: Acute Category: Medical Code(s): M51.369 - Other intervertebral disc degeneration, lumbar region without mention of lumbar back pain or lower extremity pain Plan I will refill her gabapentin and [place] and provide a 1 month supply of this medications. Patient will return to clinic in 1 month. Risks and benefits of the medication have been explained in detail to the patient. The patient does understand the risk of dependence on the medication when given over a prolonged period. Patient has been advised of risks of oversedation with the prescribed medication. Narcan has been offered to the paitent in the event of oversedation. Patient has been advised that a family member should also be educated regarding administration of Narcan. The patient has been advised to consult with his/her primary care provider and pharmacist regarding drug-drug interaction of medications currently prescribed. Patient has been prescribed a controlled substance after being counseled on the medication, medication safety, and possible side effects. Opioid contract was reviewed and signed by the patient, and that they have agreed to all of the terms set forth by our compliance program. A UDS is needed to verify patient's compliance with our office pain contract. This is ordered based off specific treatments related to chronic pain with the potential to abuse certain medications. Patient has been instructed to contact the clinic with any concerns before the next appointment. Dr. Beth has reviewed this note and agrees with this plan of care. This note was dictated using voice recognition software and make contain errors or omissions.
[2024-07-29 10:56] VITALS: BP 137/72; PULSE 74; RESP 16; O2SAT 95; BMI 36.8
== END 2024-07-29 23:59 | disposition home or self-care (01) ==
PROVIDERS: PCP Nurse Practitioner; Visit Provider Nurse Practitioner Family
DX: M51.16 Intervertebral disc disorders with radiculopathy, lumbar region (principal)
CPT/HCPCS: 99212; G0463

== ENCOUNTER 2024-08-26 10:03 | Outpatient (POV) | payer MEDICARE, BC, SELFPAY ==
[2024-08-26 10:13] VITALS: BP 135/84; PULSE 78; RESP 14; O2SAT 97; BMI 36.3
--- NOTE | 2024-08-26 10:18 | EXP.PAIN.SOA ---
[facility] Disclaimer: The information contained in this section may have been updated after the patient was seen, as this information can be updated by other users. Medical History High blood pressure Social History Smoking Status: Unknown if ever smoked alcohol intake: never substance use type: denies use current occupational status: other Travel in the last 8 weeks: None PM Subjective & Objective Subjective Subjective:: Patient is a pleasant 68-year-old female who presents today for her monthly follow-up and medication refill. She rates her pain a 3 out of 10. She denies any new changes from our last appointment. Patient is currently managed with [place] 10 mg 4 times a day and gabapentin 300 mg 3 times a day. She denies any side effects. Her [place]baldo has been reviewed and is appropriate. Review of Systems: General: No recent weight changes, no fever, no sleep disturbances Respiratory: No cough, no shortness of air, no recurring pulmonary infections Cardiovascular/peripheral vascular: No chest pain, no palpitations, no edema, no shortness of breath Gastrointestinal: No new onset incontinence, normal bowel movements reported Genitourinary: No new onset incontinence Musculoskeletal: Low back pain Psychiatric: [Normal mood/affect] Neurological: [Denies weakness in extremities], [denies balance issues] Pain at rest (0-10 scale): 3 Objective Objective:: Physical Exam: General: Alert and oriented x3, no acute distress, pleasant and cooperative Lungs: Respirations even and unlabored, symmetrical chest expansion Eyes: PERRL Musculoskeletal: Flexion and extension of lumbar [spine] somewhat guarded secondary to pain, [antalgic gait noted] Neurological: Speech clear, no gross sensory deficit Has patient had previous pain injection?: No Conservative treatment options previously tried: Home exercise plan Length of treatment: Longer than 12> weeks and Prescription medications Length of treatment: Longer than 12 weeks Meds Home Medications and Allergies Home Medications ?Medication ?Instructions ?Recorded ?Confirmed ?Type hydrochlorothiazide 25 mg tablet 25 mg PO DAILY fluid 05/14/21 08/26/24 History methimazole 10 mg tablet 10 mg PO DAILY thyroid 05/14/21 08/26/24 History moexipril 15 mg tablet 15 mg PO DAILY bp 05/14/21 08/26/24 History omeprazole 20 mg capsule,delayed 20 mg PO DAILY GERD 05/14/21 08/26/24 History release propranolol 80 1 each PO DAILY bp 05/14/21 08/26/24 History mg-hydrochlorothiazide 25 mg tablet gabapentin 100 mg capsule 100 mg PO TID Pain #90 caps 07/29/24 08/26/24 Rx hydrocodone 10 mg-acetaminophen 1 tab PO QID Pain #120 tabs 07/29/24 08/26/24 Rx 325 mg tablet New Prescriptions to Start Prescriptions: Allergies Allergy/AdvReac Type Severity Reaction Status Date / Time ciprofloxacin (From CIPRO) Allergy Unknown I-RASH Verified 01/29/24 08:42 Sulfa (Sulfonamide Allergy Unknown I-RASH Verified 01/29/24 08:42 Antibiotics) (SULFA (SULFONAMIDE ANTIBIOTICS)) Assessment and Plan *Assessment and plan (1) Lumbar radiculopathy: Status: Acute Category: Medical Code(s): M54.16 - Radiculopathy, lumbar region (2) Degenerative disc disease, lumbar: Status: Acute Category: Medical Code(s): M51.369 - Other intervertebral disc degeneration, lumbar region without mention of lumbar back pain or lower extremity pain Plan Patient continues to do well with her current regimen. I will refill her gabapentin and her [place] and provide a 1 month supply of these medications. Patient will return to clinic in 1 month for reevaluation of symptoms and plan of care. Risks and benefits of the medication have been explained in detail to the patient. The patient does understand the risk of dependence on the medication when given over a prolonged period. Patient has been advised of risks of oversedation with the prescribed medication. Narcan has been offered to the paitent in the event of oversedation. Patient has been advised that a family member should also be educated regarding administration of Narcan. The patient has been advised to consult with his/her primary care provider and pharmacist regarding drug-drug interaction of medications currently prescribed. Patient has been prescribed a controlled substance after being counseled on the medication, medication safety, and possible side effects. Opioid contract was reviewed and signed by the patient, and that they have agreed to all of the terms set forth by our compliance program. A UDS is needed to verify patient's compliance with our office pain contract. This is ordered based off specific treatments related to chronic pain with the potential to abuse certain medications. Patient has been instructed to contact the clinic with any concerns before the next appointment. Dr. Beth has reviewed this note and agrees with this plan of care. This note was dictated using voice recognition software and make contain errors or omissions.
== END 2024-08-26 23:59 | disposition home or self-care (01) ==
PROVIDERS: PCP Nurse Practitioner; Visit Provider Nurse Practitioner Family
DX: M51.16 Intervertebral disc disorders with radiculopathy, lumbar region (principal)
CPT/HCPCS: 99212; G0463

== ENCOUNTER 2024-09-23 08:30 | Outpatient (POV) | payer MEDICARE, BC, SELFPAY ==
--- NOTE | 2024-09-23 08:40 | EXP.PAIN.SOA ---
[facility] Disclaimer: The information contained in this section may have been updated after the patient was seen, as this information can be updated by other users. Medical History High blood pressure Social History Smoking Status: Unknown if ever smoked alcohol intake: never substance use type: denies use current occupational status: other Travel in the last 8 weeks?: None PM Subjective & Objective Subjective Subjective:: Patient is a pleasant 68-year-old female who presents today for medication refill. Today she rates her pain a 3 out of 10. She denies any new falls or injuries. 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 Patient is currently managed with Humacao 10 mg 4 times a day and gabapentin 100 mg 3 times a day from our office. She denies any side effects. Her Osbaldo has been reviewed and is appropriate. Review of Systems: General: No recent weight changes, no fever, no sleep disturbances Respiratory: No cough, no shortness of air, no recurring pulmonary infections Cardiovascular/peripheral vascular: No chest pain, no palpitations, no edema, no shortness of breath Gastrointestinal: No new onset incontinence, normal bowel movements reported Genitourinary: No new onset incontinence Musculoskeletal: Chronic back pain Psychiatric: [Normal mood/affect] Neurological: [Denies weakness in extremities], [denies balance issues] Pain at rest (0-10 scale): 3 Objective Objective:: Physical Exam: General: Alert and oriented x3, no acute distress, pleasant and cooperative Lungs: Respirations even and unlabored, symmetrical chest expansion Eyes: PERRL Musculoskeletal: Flexion and extension of lumbar [spine] somewhat guarded secondary to pain Neurological: Speech clear, no gross sensory deficit Has patient had previous pain injection?: No Conservative treatment options previously tried: Prescription medications Length of treatment: Longer than 12 weeks Meds Home Medications and Allergies Home Medications ?Medication ?Instructions ?Recorded ?Confirmed ?Type hydrochlorothiazide 25 mg tablet 25 mg PO DAILY fluid 05/14/21 08/26/24 History methimazole 10 mg tablet 10 mg PO DAILY thyroid 05/14/21 08/26/24 History moexipril 15 mg tablet 15 mg PO DAILY bp 05/14/21 08/26/24 History omeprazole 20 mg capsule,delayed 20 mg PO DAILY GERD 05/14/21 08/26/24 History release propranolol 80 1 each PO DAILY bp 05/14/21 08/26/24 History mg-hydrochlorothiazide 25 mg tablet gabapentin 100 mg capsule 100 mg PO TID Pain #90 caps 09/23/24 Rx hydrocodone 10 mg-acetaminophen 1 tab PO QID Pain #120 tabs 09/23/24 Rx 325 mg tablet New Prescriptions to Start Prescriptions: gabapentin Beck,Natty A hydrocodone-acetaminophen Beck,Natty A Allergies Allergy/AdvReac Type Severity Reaction Status Date / Time ciprofloxacin (From CIPRO) Allergy Unknown I-RASH Verified 01/29/24 08:42 Sulfa (Sulfonamide Allergy Unknown I-RASH Verified 01/29/24 08:42 Antibiotics) (SULFA (SULFONAMIDE ANTIBIOTICS)) Assessment and Plan *Assessment and plan (1) Lumbar radiculopathy: Status: Acute Category: Medical Code(s): M54.16 - Radiculopathy, lumbar region (2) Degenerative disc disease, lumbar: Status: Acute Category: Medical Code(s): M51.369 - Other intervertebral disc degeneration, lumbar region without mention of lumbar back pain or lower extremity pain Plan I will refill her Humacao and gabapentin and provide a 1 month supply of these medications. Patient will return to clinic in 1 month for reevaluation of symptoms and plan of care. Risks and benefits of the medication have been explained in detail to the patient. The patient does understand the risk of dependence on the medication when given over a prolonged period. Patient has been advised of risks of oversedation with the prescribed medication. Narcan has been offered to the paitent in the event of oversedation. Patient has been advised that a family member should also be educated regarding administration of Narcan. The patient has been advised to consult with his/her primary care provider and pharmacist regarding drug-drug interaction of medications currently prescribed. Patient has been prescribed a controlled substance after being counseled on the medication, medication safety, and possible side effects. Opioid contract was reviewed and signed by the patient, and that they have agreed to all of the terms set forth by our compliance program. A UDS is needed to verify patient's compliance with our office pain contract. This is ordered based off specific treatments related to chronic pain with the potential to abuse certain medications. Patient has been instructed to contact the clinic with any concerns before the next appointment. Dr. Beth has reviewed this note and agrees with this plan of care. This note was dictated using voice recognition software and make contain errors or omissions.
[2024-09-23 09:25] VITALS: BP 124/72; PULSE 71; RESP 14; O2SAT 96; BMI 36.0
== END 2024-09-23 23:59 | disposition home or self-care (01) ==
PROVIDERS: PCP Nurse Practitioner; Visit Provider Nurse Practitioner Family
DX: M51.16 Intervertebral disc disorders with radiculopathy, lumbar region (principal)
CPT/HCPCS: 99212; G0463

== ENCOUNTER 2024-10-21 09:43 | Outpatient (POV) | payer MEDICARE, BC, SELFPAY ==
--- OUTSIDE RECORDS SUMMARY | 2024-08-28 09:00 | XMS_ITS | Encounter Summary ---
Author Organization [place] [address] Care Team Providers Care Lead Pourer Name Role Phone Elizabeth Allen MD Unavailable Doug Beth MD Unavailable Zane Morris APRN Primary Care Provider [phone] Reason for Referral * Medication Prior Authorization - Denied Specialty Diagnoses / Procedures Referred By Contac t Referred To Contact Diagnoses Obesity, Class II, BMI 35-39.9 Annette Chan MD [address] [place] [address] Phone: tel: fax: Referral ID Status Reason Start Date Expiration Date Visits Re quested Visits Authorized [id number] Denied 1 1 Reason for Visit * Reason Comments Dysuria Encounter Details Date Type Department Care Team (Late st Contact Info) Description 08/28/2024 9:00 AM EDT Office Visit [facility] [address] [place] [address] Annette Chan MD [address] [place] [address] Dysuria (Primary Dx); Chronic obstructive pulmonary disease, unspecified COPD type (HCC); Severe obesity with body mass index (BMI) of 35.0 to 39.9 with comorbidity (HCC); UTI (urinary tract infection), uncomplicated; Obesity, Class II, BMI 35-39.9; Flank pain; Statin myopathy Social History Tobacco Use Types Packs/Day Years Used Date Smoking Tobacco: Never Passive Smoke Exposure: Never Smokeless Tobacco: Never Tobacco Cessation:Counseling Given: Not Answered Alcohol Use Standard Drinks/Week Comments No 0 (1 standard drink = 0.6 oz pur e alcohol) PHQ-2 Answer Date Recorded PHQ-2 Total Score 0 08/28/2024 Sexually Active Control Partners Comments Not Currently Male Comments No Sex and Gender Information Value Date Recorded Sex Assigned at Not on file Legal Sex Female 3:29 PM EDT Gender Identity Not on file Sexual Orientation Not on file documented as of this encounter Last Filed Vital Signs Vital Sign Reading Time Taken Comments Blood Pressure 128/76 08/28/2024 9:22 AM EDT Pulse - - Temperature 36.8 C (98.2 F) 08/28/2024 9:22 AM EDT Respiratory Rate - - Oxygen Saturation - - Inhaled Oxygen Concentration - - Weight 97.5 kg (215 lb) 08/28/2024 9:22 AM EDT Height 162.6 cm (5' 4 ) 08/28/2024 9:22 AM EDT Body Mass Index 36.9 08/28/2024 9:22 AM EDT documented in this encounter Functional Status * Cognitive and Functional Status Question Answer Date of Assessment Author Is the person deaf or does he/she have serious difficulty hearing? No 08/28/2024 9:20 AM EDT Leslie Ashley RMA Is the person blind or does he/she have serious difficulty seeing even when wearing glasses? No 08/28/2024 9:20 AM EDT Leslie Ashley RMA Does this person have seriou s difficulty walking or climbing stairs? No 08/28/2024 9:20 AM EDT Leslie Ashley RMA Does this person have difficulty dressing or bathing? No 08/28/2024 9:20 AM EDT Leslie Ashley RMA * Is the person deaf or does he/she have serious difficulty hearing? Answer Date of Assessment Author No 08/28/2024 9:20 AM EDT Leslie Ashley RMA * Is the person blind or does he/she have serious difficulty seeing even when wearing glasses? Answer Date of Assessment Author No 08/28/2024 9:20 AM EDT Leslie Ashley RMA * Does this person have serious difficulty walking or climbing stairs? Answer Date of Assessment Author No 08/28/2024 9:20 AM EDT Leslie Ashley RMA * Does this person have difficulty dressing or bathing? Answer Date of Assessment Author No 08/28/2024 9:20 AM Leslie Quiñones RMA * Because of a physical, mental or emotional condition, does this person have difficulty doing errands alone such as visiting a doctor's office or shopping? Answer Date of Assessment Author No 08/28/2024 9:20 AM EDLeslie Morfin RMA * PHQ-9 Total Score Answer Date of Assessment Author 0 08/28/2024 9:20 AM Leslie Quiñones RMA * Question Answer Date of Assessment Author Little interest or pleasure in doing things 0 08/28/2024 9:20 AM Leslie Quiñones RMA Feeling down, depressed, or hopeless 0 08/28/2024 9:20 AM EDLeslie Morfin RMA PHQ-2 Total Score 0 08/28/2024 9:20 AM EDLeslie Morfin RMA * Question Answer Date of Assessment Author Feeling Nervous, Anxious, or on Edge 0 08/28/2024 9:20 AM Leslie Quiñones RMA Not Being Able to Stop or Control Worrying 0 08/28/2024 9:20 AM Leslie Quiñones RMA Worrying too Much About Different Things 0 08/28/2024 9:20 AM Leslie Quiñones RMA Trouble Relaxing 0 08/28/2024 9:20 AM EDT Leslie Vazquez RMA Being so Restless That it is Hard to Sit Still 0 08/28/2024 9:20 AM EDT Leslie Ashley RMA Becoming Easily Annoyed or Irritable 0 08/28/2024 9:20 AM EDLeslie Morfin RMA Feeling Afraid as if Something Awful Might Happen 0 08/28/2024 9:20 AM Leslie Quiñones RMA EMILY-7 Total Score 0 08/28/2024 9:20 AM EDLeslie Morfin RMA documented as of this encounter Mental Status * Cognitive and Functional Status Question Answer Entry Date Author Because of a physical, menta l or emotional condition, does this person have difficulty doing errands alone such as visiting a doctor's office or shopping? No 08/28/2024 9:20 AM EDLeslie Morfin RMA Because of a physical, menta l or emotional condition, does this person have serious difficulty concentrating, remembering or making decisions? No 08/28/2024 9:20 AM EDLeslie Morfin RMA * Because of a physical, mental or emotional condition, does this person have serious difficulty concentrating, remembering or making decisions? Answer Entry Date Author No 08/28/2024 9:20 AM Leslie Quiñones RMA documented in this encounter Ordered Prescriptions Prescription Sig Dispense Quantity Refills Last Filled Start Date End Date metFORMIN (GLUCOPHAGE XR) 500 mg Oral ER 24 hr tablet Take 1 Tablet by mouth daily (with breakfast). 90 Tablet 1 08/28/2024 semaglutide, weight loss, (WEGOVY) 0.5 mg/0.5 mL SubQ Pen InjectorIndication s:Obesity, Class II, BMI 35-39.9 Subcutaneous (Inject under the skin) 0.5 mg once a week for 4 doses. 2 mL 6 08/28/2024 09/20/19 25 fluconazole (DIFLUCAN) 150 mg Oral TabletIndications: UTI (urinary tract infection), uncomplicated Take 1 Tablet by mouth once for 1 dose. 1 Tablet 08/28/2024 08/29/19 25 phenazopyridine (PYRIDIUM) 200 mg Oral TabletIndications: UTI (urinary tract infection), uncomplicated Take 1 Tablet by mouth 3 times daily as needed for up to 2 days. 6 Tablet 08/28/2024 08/31/19 25 cephALEXin (KEFLEX) 500 mg Oral CapsuleIndications :UTI (urinary tract infection), uncomplicated Take 1 Capsule by mouth every 8 hours for 10 days. 30 Capsule 08/28/2024 09/08/19 25 documented in this encounter Progress Notes * Annette Chan MD - 08/28/2024 9:00 AM EDTAssociated Problem(s): COPD (chronic obstructive pulmonary disease) (HCC) stable * Annette Chan MD - 08/28/2024 9:00 AM EDTAssociated Problem(s): Severe obesity with body mass index (BMI) of 35.0 to 39.9 with comorbidity (HCC) stable * Annette Chan MD - 08/28/2024 9:00 AM EDT Vitals: 08/28/24 0922 BP: 128/76 Temp: 98.2 ??F (36.8 ??C) Weight: 215 lb (97.5 kg) Height: 5' 4 (1.626 m) Body mass index is 36.9 kg/m??. SUBJECTIVE: Chief Complaint Patient presents with Dysuria HPI: Dysuria This is a new problem. The current episode started in the past 7 days. The problem occurs every urination. The problem has been unchanged. Associated symptoms include flank pain. Pt is here today for dysuria that has been present for 2 days Hypertension: Home reporting of hypertension was reviewed at time of visit. Snow denies any episodes of dizziness, lightheadedness, presyncope, syncope, headache, or chest pain. Snow does not report any new symptoms of possible hypertension sequelae. The patient reports that she is not having significant issues or side effects of current medications/treatments. Review of Systems Constitutional: Negative. HENT: Negative. Respiratory: Negative. Cardiovascular: Negative. Gastrointestinal: Negative. Genitourinary: Positive for dysuria and flank pain. Neurological: Negative. Hematological: Negative. Psychiatric/Behavioral: Negative. OBJECTIVE: Physical Exam Vitals and nursing note reviewed. HENT: Head: Normocephalic. Cardiovascular: Rate and Rhythm: Normal rate. Heart sounds: No murmur heard. Pulmonary: Effort: Pulmonary effort is normal. Breath sounds: No wheezing. Abdominal: Palpations: Abdomen is soft. Neurological: General: No focal deficit present. Mental Status: She is alert. Assessment & Plan Dysuria Orders: URINE CULTURE (NO STAIN); Future Chronic obstructive pulmonary disease, unspecified COPD type (HCC) stable Severe obesity with body mass index (BMI) of 35.0 to 39.9 with comorbidity (HCC) stable UTI (urinary tract infection), uncomplicated Orders: cephALEXin (KEFLEX) 500 mg Oral Capsule; Take 1 Capsule by mouth every 8 hours for 10 days. cefTRIAXone (ROCEPHIN) injection 1 g Obesity, Class II, BMI 35-39.9 Orders: semaglutide, weight loss, (WEGOVY) 0.5 mg/0.5 mL SubQ Pen Injector; Subcutaneous (Inject under the skin) 0.5 mg once a week for 4 doses. Flank pain Orders: XR ABDOMEN AP; Future Statin myopathy documented in this encounter Plan of Treatment Upcoming Encounters Date Type Department Care Team (Late st Contact Info) Description 01/03/2025 3:00 PM EDT Telemedicine SEP Diabetes [address] [address] Elizabeth Allen MD [address] [address] documented as of this encounter Goals Goal Patient Goal Type Associated Problems Recent Progress Patient-Stated? Author Blood Pressure < 140/90 Blood Pressure 118/76(2024 8:05 AM EDT) No Nathalie De La Torre RMA Maintain a healthy diet, exercise regularly and maintain an ideal body weight General No Mckenna Danielle RMA documented as of this encounter Procedures Procedure Name Priority Date/Time Associated Diagnosis Comments URINE CULTURE (NO STAIN) Routine 08/28/2024 9:29 AM EDT Dysuria SEP URINALYSIS POC Routine 08/28/2024 9: 25 AM EDT Dysuria documented in this encounter Results * XR ABDOMEN AP (08/28/2024 3:24 PM EDT) Anatomical Region Laterality Modality Abdomen Radiographic Carolina ging 08/28/2024 3:24 PM EDT Impressions 08/28/2024 3:33 PM EDT Nonobstructive bowel gas pattern. If the patient has recurrent flank pain or hematuria, consider follow-up abdominal/pelvic renal stone protocol CT imaging in this patient. - Note: Radiology results need to be interpreted within a comprehensive clinical context. If you have questions about the radiology report, please contact the office of the ordering clinician. Narrative 08/28/2024 3:33 PM EDT CR, ABDOMEN AP, 08/28/2024 3:24 PM CLINICAL HISTORY: R10.9-Unspecified abdominal [id number] COMPARISON: No comparison KUB studies. PROCEDURE COMMENTS: AP view(s) of the abdomen per protocol. FINDINGS: Prior cholecystectomy. Nonobstructive bowel gas pattern. No dominant renal calcifications. Diffuse levoconvex lumbar curvature. Multiple lower right paraspinal phleboliths. Multiple scattered pelvic phleboliths. Procedure Note Gavin Cortez DO - 08/28/2024 CR, ABDOMEN AP, 08/28/2024 3:24 PM CLINICAL HISTORY: R10.9-Unspecified abdominal [id number] COMPARISON: No comparison KUB studies. PROCEDURE COMMENTS: AP view(s) of the abdomen per protocol. FINDINGS: Prior cholecystectomy. Nonobstructive bowel gas pattern. No dominantrenal calcifications. Diffuse levoconvex lumbar curvature. Multiple lowerright paraspinal phleboliths. Multiple scattered pelvic phleboliths. IMPRESSION: Nonobstructive bowel gas pattern. If the patient has recurrent flank pain or hematuria, consider follow-up abdominal/pelvic renal stone protocol CT imaging in this patient. - Note: Radiology results need to be interpreted within a comprehensiveclinical context. If you have questions about the radiology report, please contactthe office of the ordering clinician. us Annette Chan MD IMG DIAGNOSTIC IMAGING ORDERAB LES Final Result * (ABNORMAL) URINE CULTURE (NO STAIN) (08/28/2024 9:29 AM EDT) Culture Positive Growth(A) 08/30/2024 10:38 AM EDT PREFERRED LAB [employer] [employer] Culture >100,000 CFU/mL Escherichia coli SUSCEPTIBI LITY RESULT 08/30/2024 10:38 AM EDT [facility] Urine URINARY BLADDER STRUCTURE / Unknown 08/28/2024 9:29 AM EDT 08/28/2024 9:29 AM EDT Narrative Organism Antibiotic Method Susceptibility Escherichia coli Amikacin SUSCEPTIBILITY RESULT Escherichia coli Amoxicillin/Clavulanate SUSCEPTIBILIT Y RESULT <=8/4 ug/mL: Susceptible Escherichia coli Ampicillin SUSCEPTIBILITY RESULT >16 ug/mL: Resistant Escherichia coli Ampicillin/Sulbactam SUSCEPTIBILITY R ESULT >16/8 ug/mL: Resistant Escherichia coli Aztreonam SUSCEPTIBILITY RESULT <=4 ug/mL: Susceptible Escherichia coli Cefazolin SUSCEPTIBILITY RESULT <=2 ug/mL: Susceptible Escherichia coli Cefepime SUSCEPTIBILITY RESULT Escherichia coli Cefotaxime SUSCEPTIBILITY RESULT Escherichia coli Cefoxitin SUSCEPTIBILITY RESULT <=8 ug/mL: Susceptible Escherichia coli Ceftazidime SUSCEPTIBILITY RESULT Escherichia coli Ceftazidime/Avibactam SUSCEPTIBILITY RESULT Escherichia coli Ceftolozane/Tazobactam SUSCEPTIBILITY RESULT Escherichia coli Ceftriaxone SUSCEPTIBILITY RESULT Escherichia coli Cefuroxime SUSCEPTIBILITY RESULT Escherichia coli Ciprofloxacin SUSCEPTIBILITY RESULT <=0.25 ug/mL: Susceptible Escherichia coli Ertapenem SUSCEPTIBILITY RESULT <=0.5 ug/mL: Susceptible Escherichia coli Gentamicin SUSCEPTIBILITY RESULT <=2 ug/mL: Susceptible Escherichia coli Imipenem SUSCEPTIBILITY RESULT <=1 ug/mL: Susceptible Escherichia coli Levofloxacin SUSCEPTIBILITY RESULT <=0.5 ug/mL: Susceptible Escherichia coli Meropenem SUSCEPTIBILITY RESULT <=1 ug/mL: Susceptible Escherichia coli Meropenem/Vaborbactam SUSCEPTIBILITY RESULT Escherichia coli Minocycline SUSCEPTIBILITY RESULT Escherichia coli Moxifloxacin SUSCEPTIBILITY RESULT Escherichia coli Nitrofurantoin SUSCEPTIBILITY RESULT <=32 ug/mL: Susceptible Escherichia coli Piperacillin/Tazobactam SUSCEPTIBILIT Y RESULT <=8 ug/mL: Susceptible Escherichia coli Tetracycline SUSCEPTIBILITY RESULT >8 ug/mL: Resistant Escherichia coli Tigecycline SUSCEPTIBILITY RESULT Escherichia coli Tobramycin SUSCEPTIBILITY RESULT <=2 ug/mL: Susceptible Escherichia coli Trimethoprim/Sulfame tho xazole SUSCEPTIBILITY RESULT >2/38 ug/mL: Resistant us Annette Chan MD MICROBIOLOGY - GENERAL ORDERAB LES Final Result PREFERRED LAB [facility] [address] [facility] , [address] [place] [id number] * (ABNORMAL) SEP URINALYSIS POC (08/28/2024 9:25 AM EDT) UA Color POC Yellow Color 08/28/2024 9:28 AM EDT SEP [facility] UA Appear POC Clear Clear 08/28/2024 9:28 AM EDT SEP [facility] UA Gluc POC Negative Negative mg/dL 08/28/2024 9:28 AM EDT SEP [facility] UA Bili POC Negative Negative 08/28/2024 9:28 AM EDT SEP [facility] UA Ketones POC Negative Negative mg/dL 08/28/2024 9:28 AM EDT [facility]P [facility] UA SG POC 1.025 1.001 - 1.035 no units 08/28/2024 9:28 AM EDT [facility] UA Blood POC Large(A) Negative 08/28/2024 9:28 AM EDT [facility] UA pH POC 5.5 5.0 - 8.0 pH 08/28/2024 9:28 AM EDT [facility] Protein POC Negative Negative mg/dL 08/28/2024 9:28 AM EDT [facility]A Urobilinogen POC 0.2 0.2, 1.0 08/28/2024 9:28 AM EDT [facility] Nitrite POC Negative Negative 08/28/2024 9:28 AM EDT [facility]P [facility] UA Leuk Est POC Small(A) Negative 9:28 AM EDT [facility] Urine STRUCTURE OF URINARY TRACT PROPER / Unknown 08/28/2024 9:25 AM EDT 08/28/2024 9:28 AM EDT us Annette Chan MD POINT OF CARE TEST ORDERABLES Final Result [address] [address] documented in this encounter Visit Diagnoses Diagnosis Dysuria- Primary Chronic obstructive pulmonary disease, unspecified COPD type (HCC) Severe obesity with body mass index (BMI) of 35.0 to 39.9 with comorbidity (HCC) UTI (urinary tract infection), uncomplicated Urinary tract infection, site not specified Obesity, Class II, BMI 35-39.9 Obesity, unspecified Flank pain Abdominal pain, unspecified site Statin myopathy Toxic myopathy Flank pain Abdominal pain, unspecified site documented in this encounter Administered Medications Inactive Administered Medications - up to 1 most recent administrations Medication Order MAR Action Action Date Dose Rate Site cefTRIAXone (ROCEPHIN) injection 1 g 1 g, Intramuscular, ONCE, 1 dose, On 08/28/24 at 1000, Dx: 1. UTI (urinary tract infection), uncomplicatedIndications:U TI (urinary tract infection), uncomplicated Given 08/28/2024 10:10 AM EDT 1 g Right Upper Outer Quadrant documented in this encounter Discontinued Medications Medication Sig Discontinue Reason Start Date End Da te semaglutide, weight loss, (WEGOVY) 0.5 mg/0.5 mL SubQ Pen InjectorIndications:O besity, Class II, BMI 35-39.9 Subcutaneous (Inject under the skin) 0.5 mg once a week for 4 doses. Reorder 07/29/2024 08/28/2024 documented as of this encounter Additional Health Concerns Assessment Noted Time A fall risk assessment has been complete d for the patient 04/13/2024 4:08 PM EST documented as of this encounter Care Teams Lead Pourer Relationship Specialty Start Date End Date Zane Morris APRN [address] [place] [address] PCP - General Nurse Practitioner 03/28/23 Elizabeth Allen MD [address] [address] Internal Medicine-Endocrinology, Diabetes & Metabolism 06/06/14 Doug Beth MD [address] [place] [id number] Consulting Physician Anesthesiology 01/18/19 documented as of this encounter
--- OUTSIDE RECORDS SUMMARY | 2024-08-28 14:45 | XMS_ITS | Encounter Summary ---
Author Organization [place] [address] Care Team Providers Care Light Truck Driver Name Role Phone Elizabeth Allen MD Unavailable Doug Beth MD Unavailable Zane Morris APRN Primary Care Provider [phone] Encounter Details Date Type Department Care Team (Latest Contact Info) Description 08/28/2024 2:45 PM EDT - 08/28/2024 11:59 PM EDT Hospital Encounter GRT XRAY [address] [place] [address] Flank pain Discharge Disposition: Home or Self Care Social History Tobacco Use Types Packs/Day Years Used Date Smoking Tobacco: Never Passive Smoke Exposure: Never Smokeless Tobacco: Never Alcohol Use Standard Drinks/Week Comments No 0 [...] on file documented as of this encounter Functional Status * Cognitive and Functional Status Question Answer Date of Assessment Author Is the person deaf or does he/she have serious difficulty hearing? No 08/28/2024 9:20 AM EDLeslie Morfin RMA Is the person blind or does [...] 08/28/2024 9:20 AM EDLeslie Morfin RMA * Is the person blind or does he/she have serious difficulty seeing even when wearing glasses? Answer Date of Assessment Author No 08/28/2024 9:20 AM EDLeslie Morfin RMA * Does this person have serious difficulty walking or climbing stairs? Answer Date of Assessment Author No 08/28/2024 9:20 AM Leslie Quiñones RMA * Does this person have difficulty [...] in doing things 0 08/28/2024 9:20 AM EDLeslie Morfin RMA Feeling down, depressed, or hopeless 0 08/28/2024 9:20 AM EDT Leslie Ashley RMA PHQ-2 Total Score 0 08/28/2024 9:20 AM EDT Leslie Ashley RMA * Question Answer Date of Assessment Author Feeling Nervous, Anxious, or on Edge 0 08/28/2024 9:20 AM EDT Leslie Ashley RMA Not Being Able to Stop or Control Worrying 0 08/28/2024 9:20 AM EDT Leslie Ashley RMA Worrying too Much About Different Things 0 08/28/2024 9:20 AM EDT Leslie Ashley RMA Trouble Relaxing 0 08/28/2024 9:20 AM EDT Leslie Vazquez RMA Being so Restless That it is Hard to Sit Still 0 08/28/2024 9:20 AM EDT Leslie Ashley RMA Becoming Easily Annoyed or Irritable 0 08/28/2024 9:20 AM EDT Leslie Ashley RMA Feeling Afraid as if Something Awful Might Happen 0 08/28/2024 9:20 AM EDLeslie Morfin RMA EMILY-7 Total Score 0 08/28/2024 9:20 AM EDT Leslie Ashley RMA documented as of this encounter Mental [...] or making decisions? No 08/28/2024 9:20 AM EDT Leslie Ashley RMA * Because of a physical, mental or emotional condition, does this person have serious difficulty concentrating, remembering or making decisions? Answer Entry Date Author No 08/28/2024 9:20 AM EDLeslie Morfin RMA documented in this encounter Medications at Time of Discharge albuterol (PROVENTIL HFA;VENTOLIN HFA) 90 mcg/actuation Inhl HFA Aerosol InhalerIndications :Acute bronchitis, unspecified organism,COVID-19 virus detected INHALE 2 PUFFS INTO THE LUNGS EVERY 4 HOURS NEEDED FOR WHEEZING. 8.5 g 2 01/30/2024 aspirin 81 mg Oral Capsule Take 81 mg by mouth daily. cetirizine (ZYRTEC) 10 mg Oral Tablet Take 10 mg by mouth daily. Cholecalciferol, Vitamin D3, 50 mcg (2,000 unit) Oral Capsule Take 4,000 Units by mouth daily. Liqiud-pt takes 4 drops fluticasone propionate (FLONASE) 50 mcg/actuation Nasl Everson, SuspensionIndicati ons:Nasal congestion 1 Everson by Nasal route daily. 1 Bottle 12/05/2020 gabapentin (NEURONTIN) 100 mg Oral Capsule Take 100 mg by mouth 3 times daily. 04/07/2017 guaiFENesin (MUCINEX) 600 mg Oral Tablet Extended Release 12hr Take 1,200 mg by mouth 2 times daily. hydroCHLOROthiazid e 25 mg Oral TabletIndications: Essential hypertension Take 1 Tablet by mouth daily. 90 Tablet 3 04/13/2024 HYDROcodone-acetam inophen (NORCO) 10-325 mg Oral Tablet Take 1 Tablet by mouth every 6 hours as needed for Acute Pain (R52). 12/07/2023 ipratropium (ATROVENT) 21 mcg (0.03 %) Nasl Everson, Non-Aerosol 2 SPRAYS BY NASAL ROUTE 3 TIMES DAILY. 30 mL 10/11/2023 lisinopriL (PRINIVIL;ZESTRIL) 10 mg Oral TabletIndications: Essential hypertension Take 1 Tablet by mouth daily. 90 Tablet 3 04/13/2024 magnesium oxide (MAG-OX) 400 mg (241.3 mg magnesium) Oral Tablet Take 400 mg by mouth three times a week. metFORMIN (GLUCOPHAGE XR) 500 mg Oral ER 24 hr tablet Take 1 Tablet by mouth daily (with breakfast). 90 Tablet 1 08/28/2024 methIMAzole (TAPAZOLE) 10 mg Oral Tablet TAKE 1 TABLET BY MOUTH 5 DAYS A WEEK AND 1/2 TABLET 2 DAYS A WEEK 90 Tablet 1 05/25/2024 multivitamin with folic acid (THERAGRAN) 400 mcg Oral Tablet Take 1 Tablet by mouth daily. polyethylene glycol (GLYCOLAX) 17 gram/dose Oral Powder MIX 17G (1 CAPFUL) IN YOUR FAVORITE DRINK ONCE A DAY BEGININNG 1 WEEK PRIOR TO SURGERY, AFTER SURGERY DRINK THIS TWICE A DAY FOR 2 WEEKS 510 g 09/01/2023 propranoloL (INDERAL) 40 mg Oral TabletIndications: PVC (premature ventricular contraction) Take 1 Tablet by mouth daily. 90 Tablet 3 04/13/2024 UNABLE TO FIND Take 1 Package by mouth daily. Med Name: Emerg-C 1 pk of powder mixed with 8 oz of water cephALEXin (KEFLEX) 500 mg Oral CapsuleIndications :UTI (urinary tract infection), uncomplicated Take 1 Capsule by mouth every 8 hours for 10 days. 30 Capsule 08/28/2024 09/08/19 25 phenazopyridine (PYRIDIUM) 200 mg Oral TabletIndications: UTI (urinary tract infection), uncomplicated Take 1 Tablet by mouth 3 times daily as needed for up to 2 days. 6 Tablet 08/28/2024 08/31/19 25 semaglutide, weight loss, (WEGOVY) 0.5 mg/0.5 mL SubQ Pen InjectorIndication s:Obesity, Class II, BMI 35-39.9 Subcutaneous (Inject under the skin) 0.5 mg once a week for 4 doses. 2 mL 6 08/28/2024 09/20/19 25 documented as of this encounter Discharge Disposition Disposition Code Departure Means Destination Home or Self Care documented in this encounter Plan of Treatment Upcoming Encounters Date Type Department Care Team (Late st Contact Info) Description 01/03/2025 3:00 PM EDT Telemedicine SEP Diabetes [address] [phone] Elizabeth Allen MD [address] [place] [phone] documented as of this encounter Goals Goal Patient Goal Type Associated Problems Recent Progress Patient-Stated? Author Blood Pressure < 140/90 Blood Pressure 118/76(2024 8:05 AM EDT) No Nathalie De La Torre RMA Maintain a healthy diet, exercise regularly and maintain an ideal body weight General No Mckenna Danielle RMA documented as of this encounter Procedures Procedure Name Priority Date/Time Associated Diagnosis Comments XR ABDOMEN AP Routine 08/28/2024 3:24 PM EDT Flank pain documented in this encounter Results * XR [...] 08/28/2024 3:24 PM CLINICAL HISTORY: R10.9-Unspecified abdominal [id number] COMPARISON: No comparison KUB studies. PROCEDURE COMMENTS: AP view(s) of the abdomen per protocol. FINDINGS: Prior cholecystectomy. Nonobstructive bowel gas pattern. No dominant renal calcifications. Diffuse levoconvex lumbar curvature. Multiple lower right paraspinal phleboliths. Multiple scattered pelvic phleboliths. Procedure Note Gavin Cortez DO - 08/28/2024 CR, ABDOMEN AP, 08/28/2024 3:24 PM CLINICAL HISTORY: R10.9-Unspecified abdominal [id number] COMPARISON: No comparison KUB studies. PROCEDURE COMMENTS: [...] IMG DIAGNOSTIC IMAGING ORDERAB LES Final Result documented in this encounter Visit Diagnoses Diagnosis Flank pain Abdominal pain, unspecified site documented in this encounter Additional Health Concerns Assessment Noted Time A fall risk assessment has been complete d for the patient 04/13/2024 4:08 PM EST documented as of this encounter Care Teams Light Truck Driver Relationship Specialty Start Date End Date Zane Morris APRN [address] [id number] PCP - General Nurse Practitioner 03/28/23 Elizabeth Allen MD [address] [id number] Internal Medicine-Endocrinology, Diabetes & Metabolism 06/06/14 Doug Beth MD [address] [place] [id number] Consulting Physician Anesthesiology 01/18/19 documented as of this encounter
--- OUTSIDE RECORDS SUMMARY | 2024-10-11 08:15 | XMS_ITS | Encounter Summary ---
Author Organization [place] [address] Care Team Providers Care Gold Stamper Name Role Phone Elizabeth Allen MD Unavailable Doug Beth MD Unavailable Zane Morris APRN Primary Care Provider [phone] Reason for Visit * Reason Comments Cough Nasal Congestion Dysuria Encounter Details Date Type Department Care Team (Late st Contact Info) Description 10/11/2024 8:15 AM EDT Office Visit [facility] [address] [place] [address] Zane Morris APRN [address] [place], [place] [id number] Acute bacterial sinusitis (Primary Dx); UTI (urinary [...] Refills Last Filled Start Date End Date cefdinir (OMNICEF) 300 mg Oral CapsuleIndications: Acute bacterial sinusitis,UTI (urinary tract infection), uncomplicated Take 1 Capsule by mouth 2 times daily for 10 days. 20 Capsule 10/11/2024 montelukast (SINGULAIR) 10 mg Oral TabletIndications:C hronic obstructive pulmonary disease, unspecified COPD type (HCC),Wheezing Take 1 Tablet by mouth nightly. 90 Tablet 3 10/11/2024 documented in this encounter Progress Notes [...] 01/03/2025 3:00 PM EDT Telemedicine SEP Diabetes [address] [phone] Elizabeth Allen MD [address] [place] [phone] documented as of this encounter Goals [...] Zane Morris APRN HEMATOLOGY ORDERABLES Final Result [facility] [employer] [address] [place] [facility] , [address] [place] [id number] * (ABNORMAL) IRON+TIBC (10/11/2024 8:39 AM EDT) Iron 32 30 - 160 mcg/dL 10/11/2024 4:47 PM EDT [facility] Transferrin 227 200 - 360 mg/dL 10/11/2024 4:47 PM EDT [facility] Transferrin Saturation 10(L) 20 - 50 % 10/11/2024 4:47 PM EDT [facility] TIBC 318 250 - 400 mcg/dL 10/11/2024 4:47 PM EDT [facility] Blood VENOUS BLOOD / Unknown Venipuncture / Unknown 10/11/2024 8:39 AM EDT 10/11/2024 8:39 AM EDT us Zane Morris APRN CHEMISTRY ORDERABLES Final R esult Performing Organization Address City/[facility]/ZIP Co de Phone Number [facility] [employer] [address] [facility] , [place] [address] * URINE CULTURE (NO STAIN) (10/11/2024 8:22 AM EDT) Culture No growth at 30 hours. 10/13/2024 6:05 PM EDT [facility] [employer] Urine STRUCTURE OF URINARY TRACT PROPER / Unknown 10/11/2024 8:22 AM EDT 10/11/2024 8:22 AM EDT us Zane Morris APRN MICROBIOLOGY - GENERAL ORDER RAVI Final Result Performing Organization Address City/[facility]/ZIP Co de Phone Number [facility], [facility] [address] [facility] , [address] [place], [place] [id number] * (ABNORMAL) SEP URINALYSIS POC (10/11/2024 8:20 AM EDT) UA Color POC Yellow Color 10/11/2024 8:22 AM EDT [facility] UA Appear POC Slightly Cloudy(A) Clear 10/11/2024 8:22 AM EDT [facility] UA Gluc POC Negative Negative mg/dL 10/11/2024 8:22 AM EDT [facility] UA Bili POC Negative Negative 10/11/2024 8:22 AM EDT [facility] UA Ketones POC Negative Negative mg/dL 10/11/2024 8:22 AM EDT [facility] UA SG POC 1.020 1.001 - 1.035 no units 10/11/2024 8:22 AM EDT [facility] UA Blood POC Small(A) Negative 10/11/2024 8:22 AM EDT [facility] UA pH POC 6.0 5.0 - 8.0 pH 10/11/2024 8:22 AM EDT [facility] UA Protein POC Negative Negative mg/dL 10/11/2024 8:22 AM EDT [facility] UA Urobilinogen POC 0.2 0.2, 1.0 10/11/2024 8:22 AM EDT [facility] UA Nitrite POC Negative Negative 10/11/2024 8:22 AM EDT [facility] UA Leuk Est POC Small(A) Negative 8:22 AM EDT [facility] Urine STRUCTURE OF URINARY TRACT PROPER / Unknown 10/11/2024 8:20 AM EDT 10/11/2024 8:22 AM EDT us Zane Morris REMOTE SENSING SCIENTIST POINT OF CARE TEST ORDERABLE S Final Result [facility] [address] [place] [address] documented in this encounter Visit Diagnoses Diagnosis Acute bacterial sinusitis- Primary Acute sinusitis, unspecified UTI (urinary tract infection), uncomplicated Urinary tract infection, site not specified Low iron Iron deficiency anemia, unspecified Chronic obstructive pulmonary disease, unspecified COPD type (HCC) Wheezing Urine frequency Urinary frequency Anemia, unspecified [...] documented as of this encounter Care Teams Gold Stamper Relationship Specialty Start Date End Date Zane Morris APRN [address] [place] [phone] PCP - General Nurse Practitioner 03/28/23 Elizabeth Allen MD [address] [phone] Internal Medicine-Endocrinology, Diabetes & Metabolism 06/06/14 Doug Beth MD [address] [place] [phone] Consulting Physician Anesthesiology 01/18/19 documented as of this encounter
--- OUTSIDE RECORDS SUMMARY | 2024-10-21 09:51 | XMS_ITS | Encounter Summary ---
Author Organization [place] [address] Care Team Providers Care Ballast Cleaning Machine Operator Name Role Phone Elizabeth Allen MD Unavailable Doug Beth MD Unavailable Zane Morris APRN Primary Care Provider [phone] Reason for Visit * Reason Comments Medication Refill Encounter Details Date Type Department Care Team (Late st Contact Info) Description 08/27/2024 Telephone [facility] [address] [place] [address] Zane Morris APRN 100 [place], [place] [id number] Medication Refill Social History Tobacco Use Types Packs/Day Years [...] when wearing glasses? No 08/28/2024 9:20 AM EDLeslie Morfin RMA Does this person have seriou s difficulty walking or climbing stairs? No 08/28/2024 9:20 AM Leslie Quiñones RMA Does this person have difficulty dressing or bathing? No 08/28/2024 9:20 AM Leslie Quiñones RMA * Is the person deaf or does he/she have serious difficulty hearing? Answer Date of Assessment Author No 06/02/2023 9:13 AM Daisy Blackwell MA * Is the person blind or does he/she have serious difficulty seeing even when wearing glasses? Answer Date of Assessment Author No 06/02/2023 9:13 AM Daisy Blackwell MA * Does this person have serious difficulty walking or climbing stairs? Answer Date of Assessment Author No 06/02/2023 9:13 AM Daisy Blackwell MA * Does this person have difficulty dressing or bathing? Answer Date of Assessment Author No 06/02/2023 9:13 AM Daisy Blackwell MA * Because of a physical, mental or emotional condition, does this person have difficulty doing errands alone such as visiting a doctor's office or shopping? Answer Date of Assessment Author No 06/02/2023 9:13 AM Daisy Blackwell MA * PHQ-9 Total Score Answer Date of Assessment Author 0 08/28/2024 9:20 AM Leslie Quiñones RMA * Question Answer Date of Assessment Author Little interest or pleasure in doing things 0 08/28/2024 9:20 AM Leslie Quiñones RMA Feeling down, depressed, or hopeless 0 08/28/2024 9:20 AM Leslie Quiñones RMA PHQ-2 Total Score 0 08/28/2024 9:20 [...] Trouble Relaxing 0 08/28/2024 9:20 AM EDT S Leslie cano RMA Being so Restless That it is Hard to Sit Still 0 08/28/2024 9:20 AM EDT Leslie Ashley RMA Becoming Easily Annoyed or Irritable 0 08/28/2024 9:20 AM EDT Leslie Ashley RMA Feeling Afraid as if Something Awful Might Happen 0 08/28/2024 9:20 AM EDT Leslie Ashley RMA EMILY-7 Total Score 0 08/28/2024 9:20 AM EDT Leslie Ashley RMA documented as of this encounter Mental Status * Cognitive and Functional Status Question Answer Entry Date Author Because of a physical, menta l or emotional condition, does this person have difficulty doing errands alone such as visiting a doctor's office or shopping? No 08/28/2024 9:20 AM EDT Leslie Ashley RMA Because of a physical, menta l or emotional condition, does this person have serious difficulty concentrating, remembering or making decisions? No 08/28/2024 9:20 AM EDT Leslie Ashley RMA * Because of a physical, mental or emotional condition, does this person have serious difficulty concentrating, remembering or making decisions? Answer Entry Date Author No 06/02/2023 9:13 AM Daisy Blackwell MA documented in this encounter Miscellaneous Notes * Telephone Encounter - Victorina Story MA - 09/07/2024 10:27 AM EDT Spoke w/pt advised medication that wegovy was denied, an appeal can be made but may take up to 10 business days * Telephone Encounter - Vincent Santacruzdean - 09/07/2024 9:55 AM EDT Select the most appropriate reason for this telephone message: Other Who is calling (name & relationship to patient if not the patient): Patient What is needed OR why are they calling: Per pt stating would like an update on the PA for the medication. Pt stating would also like to know if pt will have to start over and then increase dose againonce pt is able to get the medication. When is this needed by: today Where does this information need to go: n.a Return Method of Communication: Phone Call Additional information:N/A documented in this encounter Plan of Treatment Upcoming Encounters Date Type Department Care Team (Late st Contact Info) Description 01/03/2025 3:00 PM EDT Telemedicine SEP Diabetes [address] [address] Elizabeth Allen MD [address] [place] [id number] documented as of this encounter Goals Goal Patient Goal Type Associated Problems Recent Progress Patient-Stated? Author Blood Pressure < 140/90 Blood Pressure 118/76(2024 8:05 AM EDT) No Nathalie De La Torre RMA Maintain a healthy diet, exercise regularly and maintain an ideal body weight General No Mckenna Danielle RMA documented as of this encounter Visit Diagnoses Diagnosis Obesity, Class II, BMI 35-39.9 Obesity, unspecified documented in this encounter Additional Health Concerns Assessment Noted Time A fall risk assessment has been complete d for the patient 04/13/2024 4:08 PM EST documented as of this encounter Care Teams Ballast Cleaning Machine Operator Relationship Specialty Start Date End Date Zane Morris APRN [address] [place] [id number] PCP - General Nurse Practitioner 03/28/23 Elizabeth Allen MD [address] [phone] Internal Medicine-Endocrinology, Diabetes & Metabolism 06/06/14 Doug Beth MD [address] [place] [phone] Consulting Physician Anesthesiology 01/18/19 documented as of this encounter
--- OUTSIDE RECORDS SUMMARY | 2024-10-21 09:51 | XMS_ITS | Clinical Summary ---
Author Organization [employer] [facility] are Address [address] [phone] Phone Care Team Providers Care Academic Director Name Role Phone Hon TONEY, Rosario Valdes Unavailable Conditions or Problems No information available. Medications Medication Instructions Start Date Stop Date Generic Name [facility] Provider VENTOLIN HFA 108 (90 Base) MCG/ACT AERS Inhale 2 puffs into the lungs every 6hrs as needed for wheezing ALBUTEROL SULFATE [id number] Rosario Jarvis RN PROPRANOLOL HCL 20 MG TABS Take 1 tablet by mouth 2 times daily PROPRANOLOL HCL [id number] Rosario Jarvis RN POLYETHYLENE GLYCOL 3350 17 GM/SCOOP POWD Take 17grams by mouth daily as needed POLYETHYLENE GLYCOL 3350 [id number] Rosario Jarvis RN OMEPRAZOLE 20 MG CPDR Take 1 capsule by mouth daily OMEPRAZOLE [id number] Rosario Jarvis RN MOEXIPRIL-HYDROC HLOROTHIAZIDE 15-25 MG ORAL TABLET One tablet by mouth once daily MOEXIPRIL-HYDRO CHLOROTHIAZIDE [id number] Rosario Jarvis RN METHIMAZOLE 10 MG TABS Take 10mg 6 days a week and 5mg 1 day a week METHIMAZOLE [id number] Rosario Jarvis RN HYDROCODONE-ACET AMINOPHEN 10-325 MG TABS One tablet by mouth every 8 hrs as needed for pain HYDROCODONE-CARLIE TAMINOPHEN [id number] Rosario Jarvis RN EQL ALLER-EASE 180 MG ORAL TABLET Take one tab by mouth daily FEXOFENADINE HCL [id number] Rosario Jarvis RN ALBUTEROL SULFATE HFA 108 (90 Base) MCG/ACT AERS Inhale 2 puffs into the lungs every 4 hours as needed for wheezing ALBUTEROL SULFATE [id number] Jarvis RN Medications Administered No information available. Allergies, Adverse Reactions, Alerts No information available. 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 Procedures No information available. Vital Signs No information available. Immunizations Vaccine Administration Date Standard Description CVX Co de Dose Adacel Intramuscular Suspension 5-2-15.5 Adacel Intramuscular Suspension 5-2-15.5 115 Unknown FREE Merck Pneumovax 23 Injection Injectable 25 MCG/0.5ML FREE Merck Pneumovax 23 Injection Injectable 25 MCG/0.5ML 33 Unknown Advance Directives No information available.
--- OUTSIDE RECORDS SUMMARY | 2024-10-21 09:51 | XMS_ITS | Encounter Summary ---
Author Organization [facility] [address] Care Team Providers Care Township Clerk Name Role Phone Elizabeth Allen MD Unavailable Doug Beth MD Unavailable Zane Morris APRN Primary Care Provider [phone] Reason for Visit * Reason Onset Date Comments Orders 08/28/2024 xray Encounter Details Date Type Department Care Team (Late st Contact Info) Description 08/28/2024 Telephone [facility] 100 [place] [address] Zane Morris APRN [address] [place], [place] [phone] Orders (xray) Social History Tobacco Use Types Packs/Day Years [...] 08/28/2024 9:20 AM Leslie Quiñones RMA * PHQ-9 Total Score Answer Date [...] EDLeslie Morfin RMA documented in this encounter Miscellaneous Notes * Telephone Encounter - Tiffanie Villa - 08/28/2024 11:33 AM EDT Pt reporting pain is worse and she would like a order placed for an xray. * Telephone Encounter - Marcos Barbosa CNA - 08/28/2024 11:08 AM EDT Select the most appropriate reason for this telephone message: Order Request Who is requesting the Order(s): Patient What Orders are being requested: Radiology Reason Orders are Needed (Diagnosis): pt was told by provider that she possibly has a kidney stone Why is this encounter being sent: Patient has been seen for this and informed to call back if no improvement or gets worse What types of radiology orders are being requested: X-ray Is patient waiting at lab/hospital/facility: No If non-[facility] facility, where should the order be faxed (include fax number): n/a Upcoming PCP appointment date: none Return Method of Communication: Phone Call Additional Information: N/A documented in this encounter Plan of Treatment Upcoming Encounters Date Type Department Care Team (Late st Contact Info) Description 01/03/2025 3:00 PM EDT Telemedicine SEP Diabetes [address] [address] Elizabeth Allen MD [address] [place] [phone] documented as of this encounter Goals Goal Patient Goal Type Associated Problems Recent Progress Patient-Stated? Author Blood Pressure < 140/90 Blood Pressure 118/76(2024 8:05 AM EDT) No Nathalie De La Torre RMA Maintain a healthy diet, exercise regularly and maintain an ideal body weight General No Mckenna Danielle RMA documented as of this encounter Visit Diagnoses Not on filedocumented in this encounter Additional Health Concerns Assessment Noted Time A fall risk assessment has been complete d for the patient 04/13/2024 4:08 PM EST documented as of this encounter Care Teams Township Clerk Relationship Specialty Start Date End Date Zane Morris APRN [address] [place] [phone] PCP - General Nurse Practitioner 03/28/23 Elizabeth Allen MD [address] [phone] Internal Medicine-Endocrinology, Diabetes & Metabolism 06/06/14 Duog Beth MD [address] [place] [phone] Consulting Physician Anesthesiology 01/18/19 documented as of this encounter
--- OUTSIDE RECORDS SUMMARY | 2024-10-21 09:52 | XMS_ITS | Encounter Summary ---
Author Organization [place] [address] Care Team Providers Care Technology Advisor Name Role Phone Elizabeth Allen MD Unavailable Doug Beth MD Unavailable Zane Morris APRN Primary Care Provider [phone] Encounter Details Date Type Department Care Team (Late st Contact Info) Description 08/29/2024 Results Follow-Up [facility]P [facility] 100 [place] [address] Annette Chan MD 100 [place] [address] XR ABDOMEN AP, URINE CULTURE (NO STAIN) Social History Tobacco Use Types Packs/Day Years [...] as of this encounter Functional Status * Is the [...] Entry Date Author No 08/28/2024 9:20 AM EDT Leslie Ashley RMA documented in this encounter Plan of Treatment Upcoming Encounters Date Type Department Care Team (Late st Contact Info) Description 01/03/2025 3:00 PM EDT Telemedicine SEP Diabetes [address] [address] Elizabeth Allen MD [address] [phone] documented as of this encounter Goals Goal Patient Goal Type Associated Problems Recent Progress Patient-Stated? Author Blood Pressure < 140/90 Blood Pressure 118/76(2024 8:05 AM EDT) No Nathalie De La Torre RMA Maintain a healthy diet, exercise regularly and maintain an ideal body weight General No Danielle, Mckenna, RMA documented as of this encounter Visit Diagnoses Not on filedocumented in this encounter Additional Health Concerns Assessment Noted Time A fall risk assessment has been complete d for the patient 04/13/2024 4:08 PM EST documented as of this encounter Care Teams Technology Advisor Relationship Specialty Start Date End Date Zane Morris APRN 100 [place] [address] PCP - General Nurse Practitioner 03/28/23 Elizabeth Allen MD [address] [phone] Internal Medicine-Endocrinology, Diabetes & Metabolism 06/06/14 Doug Beth MD [address] [place] [phone] Consulting Physician Anesthesiology 01/18/19 documented as of this encounter
--- OUTSIDE RECORDS SUMMARY | 2024-10-21 09:52 | XMS_ITS | Encounter Summary ---
Author Organization [place] [address] Care Team Providers Care Industrial Green Systems Designer Name Role Phone Elizabeth Allen MD Unavailable Doug Beth MD Unavailable Zane Morris APRN Primary Care Provider [phone] Reason for Visit * Reason Onset Date Comments Symptoms (Only Use If Pt Pus hes Back On Scheduling A Visit) 10/14/2024 came in on Friday sinus infe ction / uti still not feeling better Encounter Details Date Type Department Care Team (Late st Contact Info) Description 10/14/2024 Telephone [facility] 100 [place] [address] Zane Morris APRN 100 [place] [address] Symptoms (Only Use If Pt Pushes Back On Scheduling A Visit) (came in on Friday sinus infection / uti still not feeling better ) Social History Tobacco Use Types Packs/Day Years [...] EDLeslie Morfin RMA documented in this encounter Ordered Prescriptions Prescription Sig Dispense Quantity Refills Last Filled Start Date End Date azithromycin (ZITHROMAX) 250 mg Oral Tablet Take 2 tablets (500 mg) on Day 1, followed by 1 tablet (250 mg) once daily on Days 2 through 5. 6 Tablet 10/14/2024 documented in this encounter Miscellaneous Notes * Addendum Note - Annette Pearson MD - 10/14/2024 5:41 PM EDTAddended by: ANNETTE PEARSON on: 10/14/2024 05:41 PM Modules accepted: Orders * Telephone Encounter - Tracey Reed CCMA - 10/14/2024 4:51 PM EDT Hany 10/11 * Telephone Encounter - Tati Jung - 10/14/2024 2:31 PM EDT Select the most appropriate reason for this telephone message: Symptoms Call Who is reporting the symptoms: Patient What symptom(s) is the patient experiencing: feels weak , congested , coughing ( uti seems to have cleared up ) How long have symptoms been present: 1 week(s) ago Has the patient been seen for this:Yes Has the patient tried anything to relieve the symptoms and did it help: Yes cough drops / over the counter meds not really helping If pain, what level on scale 1-10 (10 being the greatest): No pain Desired Outcome: Advice Pharmacy & Location:[place] [address] [address] [facility] [phone] [[id number]] Return Method of Communication: Phone Call Was patient transferred to Nurse Triage for additional help? N/A Additional Information: pt would like the doctor to give advice on if she needs to come back in or if he could call her in something like a steroid. documented in this encounter Plan of Treatment Upcoming Encounters Date Type Department Care Team (Late st Contact Info) Description 01/03/2025 3:00 PM EDT Telemedicine SEP Diabetes [address] [address] Elizabeth Allen MD [address] [place] [phone] documented as of this encounter Goals Goal Patient Goal Type Associated Problems Recent Progress Patient-Stated? Author Blood Pressure < 140/90 Blood Pressure 118/76(2024 8:05 AM EDT) Nathalie Banuelos RMA Maintain a healthy diet, exercise regularly and maintain an ideal body weight General No Mckenna Danielle RMA documented as of this encounter Visit Diagnoses Not on filedocumented in this encounter Additional Health Concerns Assessment Noted Time A fall risk assessment has been complete d for the patient 04/13/2024 4:08 PM EST documented as of this encounter Care Teams Industrial Green Systems Designer Relationship Specialty Start Date End Date Zane Morris APRN [address] [place] [address] PCP - General Nurse Practitioner 03/28/23 Elizabeth Allen MD [address] [phone] Internal Medicine-Endocrinology, Diabetes & Metabolism 06/06/14 Doug Beth MD [address] [phone] Consulting Physician Anesthesiology 01/18/19 documented as of this encounter
--- OUTSIDE RECORDS SUMMARY | 2024-10-21 09:52 | XMS_ITS | Encounter Summary ---
Author Organization [place] [address] Care Team Providers Care Dormitory Supervisor Name Role Phone Elizabeth Allen MD Unavailable Doug Beth MD Unavailable Zane Morris APRN Primary Care Provider [phone] Encounter Details Date Type Department Care Team (Late st Contact Info) Description 10/12/2024 Results Follow-Up SEP [facility] 100 [place] [address] Zane Morris APRN 100 [place] [address] IRON+TIBC, CBC Social History Tobacco Use Types Packs/Day Years [...] 01/03/2025 3:00 PM EDT Telemedicine SEP Diabetes [address] [address] Elizabeth Allen MD [address] [phone] documented as of this encounter [...] documented as of this encounter Care Teams Dormitory Supervisor Relationship Specialty Start Date End Date Zane Morris APRN 100 [place] [address] PCP - General Nurse Practitioner 03/28/23 Elizabeth Allen MD [address] [phone] Internal Medicine-Endocrinology, Diabetes & Metabolism 06/06/14 Doug Beth MD [address] [place] [phone] Consulting Physician Anesthesiology 01/18/19 documented as of this encounter
--- OUTSIDE RECORDS SUMMARY | 2024-10-21 09:52 | XMS_ITS | Clinical Summary ---
Author Organization 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 7 Active cetirizine (ZYRTEC) 10 mg Oral Tablet Take 10 mg by mouth daily. Active fluticasone propionate (FLONASE) 50 mcg/actuation [place], SuspensionIndicat ions:Nasal congestion 1 [place] by Nasal route daily. 1 Bottle 1 Active Additional Information Patient not taking.Reason: Pt electing to not take the medication, Informant: Self/Patient, Reported on 10/11/2024 aspirin 81 mg Oral Capsule Take 81 mg by mouth daily. Active guaiFENesin (MUCINEX) 600 mg Oral Tablet Extended Release 12hr Take 1,200 mg by mouth 2 times daily. Active Cholecalciferol, Vitamin D3, 50 mcg (2,000 unit) Oral Capsule Take 4,000 Units by mouth daily. Liqiud-pt takes 4 drops Active UNABLE TO FIND Take 1 Package by mouth daily. Med Name: Emerg-C 1 pk of powder mixed with 8 oz of water Active multivitamin with folic acid (THERAGRAN) 400 mcg Oral Tablet Take 1 Tablet by mouth daily. Active magnesium oxide (MAG-OX) 400 mg (241.3 mg magnesium) Oral Tablet Take 400 mg by mouth three times a week. Active polyethylene glycol (GLYCOLAX) 17 gram/dose Oral Powder MIX 17G (1 CAPFUL) IN YOUR FAVORITE DRINK ONCE A DAY BEGININNG 1 WEEK PRIOR TO SURGERY, AFTER SURGERY DRINK THIS TWICE A DAY FOR 2 WEEKS 510 g 4 Active ipratropium (ATROVENT) 21 mcg (0.03 %) [place], Non-Aerosol 2 SPRAYS BY NASAL ROUTE 3 TIMES DAILY. 30 mL 4 Active Additional Information Patient not taking.Reason: Pt electing to not take the medication, Informant: Self/Patient, Reported on 10/11/2024 HYDROcodone-aceta minophen (NORCO) 10-325 mg Oral Tablet Take 1 Tablet by mouth every 6 hours as needed for Acute Pain (R52). 4 Active albuterol (PROVENTIL HFA;VENTOLIN HFA) 90 mcg/actuation Inhl HFA Aerosol InhalerIndication s:Acute bronchitis, unspecified organism,COVID-19 virus detected INHALE 2 PUFFS INTO THE LUNGS EVERY 4 HOURS NEEDED FOR WHEEZING. 8.5 g 2 4 Active lisinopriL (PRINIVIL;ZESTRIL ) 10 mg Oral TabletIndications :Essential hypertension Take 1 Tablet by mouth daily. 90 Tablet 3 4 Active hydroCHLOROthiazi de 25 mg Oral TabletIndications :Essential hypertension Take 1 Tablet by mouth daily. 90 Tablet 3 4 Active propranoloL (INDERAL) 40 mg Oral TabletIndications :PVC (premature ventricular contraction) Take 1 Tablet by mouth daily. 90 Tablet 3 4 Active methIMAzole (TAPAZOLE) 10 mg Oral Tablet TAKE 1 TABLET BY MOUTH 5 DAYS A WEEK AND 1/2 TABLET 2 DAYS A WEEK 90 Tablet 1 5 Active metFORMIN (GLUCOPHAGE XR) 500 mg Oral ER 24 hr tablet Take 1 Tablet by mouth daily (with breakfast). 90 Tablet 1 5 Active montelukast (SINGULAIR) 10 mg Oral TabletIndications :Chronic obstructive pulmonary disease, unspecified COPD type (HCC),Wheezing Take 1 Tablet by mouth nightly. 90 Tablet 3 5 Active cefdinir (OMNICEF) 300 mg Oral CapsuleIndication s:Acute bacterial sinusitis,UTI (urinary tract infection), uncomplicated Take 1 Capsule by mouth 2 times daily for 10 days. 20 Capsule 5 025 Active azithromycin (ZITHROMAX) 250 mg Oral Tablet Take 2 tablets (500 mg) on Day 1, followed by 1 tablet (250 mg) once daily on Days 2 through 5. 6 Tablet 5 Active Active Problems Patient Care Coordination No te Formatting of this note migh t be different from the original. UDS 03/29/19 see scanned result [facility] 10/30/16#[id number] pain mgt Dr. Milad Eddy of [facility],03/07/20([id number]) Problem Noted Date Diagnosed Date Thickened endometrium 06/05/2023 Uterovaginal prolapse, incomplete 05/07/2023 Urge incontinence of urine 05/07/2023 COPD (chronic obstructive pulmonary disease) 04/2023 Assessment & Plan (10/11/2024 8:37 AM EDT): Orders: montelukast (SINGULAIR) 10 mg Oral Tablet; Take 1 Tablet by mouth nightly. Assessment & Plan (08/31/2024 12:39 AM EDT): stable Hepatic cyst 01/24/2022 Overview (01/24/2022): Numerous seen on CT 2004 PVC (premature ventricular contraction) 09/05/19 21 Overview (09/04/2020): will increase dosage of inderal Assessment & Plan (04/13/2024 5:41 PM EST): Orders: propranoloL (INDERAL) 40 mg Oral Tablet; Take 1 Tablet by mouth daily. Encounter for long-term current use of medicatio n 12/29/2019 Snoring 12/29/2019 IFG (impaired fasting glucose) 12/18/2016 Severe obesity with body mas s index (BMI) of 35.0 to 39.9 with comorbidity 11/18/2011 Assessment & Plan (08/31/2024 12:39 AM EDT): stable Assessment & Plan (04/13/2024 5:41 PM EST): -Currently taking wegovy. Hyperthyroidism 05/01/2011 Assessment & Plan (04/13/2024 5:41 PM EST): -Follows with endocrine. Allergic rhinitis, cause unspecified Unspecified essential hypertension Assessment & Plan (04/13/2024 5:41 PM EST): Orders: lisinopriL (PRINIVIL;ZESTRIL) 10 mg Oral Tablet; Take 1 Tablet by mouth daily. hydroCHLOROthiazide 25 mg Oral Tablet; Take 1 Tablet by mouth daily. Esophageal reflux Osteoarthrosis, unspecified whether generalized or localized, unspecified site Lumbago Restless legs syndrome (RLS) Resolved Problems Problem Noted Date Diagnosed Date Resolved Date Abnormal stress ECG 06/10/2018 09/05/19 21 Chest pain 09/07/2013 09/04/2020 Fluid overload 09/04/2020 Pain medication agreement Encounters Date Type Department Care Team Description 10/14/2024 Telephone [facility] [address] [place] [address] Zane Morris APRN Symptoms (Only Use If Pt Pushes Back On Scheduling A Visit) (came in on Friday sinus infection / uti still not feeling better ) 10/12/2024 Results Follow-Up [facility] [address] [place] [address] Zane Morris APRN IRON+TIBC, CBC 10/11/2024 8:15 AM EDT Office Visit [facility] [address] [place] [address] Zane Morris APRN Acute bacterial sinusitis (Primary Dx); UTI (urinary tract infection), uncomplicated; Low iron; Chronic obstructive pulmonary disease, unspecified COPD type ([facility]); Wheezing; Urine frequency; Anemia, unspecified type 08/29/2024 Results Follow-Up [facility] [address] [facility] [place] [address] Annette Chan MD XR ABDOMEN AP, URINE CULTURE (NO STAIN) 08/28/2024 2:45 PM EDT - 08/28/2024 11:59 PM EDT Hospital Encounter GRT XRAY [address] [facility] [place] [address] Flank pain Discharge Disposition: Home or Self Care 08/28/2024 9:00 AM EDT Office Visit [place] [address] [address] [place] [address] Annette Chan MD Dysuria (Primary Dx); Chronic obstructive pulmonary disease, unspecified COPD type ([facility]); Severe obesity with body mass index (BMI) of 35.0 to 39.9 with comorbidity ([facility]); UTI (urinary tract infection), uncomplicated; Obesity, Class II, BMI 35-39.9; Flank pain; Statin myopathy 08/28/2024 Telephone [place] [address] [address] [place] [address] Zane Morris APRN Orders (xray) 08/27/2024 Telephone [place] [address] [facility] [place] [address] Zane Morris APRN Medication Refill 08/05/2024 Refill [place] [address] [place] [address] Zane Morris APRN Medication Refill 07/29/2024 Refill [facility] [address] [place] [address] Zane Morris APRN Medication Refill from Last 3 Months Immunizations Immunization Administration Dates Next Due Influenza High Dose 03/15/2024 Influenza Vaccine Quadrivalent 01/31/2020,2018,02/19/2017 Influenza Vaccine Quadrivalent PF 01/24/2022 Influenza Vaccine, Unspecifi ed Formulation 01/24/2014,02/03/2013,03/09/2012,02/22 Pneumococcal Polysaccharide 23 Valent 03/23/2012 Quadrivalent Influenza High Dose 03/28/2023 Tdap 06/16/2013 Surgical History Surgery Date Site/Laterality Comments GALLBLADDER SURGERY OVARY REMOVAL right KNEE SURGERY COLONOSCOPY HYSTEROSCOPY 06/19/2023 N/A N/A Hysteroscopy, Dilation and Curettage, Cystoscopy; Surgeon: Penny Sorenson MD; Location: [facility]; Service: Gynecology CYSTOSCOPY 06/19/2023 N/A .; Surgeon: Penny Sorenson MD; Location: [facility]; Service: Gynecology HYSTERECTOMY, VAGINAL 09/08/2023 Bilateral Total Vaginal Hysterectomy, Uterosacral Ligament Suspension, Anterior And Posterior Repairs, Cystoscopy; Surgeon: Penny Sorenson MD; Location: [facility]; Service: Gynecology CYSTOCELE REPAIR 09/08/2023 N/A .; Surgeon: Penny Sorenson MD; Location: [facility]; Service: Gynecology CYSTOSCOPY 09/08/2023 N/A .; Surgeon: Penny Sorenson MD; Location: [facility]; Service: Gynecology NE COLPOPEXY VAGINAL INTRAPERITONEAL APPROACH 09/08/2023 N/A .; Surgeon: Penny Sorenson MD; Location: [facility]; Service: Gynecology EYE SURGERY 11/10/2023 - 12/10/2023 [facility] Medical History Medical History Date Comments Seasonal allergies Restless legs syndrome (RLS) No meds Osteoarthritis No meds Esophageal reflux Zantac Hyperthyroidism 05/01/2011 Methimazole/prop ranolol HTN (hypertension) Uniretic Asthma COPD (chronic obstructive pu lmonary disease) ([facility]) 04/22/2023 Urinary tract infection Prolapse Bladder Sleep apnea testing set up f or sleep apnea 1 week prior to surgery Cardiac dysrhythmia had irregula r heart beats years ago. Took medicine for it. But no longer needs medication per cardiology Neuromuscular disorder ([facility]) has burning pain in my back Lumbar radiculopathy, acute Degenerative disc disease, lumbar Family History Medical History Relation Name Comments Heart Disease Father High Blood Pressure Father Kidney Disease Maternal Aunt Obesity Maternal Aunt Diabetes Maternal Grandmother Anemia Mother Cancer Mother multiple myelom a Kidney Disease Mother Anesth Problems Neg Hx Relation Name Status Comments Father Maternal Aunt Maternal Grandfather Maternal Grandmother Mother Paternal Grandfather Paternal Grandmother Social History Tobacco Use Types Packs/Day Years [...] on file Sexual Orientation Not on file Obstetrics History Para Term AB IAB SAB Ectopic Multiple Livin g Live Births 6 6 Date Outcome GA Total Labor Labor/2nd/3rd Weight Sex Type Anes PTL Estefanía A1 A5 Name Clin 1972 40w0 d Vag-Sp ont 1975 40w0 d Vag-Sp ont 1977 40w0 d Vag-Sp ont 1979 40w0 d Vag-Sp ont 1981 40w0 d Vag-Sp ont 1986 40w0 d Vag-Sp ont Last Filed Vital Signs Vital Sign Reading Time Taken Comments Blood Pressure 118/76 10/11/2024 8:05 AM EDT Pulse 76 07/05/2024 3:08 PM EST Temperature 36.8 C (98.2 F) 10/11/2024 8:05 AM EDT Respiratory Rate 16 07/05/2024 3:08 PM EST Oxygen Saturation 98% 05/10/2024 9:14 AM EST Inhaled Oxygen Concentration - - Weight 96.2 kg (212 lb) 10/11/2024 8:05 AM EDT Height 162.6 cm (5' 4 ) 10/11/2024 8:05 AM EDT Body Mass Index 36.39 10/11/2024 8:05 AM EDT Plan of Treatment Upcoming Encounters Date Type Department Care Team (Late st Contact Info) Description 01/03/2025 3:00 PM EDT Telemedicine [facility] [address] [address] Elizabeth Allen MD [address] [address] Health Maintenance Due Date Last Done Comments Cologuard 2002 FIT 2002 Sigmoidoscopy 2002 Virtual Colonography 2002 Zoster (1 of 2) 12/03/2007 Pneumococcal Vaccine 50+ (2 of 2 - PCV) 03/23/2013 03/23/2012 DTaP/TDaP/Td (2 - Td or Tdap) 06/16/2023 06/16/2013 COVID-19 Vaccine ( - season) 2024 Wellness Exam Medicare 04/14/2025 04/13/2024 Breast Cancer Screening 05/22/2025 05/22/19, 09/10/2021, 09/27/2019, Additional history exists Colon Cancer Screening 03/21/2028 Colonoscopy 03/21/2028 03/21/2023 Hepatitis C Screening Completed 01/18/2019 Bone Density Screening Completed 05/22/2023 Influenza Vaccine Completed 03/15/2024, , 01/24/2022, Additional history exists Hepatitis B Vaccine Aged Out No longe r eligible based on patient's age to complete this topic Meningococcal B Vaccine Aged Out No l onger eligible based on patient's age to complete this topic RSV or 60+ Discontinued Goals Goal Patient Goal Type Associated Problems Recent Progress Patient-Stated? Author Blood Pressure < 140/90 Blood Pressure 118/76(2024 8:05 AM EDT) No Mainous, Nathalie, RMA Maintain a healthy diet, exercise regularly and maintain an ideal body weight General No Danielle, Mckenna, RMA Procedures Procedure Name Priority Date/Time Associated Diagnosis Comments CBC Routine 10/11/2024 8:39 AM EDT Anemia, unspecified type IRON+TIBC Routine 10/11/2024 8:39 AM EDT Low iron URINE CULTURE (NO STAIN) Routine 10/11/2024 8:22 AM EDT Urine frequency SEP URINALYSIS POC Routine 10/11/2024 8: 20 AM EDT Urine frequency XR ABDOMEN AP Routine 08/28/2024 3:24 PM EDT Flank pain URINE CULTURE (NO STAIN) Routine 08/28/2024 9:29 AM EDT Dysuria SEP URINALYSIS POC Routine 08/28/2024 9: 25 AM EDT Dysuria DX BONE DENSITY AXIAL SKELETON Routine 05/22/2023 7:40 AM EST Postmenopausal MM MAMMO DIGITAL FREDY SCREEN BILAT Routine 05/22/2023 7:22 AM EST Encounter for screening mammogram for malignant neoplasm of breast COLONOSCOPY Routine 03/21/2023 8:11 AM EST Screening for colon cancer HCV ANTIBODY SCREEN W/ REFLEX Routine 01/18/2019 9:28 AM EDT Need for hepatitis C screening test from Last 3 Months or Most Recently Relevant to Health Maintenance Results * (ABNORMAL) IRON+TIBC (10/11/2024 8:39 AM EDT) Iron 32 30 - 160 mcg/dL 10/11/2024 4:47 PM EDT [facility] Transferrin 227 200 - 360 mg/dL 10/11/2024 4:47 PM EDT [facility] Transferrin Saturation 10(L) 20 - 50 % 10/11/2024 4:47 PM EDT [facility] TIBC 318 250 - 400 mcg/dL 10/11/2024 4:47 PM EDT [facility] Blood VENOUS BLOOD / Unknown Venipuncture / Unknown 10/11/2024 8:39 AM EDT 10/11/2024 8:39 AM EDT us Zane Morris ADMINISTRATIVE SERVICES DIRECTOR CHEMISTRY ORDERABLES Final R esult [facility] [address] [facility] , [place] [address] * CBC (10/11/2024 8:39 AM EDT) Pathologist [facility] WBC 5.6 3.7 - 10.3 x10(3)/mcL 10/11/2024 [...] 8:39 AM EDT 10/11/2024 8:39 AM EDT Zane Morris APRN HEMATOLOGY ORDERABLES Final Result Performing Organization Address City/[facility]/ZIP Co de Phone Number [facility] [employer] [address] , [place] [address] * URINE CULTURE (NO STAIN) (10/11/2024 8:22 AM EDT) Only the most recent of2 resultswithin the time period is included. Culture No growth at 30 hours. 10/13/2024 6:05 PM EDT [employer] Urine STRUCTURE OF URINARY TRACT PROPER / Unknown 10/11/2024 8:22 AM EDT 10/11/2024 8:22 AM EDT Zane Morris APRN MICROBIOLOGY - GENERAL ORDER RAVI Final Result Performing Organization Address City/[facility] Co de Phone Number [employer] [address] [place] [address] , [place] [address] * (ABNORMAL) SEP URINALYSIS POC (10/11/2024 8:20 AM EDT) Only the most recent of2 resultswithin the time period is included. UA Color POC Yellow Color 10/11/2024 8:22 AM EDT [facility] Appear POC Slightly Cloudy(A) Clear 10/11/2024 8:22 AM EDT [facility] [place] [place] [facility] Gluc POC Negative Negative mg/dL 10/11/2024 8:22 AM EDT [facility] [place] [place] [facility] Bili POC Negative Negative 10/11/2024 8:22 AM EDT [facility] [place] [place] [facility] Ketones POC Negative Negative mg/dL 10/11/2024 8:22 AM EDT [facility] [place] [facility] SG POC 1.020 1.001 - 1.035 no units 10/11/2024 8:22 AM EDT [facility] [place] [facility] Blood POC Small(A) Negative 10/11/2024 8:22 AM EDT [facility] [place] [place] [facility] pH POC 6.0 5.0 - 8.0 [...] AM EDT 10/11/2024 8:22 AM EDT us Znae Morris ADMINISTRATIVE SERVICES DIRECTOR POINT OF CARE TEST ORDERABLE S Final Result Performing Organization Address City/State/[facility] [place] [address] * XR ABDOMEN AP (08/28/2024 3:24 PM [...] 08/28/2024 3:24 PM CLINICAL HISTORY: R10.9-Unspecified abdominal qwri-VIL-37-CM COMPARISON: No comparison KUB studies. PROCEDURE COMMENTS: AP view(s) of the abdomen per protocol. FINDINGS: Prior cholecystectomy. Nonobstructive bowel gas pattern. No dominant renal calcifications. Diffuse levoconvex lumbar curvature. Multiple lower right paraspinal phleboliths. Multiple scattered pelvic phleboliths. Procedure Note Gavin Cortez DO - 08/28/2024 CR, ABDOMEN AP, 08/28/2024 3:24 PM CLINICAL HISTORY: R10.9-Unspecified abdominal vfjo-NWJ-64-CM COMPARISON: No comparison KUB studies. PROCEDURE COMMENTS: [...] DIAGNOSTIC IMAGING ORDERAB LES Final Result * DX BONE DENSITY AXIAL SKELETON (05/22/2023 7:40 AM EST) Anatomical Region Laterality Modality Dexa Scan 05/22/2023 Impressions 05/23/2023 3:26 PM EST Indication: The patient is a female age 65 or older who requires a bone density assessment. Study was performed on [employer] [facility]. Bone Density: Region BMD T-score Z-score AP Spine (L1, L3, L4) 0.841 -1.9 -0.1 Femoral Neck (Left) 0.738 -1.0 0.5 Total Hip (Left) 0.910 -0.3 1.0 Femoral Neck (Right) 0.751 -0.9 0.7 Total Hip (Right) 0.873 -0.6 0.7 World Health Organization criteria for BMD interpretation classify patients as: Normal (T-score at or above -1.0), Low Bone Density (T-score between -1.0 and -2.5), or Osteoporotic (T-score at or below -2.5). T Scores are reported in Postmenopausal women and in men age 50 and older. Z-scores are reported in females prior to menopause and in males younger than age 50. 10-year Fracture Risk(1): Major Osteoporotic Fracture 7.2% Hip Fracture 0.5% Reported Risk Factors: [place] (), Neck BMD=0.738, BMI=38.8 (1) FRAX(R) Version 3.08. Fracture probability calculated for an untreated patient. Fracture probability may be lower if the patient has received treatment. Clinical Information Provided by Patient: Has used or is currently using the following medications: Vitamin D, Diuretic, Thyroid medication Has had or currently has the following medical conditions: Asthma, Emphysema or COPD, Back pain Patient maximum height was 65 Menopause Age: 47 Interpretation: Bone mineral density is in the low bone density range. The spine portion of the study is limited by hypertrophic changes. Medical evaluation for secondary causes of low bone mineral density may be appropriate. A minimum of two years may be required between bone density studies due to inherent testing precision limitations. Intervals between BMD testing should be determined according to each patient's clinical status: typically one year after initiation or change in therapy is appropriate, with longer intervals once therapeutic effect is established. Reported by: Shayna Wright PA-C, CCD on 05/22/2023 2:26:00 PM. us Delores Pugh ADMINISTRATIVE SERVICES DIRECTOR IMG DEXA ORDERABLES Fi nal Result * MM MAMMO DIGITAL FREDY SCREEN BILAT (05/22/2023 7:22 AM EST) Anatomical Region Laterality Modality Breast Bilateral Mammography 05/22/2023 8:03 AM EST Impressions 05/22/2023 8:03 AM EST Negative (QSN-Hmbmhlco-8) ~ RECOMMENDATION: Routine screening mammogram in 1 year. ~ DISCLAIMER * Any patient with a palpable abnormality, unexplained by breast imaging, should be managed on clinical basis by the attending physician. * Breast imaging has a false negative rate of 15%. * The patient was notified by mail of the results of this examination. *The patient's information was entered into a reminder system with a target due date for the next mammogram, in accordance with the [employer] and the Society of Breast Imaging recommendations. Narrative 05/22/2023 8:03 AM EST Procedure:MM MAMMO DIGITAL FREDY SCREEN BILAT ~ Reason for exam: screening, asymptomatic. Z12.31-Encounter for screening mammogram for malignant neoplasm of juwmqn-OSH-29-CM ~ MM MAMMO DIGITAL FREDY SCREEN BILAT Bilateral CC and MLO view(s) were taken. There are scattered fibroglandular densities. Prior study comparison: Compared with prior studies the most recent being 09/10/21, 09/27/19 No mammographic evidence of malignancy. ~ Procedure Note Robbie Gramajo MD - 05/22/2023 Procedure:MM MAMMO DIGITAL FREDY SCREEN BILAT ~ Reason for exam: screening, asymptomatic. Z12.31-Encounter for screening mammogram for malignant neoplasm of xrbbtc-ZGK-99-CM ~ MM MAMMO DIGITAL FREDY SCREEN BILAT Bilateral CC and MLO view(s) were taken. There are scattered fibroglandular densities. Prior study comparison: Compared with prior studies the most recentbeing 09/10/21, 09/27/19 No mammographic evidence of malignancy. ~ IMPRESSION: Negative (MNT-[place]-1) ~ RECOMMENDATION: Routine screening mammogram in 1 year. ~ DISCLAIMER * Any patient with a palpable abnormality, unexplained by breast imaging, should be managed on clinical basis by the attending physician. * Breast imaging has a false negative rate of 15%. * The patient was notified by mail of the results of this examination. *The patient's information was entered into a reminder system with atarget due date for the next mammogram, in accordance with the [employer] and the Society of Breast Imaging recommendations. Delores Rukhsanaedan Pugh ADMINISTRATIVE SERVICES DIRECTOR IMG MAMMOGRAPHY ORDERA BLES Final Result * COLONOSCOPY (03/21/2023 8:11 AM EST) Anatomical Region Laterality Modality Endoscopy Narrative 03/21/2023 8:16 AM EST Table formatting from the original result was not included. Findings One 6 mm sessile polyp in the transverse colon; performed cold snare with complete en bloc removal and retrieved specimen Few diverticula in the sigmoid colon Medium hemorrhoids Recommendation Await pathology results Repeat colonoscopy in 5 years Impression Subcentimeter polyp in the transverse colon was removed with cold snare Diverticulosis in the sigmoid colon Medium hemorrhoids Indication Screening for colon cancer Staff Staff Role Bob Ortega MD Anesthesiologist PREM Peck CRNA, FENG Sheet Music Salesperson Jason Merino MD Performing Provider Medications See Anesthesia Record. Preprocedure A history and physical has been performed, and patient medication allergies have been reviewed. The patient's tolerance of previous anesthesia has been reviewed. The risks and benefits of the procedure and the sedation options and risks were discussed with the patient. All questions were answered and informed consent obtained. ASA 3 - Patient with severe systemic disease Details of the Procedure The patient underwent monitored anesthesia care, which was administered by an anesthesia professional. The patient's blood pressure, heart rate, level of consciousness, oxygen, respirations, ECG and ETCO2 were monitored throughout the procedure. A digital rectal exam was performed. The scope was introduced through the anus and advanced to the cecum. Retroflexion was performed in the rectum. The quality of bowel preparation was evaluated using the [place] Bowel Preparation Scale with scores of: right colon = 3, transverse colon = 3, left colon = 3. The total BBPS score was 9. Bowel prep was adequate. The patient experienced no blood loss. The procedure was not difficult. The patient tolerated the procedure well. There were no apparent adverse events. Patient provided education and educated on specific discharge instructions. Patient educated on medications given during the procedure and new medications for discharge. Patient verbalizes understanding of discharge education. Patient stable and awaiting transport for discharge. Events Procedure Events Event Event Time ENDO SCOPE IN TIME 03/21/2023 8:00 AM ENDO CECUM REACHED 03/21/2023 8:03 AM ENDO SCOPE OUT TIME 03/21/2023 8:09 AM Specimens ID Type Source Tests Collected by Time 1 : Transverse Colon Polyp via cold snare Tissue Large Intestine, Transverse Colon PATHOLOGY TISSUE REQUEST Jason White MD 03/21/2023 [id number] Anesthesia Event Time In Patient In - Proc. Room 07:53 AM Patient Out - Proc. Room 08:11 AM Jason Merino MD ENDOSCOPY PROCEDURE ORDERA BLES Final Result * HEPATITIS C ANTIBODY - SCREENING (01/18/2019 9:28 AM EDT) Hep C Ab Non-Reactiv e Non-Reacti ve 01/18/2019 3:19 PM EDT [employer] Blood VENOUS BLOOD / Unknown Venipuncture / Unknown 01/18/2019 9:28 AM EDT 01/18/2019 9:28 AM EDT Sridevi Cortez MD HEMATOLOGY ORDERABLES Final R esult [employer] [address] [place] [address] , [place] [address] [place] [phone] from Last 3 Months or Most Recently Relevant to Health Maintenance Insurance [place]ICARE [place] O [id number] MEDICARE [place] PART A AND B Member Subscriber Plan / Payer (Ef fective 2022-Present) Name:Snow Carson Member ID:[id number] Relation to Subscriber:Self Name:Snow Carson Subscriber ID:[id number] Payer ID:Not on file Group ID:Not on file Type:Not on file Address: [address] [id number] [facility] MEDICARE [place] PART A AND B Advance Directives For more information, please contact: [phone] Documents on File Type Date Recorded Patient Retail Wireless Sales Consultant Expl anation ADVANCE DIRECTIVE 09/08/2023 Care Teams Seal Mixing Operator Relationship Specialty Start Date End Date Zane Morris APRN [address] [place] [address] PCP - General Nurse Practitioner 03/28/23 Elizabeth Allen MD [address] [address] Internal Medicine-Endocrinology, Diabetes & Metabolism 06/06/14 Doug Beth MD [address] [place] [phone] Consulting Physician Anesthesiology 01/18/19
--- NOTE | 2024-10-21 10:22 | A.OFFVIS_ITS ---
[facility] Disclaimer: The information contained in this section may have been updated after the patient was seen, as this information can be updated by other users. Medical History High blood pressure Social History Smoking Status: Unknown if ever smoked alcohol intake: never substance use type: denies use current occupational status: other Travel in the last 8 weeks?: None PM Subjective & Objective Subjective Subjective:: Patient is a pleasant 68-year-old female who presents today for medication refill and follow-up. Today she rates her pain a 3 out of 10. She denies any new injury or trauma from her last appointment. She states overall she is still maintaining. She is currently prescribed Agua Dulce 10 mg 4 times a day and gabapentin 100 mg 3 times a day. She denies any side effects. Her Osbaldo has been reviewed and is appropriate. Review of Systems: General: No recent weight changes, no fever, no sleep disturbances Respiratory: No cough, no shortness of air, no recurring pulmonary infections Cardiovascular/peripheral vascular: No chest pain, no palpitations, no edema, no shortness of breath Gastrointestinal: No new onset incontinence, normal bowel movements reported Genitourinary: No new onset incontinence Musculoskeletal: Low back pain Psychiatric: [Normal mood/affect] Neurological: [Denies weakness in extremities], [denies balance issues] Pain at rest (0-10 scale): 3 Objective Objective:: Physical Exam: General: Alert and oriented x3, no acute distress, pleasant and cooperative Lungs: Respirations even and unlabored, symmetrical chest expansion Eyes: PERRL Musculoskeletal: Flexion and extension of lumbar [spine] somewhat guarded secondary to pain, [antalgic gait noted] Neurological: Speech clear, no gross sensory deficit Has patient had previous pain injection?: No Conservative treatment options previously tried: Prescription medications Length of treatment: Longer than 12 weeks Meds Home Medications and Allergies Home Medications ?Medication ?Instructions ?Recorded ?Confirmed ?Type hydrochlorothiazide 25 mg tablet 25 mg PO DAILY fluid 05/14/21 09/23/24 History methimazole 10 mg tablet 10 mg PO DAILY thyroid 05/1409/23/24 History moexipril 15 mg tablet 15 mg PO DAILY bp 05/14/21 0 09/23/24 History omeprazole 20 mg capsule,delayed 20 mg PO DAILY GERD 0 05/14/21 09/23/24 History release propranolol 80 1 each PO DAILY bp 05/14/21 09/23/24 History mg-hydrochlorothiazide 25 mg tablet gabapentin 100 mg capsule 100 mg PO TID Pain #90 caps 09/23/24 Rx hydrocodone 10 mg-acetaminophen 1 tab PO QID Pain #120 tabs 09/23/24 Rx 325 mg tablet New Prescriptions to Start Prescriptions: Allergies Allergy/AdvReac Type Severity Reaction Status Date / Time ciprofloxacin (From CIPRO) Allergy Unknown I-RASH Verified 01/29/24 08:42 Sulfa (Sulfonamide Allergy Unknown I-RASH Verified 01/29/24 08:42 Antibiotics) (SULFA (SULFONAMIDE ANTIBIOTICS)) Assessment and Plan *Assessment and plan (1) Lumbar radiculopathy: Status: Acute Category: Medical Code(s): M54.16 - Radiculopathy, lumbar region (2) Degenerative disc disease, lumbar: Status: Acute Category: Medical Code(s): M51.369 - Other intervertebral disc degeneration, lumbar region without mention of lumbar back pain or lower extremity pain Plan I will refill the patient's Agua Dulce and gabapentin and provide a 1 month supply of this medication. Patient will return to clinic in 1 month for reevaluation of symptoms and plan of care. Risks and benefits of the medication have been explained in detail to the patient. The patient does understand the risk of dependence on the medication when given over a prolonged period. Patient has been advised of risks of oversedation with the prescribed medication. Narcan has been offered to the paitent in the event of oversedation. Patient has been advised that a family member should also be educated regarding administration of Narcan. The patient has been advised to consult with his/her primary care provider and pharmacist regarding drug-drug interaction of medications currently prescribed. Patient has been prescribed a controlled substance after being counseled on the medication, medication safety, and possible side effects. Opioid contract was reviewed and signed by the patient, and that they have agreed to all of the terms set forth by our compliance program. A UDS is needed to verify patient's compliance with our office pain contract. This is ordered based off specific treatments related to chronic pain with the potential to abuse certain medications. Patient has been instructed to contact the clinic with any concerns before the next appointment. Dr. Beth has reviewed this note and agrees with this plan of care. This note was dictated using voice recognition software and make contain errors or omissions.
[2024-10-21 12:37] VITALS: BP 121/74; PULSE 82; RESP 18; O2SAT 97; BMI 36.0
== END 2024-10-21 23:59 | disposition home or self-care (01) ==
PROVIDERS: PCP Nurse Practitioner; Visit Provider Nurse Practitioner Family
DX: M51.16 Intervertebral disc disorders with radiculopathy, lumbar region (principal); Z79.891 Long term (current) use of opiate analgesic; Z79.899 Other long term (current) drug therapy
CPT/HCPCS: 99212; G0463

== ENCOUNTER 2024-11-22 08:48 | Outpatient (POV) | payer MEDICARE, BC, SELFPAY ==
--- OUTSIDE RECORDS SUMMARY | 2024-10-11 08:15 | XMS_ITS | Encounter Summary ---
Author Organization [place] [address] Care Team Providers Care Straw Hat Brim Raiser Operator Name Role Phone Elizabeth Allen MD Unavailable Doug Beth MD Unavailable Zane Morris APRN Primary Care Provider [phone] Reason for Visit * Reason Comments Cough Nasal Congestion Dysuria Encounter Details Date Type Department Care Team (Late st Contact Info) Description 10/11/2024 8:15 AM EDT Office Visit [facility] [address] [place] [address] Zane Morris APRN [address] [place], [place] [id number] Acute bacterial sinusitis (Primary Dx); UTI (urinary tract infection), uncomplicated; Low iron; Chronic obstructive pulmonary disease, unspecified COPD type (HCC); Wheezing; Urine frequency; Anemia, unspecified type Social History Tobacco Use Types Packs/Day Years [...] Sign Reading Time Taken Comments Blood Pressure 118/76 10/11/2024 8:05 AM EDT Pulse - - Temperature 36.8 C (98.2 F) 10/11/2024 8:05 AM EDT Respiratory Rate - - Oxygen Saturation - - Inhaled Oxygen Concentration - - Weight 96.2 kg (212 lb) 10/11/2024 8:05 AM EDT Height 162.6 cm (5' 4 ) 10/11/2024 8:05 AM EDT Body Mass Index 36.39 10/11/2024 8:05 AM EDT documented in this encounter Functional Status * Is the person deaf or does he/she have serious difficulty hearing? Answer Date of Assessment Author No 08/28/2024 9:20 AM EDT Leslie Ashley RMA * Is the person blind or does he/she have serious difficulty seeing even when wearing glasses? Answer Date of Assessment Author No 08/28/2024 9:20 AM Leslie Quiñones RMA * Does this person have serious [...] 08/28/2024 9:20 AM Leslie Quiñones RMA documented as of this encounter Mental Status * Because of a physical, mental or emotional condition, does this person have serious difficulty concentrating, remembering or making decisions? Answer Entry Date Author No 08/28/2024 9:20 AM Leslie Quiñones RMA documented in this encounter Ordered Prescriptions Prescription Sig Dispense Quantity Refills Last Filled Start Date End Date montelukast (SINGULAIR) 10 mg Oral TabletIndications:C hronic obstructive pulmonary disease, unspecified COPD type (HCC),Wheezing Take 1 Tablet by mouth nightly. 90 Tablet 3 10/11/2024 cefdinir (OMNICEF) 300 mg Oral CapsuleIndications: Acute bacterial sinusitis,UTI (urinary tract infection), uncomplicated Take 1 Capsule by mouth 2 times daily for 10 days. 20 Capsule 10/11/2024 documented in this encounter Progress Notes * Zane Morris APRN - 10/11/2024 8:15 AM EDTAssociated Problem(s): COPD (chronic obstructive pulmonary disease) (HCC) Orders: montelukast (SINGULAIR) 10 mg Oral Tablet; Take 1 Tablet by mouth nightly. * Zane Morris APRN - 10/11/2024 8:15 AM EDT Vitals: 10/11/24 0805 BP: 118/76 Temp: 98.2 ??F (36.8 ??C) TempSrc: Temporal Weight: 212 lb (96.2 kg) Height: 5' 4 (1.626 m) Body mass index is 36.39 kg/m??. SUBJECTIVE: Chief Complaint Patient presents with Cough Nasal Congestion Dysuria HPI: Cough This is a new problem. The current episode started in the past 7 days. The problem has been gradually worsening. The problem occurs every few minutes. The cough is Productive of sputum. Associated symptoms include ear congestion, a fever (100), headaches, nasal congestion, rhinorrhea, a sore throatand wheezing. Pertinent negatives include no ear pain. Her past medical history is significant for asthma, COPD and environmental allergies. Nasal Congestion This is a new problem. The current episode started in the past 7 days. The problem has been gradually worsening since onset. The maximum temperature recorded prior to her arrival was 100.4 - 100.9 F.The fever has been present for 1 to 2 days. Her pain is at a severity of 5/10. The pain is mild. Associated symptoms include congestion, coughing, headaches, a hoarse voice, sinus pressure, sneezing and a sore throat. Pertinent negatives include no ear pain. Past treatments include oral decongestants (zyrtec). The treatment provided no relief. Dysuria This is a recurrent problem. The current episode started more than 1 month ago. The problem occurs intermittently. The problem has been gradually improving. The quality of the pain is described as aching. The pain is at a severity of 4/10. The pain is mild. The maximum temperature recorded prior toher arrival was 100 - 100.9 F. The fever has been present for 1 - 2 days. She is Not sexually active. There is No history of pyelonephritis. Associated symptoms include flank pain, frequency and urgency. Associated symptoms comments: Vaginal itching, pelvic and bladder pressure. She has tried antibiotics and increased fluids for the symptoms. The treatment provided no relief. Her past medical history is significant for kidney stones and recurrent UTIs. Presents with fever, congestion, rhinorrhea, sinus pressure, dysuria, frequency for the last several days. Review of Systems Constitutional: Positive for fever (100). HENT: Positive for congestion, hoarse voice, rhinorrhea, sinus pressure, sneezing and sore throat. Negative for ear pain. Respiratory: Positive for cough and wheezing. Genitourinary: Positive for dysuria, flank pain, frequency and urgency. Allergic/Immunologic: Positive for environmental allergies. Neurological: Positive for headaches. OBJECTIVE: Physical Exam Constitutional: General: She is not in acute distress. Appearance: She is well-developed. She is not diaphoretic. HENT: Head: Normocephalic and atraumatic. Right Ear: External ear normal. Left Ear: External ear normal. Nose: Nose normal. Mouth/Throat: Pharynx: Posterior oropharyngeal erythema present. No oropharyngeal exudate. Tonsils: No tonsillar abscesses. Eyes: General: Right eye: No discharge. Left eye: No discharge. Neck: Vascular: No JVD. Cardiovascular: Rate and Rhythm: Normal rate and regular rhythm. Heart sounds: Normal heart sounds. No murmur heard. Pulmonary: Effort: Pulmonary effort is normal. No respiratory distress. Breath sounds: Normal breath sounds. No wheezing or rales. Musculoskeletal: General: Normal range of motion. Cervical back: Normal range of motion and neck supple. Skin: General: Skin is warm and dry. Findings: No rash. Neurological: Mental Status: She is alert and oriented to person, place, and time. Psychiatric: Behavior: Behavior normal. Thought Content: Thought content normal. Judgment: Judgment normal. Assessment & Plan Acute bacterial sinusitis Orders: cefdinir (OMNICEF) 300 mg Oral Capsule; Take 1 Capsule by mouth 2 times daily for 10 days. UTI (urinary tract infection), uncomplicated Orders: cefdinir (OMNICEF) 300 mg Oral Capsule; Take 1 Capsule by mouth 2 times daily for 10 days. Low iron Orders: IRON+TIBC; Future Chronic obstructive pulmonary disease, unspecified COPD type (HCC) Orders: montelukast (SINGULAIR) 10 mg Oral Tablet; Take 1 Tablet by mouth nightly. Wheezing Orders: montelukast (SINGULAIR) 10 mg Oral Tablet; Take 1 Tablet by mouth nightly. Urine frequency Orders: URINE CULTURE (NO STAIN); Future Anemia, unspecified type Orders: CBC; Future documented in this encounter Plan of Treatment Upcoming Encounters Date Type Department Care Team (Late st Contact Info) Description 01/03/2025 3:00 PM EDT Telemedicine SEP Diabetes [address] [address] Elizabeth Allen MD [address] [place] [phone] documented as of this encounter Goals Goal Patient Goal Type Associated Problems Recent Progress Patient-Stated? Author Blood Pressure < 140/90 Blood Pressure 118/76(2024 8:05 AM EDT) No Nathalie De La Torre, MARQUES Maintain a healthy diet, exercise regularly and maintain an ideal body weight General No Mckenna Danielle, MARQUES documented as of this encounter Procedures Procedure Name Priority Date/Time Associated Diagnosis Comments IRON+TIBC Routine 10/11/2024 8:39 AM EDT Low iron CBC Routine 10/11/2024 8:39 AM EDT Anemia, unspecified type URINE CULTURE (NO STAIN) Routine 10/11/2024 8:22 AM EDT Urine frequency SEP URINALYSIS POC Routine 10/11/2024 8: 20 AM EDT Urine frequency documented in this encounter Results * CBC (10/11/2024 8:39 AM EDT) WBC 5.6 3.7 - 10.3 x10(3)/mcL 10/11/2024 2:59 PM EDT [facility] RBC 4.28 3.90 - 5.20 x10(6)/mcL 10/11/2024 2:59 PM EDT [facility] Hgb 12.5 11.2 - 15.7 g/dL 10/11/2024 2:59 PM EDT [facility] Hct 36.9 34.0 - 45.0 % 10/11/2024 2:59 PM EDT [facility] MCV 86.2 80.0 - 100.0 fL 10/11/2024 2:59 PM EDT [facility] MCH 29.2 26.0 - 34.0 pg 10/11/2024 2:59 PM EDT [facility] MCHC 33.9 30.7 - 35.5 g/dL 10/11/2024 2:59 PM EDT [facility] RDW 13.2 <=14.9 % 10/11/2024 2:59 PM EDT [facility] Platelet 264 155 - 369 x10(3)/mcL 10/11/2024 2:59 PM EDT [facility] MPV 11.4 8.8 - 12.5 fL 10/11/2024 2:59 PM EDT [facility] Blood VENOUS BLOOD / Unknown Venipuncture / Unknown 10/11/2024 8:39 AM EDT 10/11/2024 8:39 AM EDT us Zane Morris APRN HEMATOLOGY ORDERABLES Final Result Performing Organization Address City/[facility]/ZIP Co de Phone Number [facility] [address] [facility] , [place] [address] * (ABNORMAL) IRON+TIBC (10/11/2024 8:39 AM EDT) Iron 32 30 - 160 mcg/dL 10/11/2024 4:47 PM EDT [facility] Transferrin 227 200 - 360 mg/dL 10/11/2024 4:47 PM EDT [facility] Transferrin Saturation 10(L) 20 - 50 % 10/11/2024 4:47 PM EDT [facility] TIBC 318 250 - 400 mcg/dL 10/11/2024 4:47 PM EDT [facility] Blood VENOUS BLOOD / Unknown Venipuncture / Unknown 10/11/2024 8:39 AM EDT 10/11/2024 8:39 AM EDT us Zane Morris APRN CHEMISTRY ORDERABLES Final R esult Performing Organization Address [facility] Co de Phone Number [facility] [address] [facility] , [place] [address] * URINE CULTURE (NO STAIN) (10/11/2024 8:22 AM EDT) Culture No growth at 30 hours. 10/13/2024 6:05 PM EDT [facility] [employer] Urine STRUCTURE OF URINARY TRACT PROPER / Unknown 10/11/2024 8:22 AM EDT 10/11/2024 8:22 AM EDT us Zane Morris APRN MICROBIOLOGY - GENERAL ORDER RAVI Final Result Performing Organization Address City/[facility]/ZIP Co de Phone Number [facility], [address] , [place] [address] * (ABNORMAL) SEP URINALYSIS POC (10/11/2024 8:20 AM EDT) UA Color POC Yellow Color 10/11/2024 8:22 AM EDT [facility] UA Appear POC Slightly Cloudy(A) Clear 10/11/2024 8:22 AM EDT [facility] UA Gluc POC Negative Negative mg/dL 10/11/2024 8:22 AM EDT [facility] UA Bili POC Negative Negative 10/11/2024 8:22 AM EDT [facility] UA Ketones POC Negative Negative mg/dL 10/11/2024 8:22 AM EDT [facility] UA SG POC 1.020 1.001 - 1.035 no units 10/11/2024 8:22 AM EDT [facility] UA Blood POC Small(A) Negative 10/11/2024 8:22 AM EDT [facility] UA pH POC 6.0 5.0 - 8.0 pH 10/11/2024 8:22 AM EDT [facility] UA Protein POC Negative Negative mg/dL 10/11/2024 8:22 AM EDT [facility] UA Urobilinogen POC 0.2 0.2, 1.0 10/11/2024 8:22 AM EDT [facility] UA Nitrite POC Negative Negative 10/11/2024 8:22 AM EDT [facility] UA Leuk Est POC Small(A) Negative 8:22 AM EDT [facility] Urine STRUCTURE OF URINARY TRACT PROPER / Unknown 10/11/2024 8:20 AM EDT 10/11/2024 8:22 AM EDT us Zane Morris APRN POINT OF CARE TEST ORDERABLE S Final Result [facility] [address] [place] [address] documented in this encounter Visit Diagnoses Diagnosis Acute bacterial sinusitis- Primary Acute sinusitis, unspecified UTI (urinary tract infection), uncomplicated Urinary tract infection, site not specified Low iron Iron deficiency anemia, unspecified Chronic obstructive pulmonary disease, unspecified COPD type ([facility]) Wheezing Urine frequency Urinary frequency Anemia, unspecified type documented in this encounter Discontinued Medications Medication Sig Discontinue Reason Start Date End Da te erythromycin (ROMYCIN) Opht Ointment DELETE-Therapy completed 10/17/2023 10/11/2024 brinzolamide (AZOPT) 1 % Opht Drops, Suspension Place 1 Drop into both eyes 2 times daily. DELETE-Therapy completed 11/21/2023 10/11/2024 docusate sodium (COLACE) 100 mg Oral Capsule Take 1 Capsule by mouth 2 times daily. DELETE-Therapy completed 09/08/2023 10/11/2024 senna (SENOKOT) 8.6 mg Oral Tablet Take 1 Tablet by mouth daily as needed for Constipation. DELETE-Therapy completed 09/08/2023 10/11/2024 ibuprofen (ADVIL;MOTRIN) 600 mg Oral Tablet Take 1 Tablet by mouth every 6 hours as needed for Pain. DELETE-Therapy completed 09/08/2023 10/11/2024 ondansetron (ZOFRAN-ODT) 4 mg Oral Tablet, Rapid Dissolve Take 1 Tablet by mouth every 6 hours as needed for Nausea. DELETE-Therapy completed 09/08/2023 10/11/2024 montelukast (SINGULAIR) 10 mg Oral TabletIndications:Chron ic obstructive pulmonary disease, unspecified COPD type (HCC),Wheezing TAKE 1 TABLET BY MOUTH NIGHTLY. Reorder 08/05/2024 10/11/2024 documented as of this encounter Additional Health Concerns Assessment Noted Time A fall risk assessment has been complete d for the patient 04/13/2024 4:08 PM EST documented as of this encounter Care Teams Straw Hat Brim Raiser Operator Relationship Specialty Start Date End Date Zane Morris APRN [address] [place] [address] PCP - General Nurse Practitioner 03/28/23 Elizabeth Allen MD [address] [phone] Internal Medicine-Endocrinology, Diabetes & Metabolism 06/06/14 Doug Beth MD [address] [place] [phone] Consulting Physician Anesthesiology 01/18/19 documented as of this encounter
--- OUTSIDE RECORDS SUMMARY | 2024-11-22 08:54 | XMS_ITS | Clinical Summary ---
Author Organization [employer] [facility] are Address [address] [phone] Phone Care Team Providers Care Product Marketing Intern Name Role Phone Hon TONEY, Rosario Valdes Unavailable Conditions or Problems No information available. Medications Medication Instructions Start Date Stop Date Generic Name [facility] Provider VENTOLIN HFA 108 (90 Base) MCG/ACT AERS Inhale 2 puffs into the lungs every 6hrs as needed for wheezing ALBUTEROL SULFATE [id number] Rosario Jarvis RN PROPRANOLOL HCL 20 MG TABS Take 1 tablet by mouth 2 times daily PROPRANOLOL HCL [id number] Rosario Jarvis RN POLYETHYLENE GLYCOL 3350 17 GM/SCOOP POWD Take 17grams by mouth daily as needed POLYETHYLENE GLYCOL 3350 [id number] Rosario Jarvis RN OMEPRAZOLE 20 MG CPDR Take 1 capsule by mouth daily OMEPRAZOLE [id number] Rosario Jarvis RN MOEXIPRIL-HYDROC HLOROTHIAZIDE 15-25 MG ORAL TABLET One tablet by mouth once daily MOEXIPRIL-HYDRO CHLOROTHIAZIDE 14982941644 Rosario Jarvis RN METHIMAZOLE 10 MG TABS Take 10mg 6 days a week and 5mg 1 day a week METHIMAZOLE 96434994865 Rosario Jarvis RN HYDROCODONE-ACET AMINOPHEN 10-325 MG TABS One tablet by mouth every 8 hrs as needed for pain HYDROCODONE-CARLIE TAMINOPHEN 92690483213 Rosario Jarvis RN EQL ALLER-EASE 180 MG ORAL TABLET Take one tab by mouth daily FEXOFENADINE HCL 71413315970 Rosario Jarvis RN ALBUTEROL SULFATE HFA 108 (90 Base) MCG/ACT AERS Inhale 2 puffs into the lungs every 4 hours as needed for wheezing ALBUTEROL SULFATE [id number] Jarvis RN Medications Administered No information available. [...]
--- OUTSIDE RECORDS SUMMARY | 2024-11-22 08:55 | XMS_ITS | Encounter Summary ---
Author Organization [place] [address] Care Team Providers Care Agent Spa Desk Name Role Phone Elizabeth Allen MD Unavailable Doug Beth MD Unavailable Zane Morris APRN Primary Care Provider [phone] Encounter Details Date Type Department Care Team (Late st Contact Info) Description 08/29/2024 Results Follow-Up [facility] [address] [place] [address] Annette Chan MD [address] [place] [address] XR ABDOMEN AP, URINE CULTURE (NO STAIN) [...] 01/03/2025 3:00 PM EDT Telemedicine [facility]P Diabetes [address] [address] Elizabeth Allen MD [address] [address] documented as of this encounter [...] documented as of this encounter Care Teams Agent Spa Desk Relationship Specialty Start Date End Date Zane Morris APRN [address] [place] [id number] PCP - General Nurse Practitioner 03/28/23 Elizabeth Allen MD [address] [address] Internal Medicine-Endocrinology, Diabetes & Metabolism 06/06/14 Doug Beth MD [address] [place] [address] Consulting Physician Anesthesiology 01/18/19 documented as of this encounter
--- OUTSIDE RECORDS SUMMARY | 2024-11-22 08:55 | XMS_ITS | Clinical Summary ---
Author Organization [facility] Address [address] [place] [address] Phone Care Team Providers Care Bike Designer Name Role Phone Elizabeth Allen MD Unavailable Doug Beth MD Unavailable Zane Morris APRN Primary Care Provider [phone] Allergies Active Allergy Reactions Criticality Noted Date Comments Amoxicillin Rash Low 08/25/2010 Ciprofloxacin Rash Low 04/06/2013 Loratadine-Pseudoephedrine Anxiety Low Nitrofurantoin Monohyd/M-Cryst Rash High Other Peacham-3s Hives,Itching,Rash Medium 03/23/2012 Sulfa (Sulfonamide Antibiotics) Rash Low Medications gabapentin (NEURONTIN) 100 mg Oral Capsule Take 100 mg by mouth 3 times daily. 7 Active cetirizine (ZYRTEC) 10 mg Oral Tablet Take 10 mg by mouth daily. Active fluticasone propionate (FLONASE) 50 mcg/actuation Nasl Fouke, SuspensionIndica tions:Nasal congestion 1 Fouke by Nasal route daily. 1 Bottle 1 [...] ipratropium (ATROVENT) 21 mcg (0.03 %) Nasl Fouke, Non-Aerosol 2 SPRAYS BY NASAL ROUTE 3 TIMES DAILY. 30 mL 4 Active Additional Information Patient not taking.Reason: Pt electing to not take the medication, Informant: Self/Patient, Reported on 10/11/2024 HYDROcodone-acet aminophen (NORCO) 10-325 mg Oral Tablet Take 1 Tablet by mouth every 6 hours as needed for Acute Pain (R52). 4 Active albuterol (PROVENTIL HFA;VENTOLIN HFA) 90 mcg/actuation Inhl HFA Aerosol InhalerIndicatio ns:Acute bronchitis, unspecified organism,COVID-1 9 virus detected INHALE 2 PUFFS INTO THE LUNGS EVERY 4 HOURS NEEDED FOR WHEEZING. 8.5 g 2 4 Active lisinopriL (PRINIVIL;ZESTRI L) 10 mg Oral TabletIndication s:Essential hypertension Take 1 Tablet by mouth daily. 90 Tablet 3 4 Active hydroCHLOROthiaz mallory 25 mg Oral TabletIndication s:Essential hypertension Take 1 Tablet by mouth daily. 90 Tablet 3 4 Active propranoloL (INDERAL) 40 mg Oral TabletIndication s:PVC (premature ventricular contraction) Take 1 Tablet by [...] 5 Active montelukast (SINGULAIR) 10 mg Oral TabletIndication s:Chronic obstructive pulmonary disease, unspecified COPD type (HCC),Wheezing Take 1 Tablet by mouth nightly. 90 Tablet 3 5 Active azithromycin (ZITHROMAX) 250 mg Oral Tablet Take 2 tablets (500 mg) on Day 1, followed by 1 tablet (250 mg) once daily on Days 2 through 5. 6 Tablet 5 Active Active Problems Patient Care Coordination No te Formatting of this note migh t be different from the original. UDS 03/29/19 see scanned result [facility] 10/30/16#[id number] pain mgt Dr. Milad Eddy of [facility],03/07/20([id number]) Problem Noted Date Diagnosed Date Thickened endometrium [...] Resolved Date Abnormal stress ECG 06/10/2018 09/05/19 Chest pain 09/07/2013 09/04/2020 Fluid overload 09/04/2020 Pain medication agreement Encounters Date Type Department Care Team Description 10/14/2024 Telephone [facility]P [facility] [address] [place] [address] Zane Morris APRN Symptoms (Only Use If Pt Pushes Back On Scheduling A Visit) (came in on Friday sinus infection / uti still not feeling better ) 10/12/2024 Results Follow-Up SEP [facility] [address] [place] [address] Zane Morris APRN IRON+TIBC, CBC 10/11/2024 8:15 AM EDT Office Visit [address] [address] Zane Morris APRN Acute bacterial sinusitis (Primary Dx); UTI (urinary tract infection), uncomplicated; Low iron; Chronic obstructive pulmonary disease, unspecified COPD type ([facility]); Wheezing; Urine frequency; Anemia, unspecified type 08/29/2024 Results Follow-Up [address] [address] Annette Chan MD XR ABDOMEN AP, URINE CULTURE (NO STAIN) 08/28/2024 2:45 PM EDT - 08/28/2024 11:59 PM EDT Hospital Encounter GRT XRAY [address] [place] [address] Flank pain Discharge Disposition: Home or Self Care 08/28/2024 9:00 AM EDT Office Visit [address] [address] Annette Chan MD Dysuria (Primary Dx); Chronic obstructive pulmonary disease, unspecified COPD type ([facility]); Severe obesity with body mass index (BMI) of 35.0 to 39.9 with comorbidity ([facility]); UTI (urinary tract infection), uncomplicated; Obesity, Class II, BMI 35-39.9; Flank pain; Statin myopathy 08/28/[address] [address] Zane Morris APRN Orders (xray) 08/27/[address] [address] Zane Morris APRN Medication Refill from [...] MD; Location: [facility] MAIN OR; Service: Gynecology SC COLPOPEXY VAGINAL INTRAPERITONEAL APPROACH 09/08/2023 N/A .; Surgeon: Penny Sorenson MD; Location: [facility] MAIN OR; Service: Gynecology EYE SURGERY 11/10/2023 - 12/10/2023 [facility] Medical History Medical History Date Comments Seasonal allergies Restless legs syndrome (RLS) No meds Osteoarthritis No meds Esophageal reflux Zantac Hyperthyroidism 05/01/2011 Methimazole/prop ranolol HTN (hypertension) Uniretic Asthma COPD (chronic obstructive pu lmonary disease) (HCC) 04/22/2023 Urinary tract infection Prolapse Bladder Sleep apnea testing set up f or sleep apnea 1 week prior to surgery Cardiac dysrhythmia had irregula r heart beats years ago. Took medicine for it. But no longer needs medication per cardiology Neuromuscular disorder (HCC) has burning pain in my back Lumbar [...] 6 6 Date Outcome GA Total Labor Labor/3rd Weight Sex Type Anes PTL Estefanía A1 [...] 01/03/2025 3:00 PM EDT Telemedicine [facility] [address] [address] Elizabeth Allen MD [address] [phone] Health Maintenance Due Date Last Done Comments Cologuard 2002 FIT 2002 Sigmoidoscopy 2002 Virtual Colonography 2002 Zoster (1 of 2) 12/03/2007 Pneumococcal Vaccine 50+ (2 of 2 - PCV) 03/23/2013 03/23/2012 DTaP/TDaP/Td (2 - Td or Tdap) 06/16/2023 06/16/2013 COVID-19 Vaccine (1 - season) 2024 Influenza Vaccine (#1) 2025 , 03/28/2023, 01/24/2022, Additional history exists Wellness Exam Medicare 04/14/2025 04/13/2024 Breast Cancer Screening 05/22/2025 05/22/19, 09/10/2021, 09/27/2019, Additional history exists Colon Cancer Screening 03/21/2028 Colonoscopy 03/21/2028 03/21/2023 Hepatitis C Screening Completed 01/18/2019 Bone Density Screening Completed 05/22/2023 Hepatitis B Vaccine Aged Out No longe [...] body weight General No Mckenna Danielle RMA Procedures Procedure Name Priority Date/Time Associated [...] mcg/dL 10/11/2024 4:47 PM EDT [facility] [employer] Transferrin 227 200 - 360 mg/dL 10/11/2024 4:47 PM EDT [facility] [employer] [facility] Saturation 10(L) 20 - 50 % 10/11/2024 4:47 PM EDT [facility] TIBC 318 250 - 400 mcg/dL 10/11/2024 4:47 PM EDT [facility] Blood VENOUS BLOOD / Unknown Venipuncture / Unknown 10/11/2024 8:39 AM EDT 10/11/2024 8:39 AM EDT us Zane Morris PATTERN GATER CHEMISTRY ORDERABLES Final R esult [facility] [employer] [address], [place] [address] * CBC (10/11/2024 8:39 AM EDT) WBC [...] 10/11/2024 8:39 AM EDT us Zane Morris PATTERN GATER HEMATOLOGY ORDERABLES Final Result [facility] [address], [place] [address] * URINE CULTURE (NO STAIN) (10/11/2024 8:22 AM EDT) Only the most recent of2 resultswithin the time period is included. Culture No growth at 30 hours. 10/13/2024 6:05 PM EDT [facility] Urine STRUCTURE OF URINARY TRACT PROPER / Unknown 10/11/2024 8:22 AM EDT 10/11/2024 8:22 AM EDT us Zane Morris PATTERN GATER MICROBIOLOGY - GENERAL ORDER RAVI Final Result [facility] [address] [facility] , [place] [address] * (ABNORMAL) SEP URINALYSIS POC (10/11/2024 8:20 [...] - 8.0 pH 10/11/2024 8:22 AM EDT [facility] Protein POC Negative Negative mg/dL 10/11/2024 8:22 AM EDT [facility] [place] Urobilinogen POC 0.2 0.2, 1.0 10/11/2024 8:22 AM EDT [facility] [place] [facility] Nitrite POC Negative Negative 10/11/2024 8:22 AM EDT [facility] [place] [facility] Leuk Est POC Small(A) Negative 8:22 AM EDT [facility] [place] Urine STRUCTURE OF URINARY TRACT PROPER / Unknown 10/11/2024 8:20 AM EDT 10/11/2024 8:22 AM EDT us Zane Morris PATTERN GATER POINT OF CARE TEST [place] [address] * XR ABDOMEN AP (08/28/2024 3:24 PM [...] 08/28/2024 3:24 PM CLINICAL HISTORY: R10.9-Unspecified abdominal zpev-IEE-61-CM COMPARISON: No comparison KUB studies. PROCEDURE COMMENTS: AP view(s) of the abdomen per protocol. FINDINGS: Prior cholecystectomy. Nonobstructive bowel gas pattern. No dominant renal calcifications. Diffuse levoconvex lumbar curvature. Multiple lower right paraspinal phleboliths. Multiple scattered pelvic phleboliths. Procedure Note Gavin Cortez DO - 08/28/2024 CR, ABDOMEN AP, 08/28/2024 3:24 PM CLINICAL HISTORY: R10.9-Unspecified abdominal aetq-TNL-40-CM COMPARISON: No comparison KUB studies. PROCEDURE COMMENTS: [...] bone density assessment. Study was performed on [employer] 5. Bone Density: Region BMD T-score Z-score [...] on 05/22/2023 2:26:00 PM. us Delores Pugh PATTERN GATER IMG DEXA ORDERABLES Fi nal Result * MM MAMMO DIGITAL FREDY SCREEN BILAT (05/22/2023 7:22 AM EST) Anatomical Region Laterality Modality Breast Bilateral Mammography 05/22/2023 8:03 AM EST Impressions 05/22/2023 8:03 AM EST Negative ([id number]-Ivninnhi-6) ~ RECOMMENDATION: Routine screening mammogram in 1 [...] the next mammogram, in accordance with the [place] [employer] and the Society of Breast Imaging recommendations. Narrative 05/22/2023 8:03 AM EST Procedure:MM MAMMO DIGITAL FREDY SCREEN BILAT ~ Reason for exam: screening, asymptomatic. Z12.31-Encounter for screening mammogram for malignant neoplasm of vakmxm-IGX-77-CM ~ MM MAMMO DIGITAL FREDY SCREEN BILAT [...] for screening mammogram for malignant neoplasm of itpsyt-QOU-57-CM ~ MM MAMMO DIGITAL FREDY SCREEN BILAT Bilateral CC and MLO view(s) were taken. There are scattered fibroglandular densities. Prior study comparison: Compared with prior studies the most recentbeing 09/10/21, 09/27/19 No mammographic evidence of malignancy. ~ IMPRESSION: Negative (AHD-[id number]-9) ~ RECOMMENDATION: Routine screening mammogram in 1 [...] the next mammogram, in accordance with the [place] and the Society of Breast Imaging recommendations. Delores Pugh PATTERN GATER IMG MAMMOGRAPHY ORDERA BLES Final Result * [...] Staff Staff Role Bob Ortega MD Anesthesiologist Zara Ruvalcaba, PREM Mcconnell, RN Appraiser Land Jason Merino MD Performing Provider Medications See [...] of bowel preparation was evaluated using the [facility] Bowel Preparation Scale with scores of: right [...] Patient Out - Proc. Room 08:11 AM us Jason Merino MD ENDOSCOPY PROCEDURE ORDERA BLES Final Result * HEPATITIS C ANTIBODY - SCREENING (01/18/2019 9:28 AM EDT) Hep C Ab Non-Reactiv e Non-Reacti ve 01/18/2019 3:19 PM EDT [facility] Blood VENOUS BLOOD / Unknown Venipuncture / Unknown 01/18/2019 9:28 AM EDT 01/18/2019 9:28 AM EDT Sridevi Cortez MD HEMATOLOGY ORDERABLES Final R esult [facility] [address] [facility] , [place] [address] from Last 3 Months or Most Recently Relevant to Health Maintenance Insurance [facility] MEDICARE [place] PART A AND B [place] PART A [place] B [facility] MEDICARE [place] PART A [place] [address] Advance Directives For more information, please contact: [phone] Documents on File Type Date Recorded Patient Development Architect Expl anation ADVANCE DIRECTIVE 09/08/2023 Care Teams Bike Designer Relationship Specialty Start Date End Date Zane Morris APRN [address] [place] [address] PCP - General Nurse Practitioner 03/28/23 Elizabeth Allen MD [address] [address] Internal Medicine-Endocrinology, Diabetes & Metabolism 06/06/14 Doug Beth MD [address] [place] [phone] Consulting Physician Anesthesiology 01/18/19
--- OUTSIDE RECORDS SUMMARY | 2024-11-22 08:55 | XMS_ITS | Encounter Summary ---
Author Organization [place] [address] Care Team Providers Care Wood Patternmaker Apprentice Name Role Phone Elizabeth Allen MD Unavailable Doug Beth MD Unavailable Zane Morris APRN Primary Care Provider [phone] Encounter Details Date Type Department Care Team (Late st Contact Info) Description 10/12/2024 Results Follow-Up SEP [facility] [address] [place] [address] Zane Morris APRN [address] [place] [address] IRON+TIBC, CBC Social History Tobacco Use Types [...] 01/03/2025 3:00 PM EDT Telemedicine [facility] [address] [address] Elizabeth Allen MD [address] [place] [address] documented as of this encounter Goals [...] documented as of this encounter Care Teams Wood Patternmaker Apprentice Relationship Specialty Start Date End Date Zane Morris APRN [address] [place] [address] PCP - General Nurse Practitioner 03/28/23 Elizabeth Allen MD [address] [address] Internal Medicine-Endocrinology, Diabetes & Metabolism 06/06/14 Doug Beth MD [address] [address] Consulting Physician Anesthesiology 01/18/19 documented as of this encounter
--- OUTSIDE RECORDS SUMMARY | 2024-11-22 08:55 | XMS_ITS | Encounter Summary ---
Author Organization [place] [address] Care Team Providers Care Improvement Analyst Name Role Phone Elizabeth Allen MD Unavailable Doug Beth MD Unavailable Zane Morris APRN Primary Care Provider [phone] Reason for Visit * Reason Onset Date Comments Symptoms (Only Use If Pt Pus hes Back On Scheduling A Visit) 10/14/2024 came in on Friday sinus infe ction / uti still not feeling better Encounter Details Date Type Department Care Team (Late st Contact Info) Description 10/14/2024 Telephone [facility] [address] [place] [address] aZne Morris APRN [address] [place] [address] Symptoms (Only Use If Pt [...] No pain Desired Outcome: Advice Pharmacy & Location:[place] [address] [address] [facility] [phone] [[id number]] Return Method of Communication: Phone Call Was [...] 01/03/2025 3:00 PM EDT Telemedicine SEP Diabetes [address] [address] Elizabeth Allen MD [facility] [address] [address] documented as of this encounter [...] documented as of this encounter Care Teams Improvement Analyst Relationship Specialty Start Date End Date Zane Morris APRN [address] [id number] PCP - General Nurse Practitioner 03/28/23 Elizabeth Allen MD [address] [phone] Internal Medicine-Endocrinology, Diabetes & Metabolism 06/06/14 Doug Beth MD [address] [address] Consulting Physician Anesthesiology 01/18/19 documented as of this encounter
--- NOTE | 2024-11-22 09:01 | A.OFFVIS_ITS ---
[facility] Disclaimer: The information contained in this section may have been updated after the patient was seen, as this information can be updated by other users. Medical History High blood pressure Social History Smoking Status: Unknown if ever smoked alcohol intake: never substance use type: denies use current occupational status: other Travel in the last 8 weeks?: None Have you lived/traveled outside [place] in past 30 days?: No Contact w/someone who lives/traveled outside [place] past 30 days?: No Exposure to someone with infectious disease in past 14 days?: No Do you have a fever (greater than 100.4 F or 38 C)?: No Have you tested positive for COVID-19?: No Exposed to someone with COVID-19 in past 14 days?: No Do you have a sore throat?: No Do you have a cough?: No Do you have any weakness?: No Do you have any diarrhea?: No Are you experiencing any unusual bleeding?: No Do you have any muscle aches/pain?: No Do you have any abdominal pain?: No Are you experiencing loss of taste or smell?: No PM Subjective & Objective Subjective Subjective:: Patient is a pleasant 68-year-old female who presents today for medication refill. Today she rates her pain a 3 out of 10. She denies any new trauma or injury. Patient states that she is still continuing to do well on her current medication regimen from our office. She is managed with [place] 10 mg 4 times a day and gabapentin 100 mg 3 times a day. She denies any side effects or changes to her pharmacy. Her [place] has been reviewed and is appropriate. Review of Systems: General: No recent weight changes, no fever, no sleep disturbances Respiratory: No cough, no shortness of air, no recurring pulmonary infections Cardiovascular/peripheral vascular: No chest pain, no palpitations, no edema, no shortness of breath Gastrointestinal: No new onset incontinence, normal bowel movements reported Genitourinary: No new onset incontinence Musculoskeletal: Low back pain Psychiatric: [Normal mood/affect] Neurological: [Denies weakness in extremities], [denies balance issues] Pain at rest (0-10 scale): 3 Objective Objective:: Physical Exam: General: Alert and oriented x3, no acute distress, pleasant and cooperative Lungs: Respirations even and unlabored, symmetrical chest expansion Eyes: PERRL Musculoskeletal: Flexion and extension of lumbar [spine] somewhat guarded secondary to pain, [antalgic gait noted] Neurological: Speech clear, no gross sensory deficit Has patient had previous pain injection?: No Conservative treatment options previously tried: Prescription medications Length of treatment: Longer than 12 weeks Meds Home Medications and Allergies Home Medications ?Medication ?Instructions ?Recorded ?Confirmed ?Type hydrochlorothiazide 25 mg tablet 25 mg PO DAILY fluid 05/14/21 10/21/24 History methimazole 10 mg tablet 10 mg PO DAILY thyroid 05/1410/21/24 History moexipril 15 mg tablet 15 mg PO DAILY bp 05/14/21 0 10/21/24 History omeprazole 20 mg capsule,delayed 20 mg PO DAILY GERD 0 05/14/21 10/21/24 History release propranolol 80 1 each PO DAILY bp 05/14/21 10/21/24 History mg-hydrochlorothiazide 25 mg tablet gabapentin 100 mg capsule 100 mg PO TID Pain #90 caps 09/23/24 10/21/24 Rx hydrocodone 10 mg-acetaminophen 1 tab PO QID Pain #120 tabs 10/21/24 Rx 325 mg tablet New Prescriptions to Start Prescriptions: Allergies Allergy/AdvReac Type Severity Reaction Status Date / Time ciprofloxacin (From CIPRO) Allergy Unknown I-RASH Verified 01/29/24 08:42 Sulfa (Sulfonamide Allergy Unknown I-RASH Verified 01/29/24 08:42 Antibiotics) (SULFA (SULFONAMIDE ANTIBIOTICS)) Assessment and Plan *Assessment and plan (1) Lumbar radiculopathy: Status: Acute Category: Medical Code(s): M54.16 - Radiculopathy, lumbar region (2) Degenerative disc disease, lumbar: Status: Acute Category: Medical Code(s): M51.369 - Other intervertebral disc degeneration, lumbar region without mention of lumbar back pain or lower extremity pain Plan I will refill her [place] and gabapentin and provide a 1 month supply of these medications. Patient will return to clinic in 1 month. Risks and benefits of the medication have been explained in detail to the patient. The patient does understand the risk of dependence on the medication when given over a prolonged period. Patient has been advised of risks of oversedation with the prescribed medication. Narcan has been offered to the paitent in the event of oversedation. Patient has been advised that a family member should also be educated regarding administration of Narcan. The patient has been advised to consult with his/her primary care provider and pharmacist regarding drug-drug interaction of medications currently prescribed. Patient has been prescribed a controlled substance after being counseled on the medication, medication safety, and possible side effects. Opioid contract was reviewed and signed by the patient, and that they have agreed to all of the terms set forth by our compliance program. A UDS is needed to verify patient's compliance with our office pain contract. This is ordered based off specific treatments related to chronic pain with the potential to abuse certain medications. Patient has been instructed to contact the clinic with any concerns before the next appointment. Dr. Beth has reviewed this note and agrees with this plan of care. This note was dictated using voice recognition software and make contain errors or omissions.
[2024-11-22 10:55] VITALS: BP 112/62; PULSE 76; RESP 18; O2SAT 95; BMI 35.2
== END 2024-11-22 23:59 | disposition home or self-care (01) ==
PROVIDERS: PCP Nurse Practitioner; Visit Provider Nurse Practitioner Family
DX: M54.16 Radiculopathy, lumbar region (principal); M51.360 Other intervertebral disc degeneration, lumbar region with discogenic back pain only
CPT/HCPCS: 99212; G0463

== ENCOUNTER 2024-12-23 08:32 | Outpatient (POV) | payer MEDICARE, BC, SELFPAY ==
[2024-12-23 08:53] VITALS: BP 121/69; PULSE 75; RESP 14; O2SAT 97; BMI 35.5
--- NOTE | 2024-12-23 08:59 | EXP.PAIN.SOA ---
[facility] Disclaimer: The information contained in this section may have been updated after the patient was seen, as this information can be updated by other users. Medical History High blood pressure Social History Smoking Status: Unknown if ever smoked alcohol intake: never substance use type: denies use current occupational status: other Travel in the last 8 weeks?: None PM Subjective & Objective Subjective Subjective:: Patient is a pleasant 69-year-old female who presents today for medication refill and follow-up. Today she rates her pain a 3 out of 10. She denies any new trauma or injury. Patient is doing well overall. She is prescribed [place] 10 mg 4 times a day and gabapentin 100 mg 3 times a day. She denies any side effects. Her [place]baldo has been reviewed and is appropriate. Review of Systems: General: No recent weight changes, no fever, no sleep disturbances Respiratory: No cough, no shortness of air, no recurring pulmonary infections Cardiovascular/peripheral vascular: No chest pain, no palpitations, no edema, no shortness of breath Gastrointestinal: No new onset incontinence, normal bowel movements reported Genitourinary: No new onset incontinence Musculoskeletal: Low back pain Psychiatric: [Normal mood/affect] Neurological: [Denies weakness in extremities], [denies balance issues] Pain at rest (0-10 scale): 3 Objective Objective:: Physical Exam: General: Alert and oriented x3, no acute distress, pleasant and cooperative Lungs: Respirations even and unlabored, symmetrical chest expansion Eyes: PERRL Musculoskeletal: Flexion and extension of lumbar [spine] somewhat guarded secondary to pain, [antalgic gait noted] Neurological: Speech clear, no gross sensory deficit Has patient had previous pain injection?: No Conservative treatment options previously tried: Home exercise plan Length of treatment: Longer than 12 weeks Meds Home Medications and Allergies Home Medications ?Medication ?Instructions ?Recorded ?Confirmed ?Type hydrochlorothiazide 25 mg tablet 25 mg PO DAILY fluid 05/14/21 12/23/24 History methimazole 10 mg tablet 10 mg PO DAILY thyroid 05/14/21 12/23/24 History moexipril 15 mg tablet 15 mg PO DAILY bp 01/03/22 08/14/25 History omeprazole 20 mg capsule,delayed 20 mg PO DAILY GERD 05/14/21 12/23/24 History release propranolol 80 1 each PO DAILY bp 05/14/21 12/23/24 History mg-hydrochlorothiazide 25 mg tablet gabapentin 100 mg capsule 100 mg PO TID Pain #90 caps 11/22/24 12/23/24 Rx hydrocodone 10 mg-acetaminophen 1 tab PO QID Pain #120 tabs 11/22/24 12/23/24 Rx 325 mg tablet New Prescriptions to Start Prescriptions: Allergies Allergy/AdvReac Type Severity Reaction Status Date / Time ciprofloxacin (From CIPRO) Allergy Unknown I-RASH Verified 01/29/24 08:42 Sulfa (Sulfonamide Allergy Unknown I-RASH Verified 01/29/24 08:42 Antibiotics) (SULFA (SULFONAMIDE ANTIBIOTICS)) Assessment and Plan *Assessment and plan (1) Lumbar radiculopathy: Status: Acute Category: Medical Code(s): M54.16 - Radiculopathy, lumbar region (2) Degenerative disc disease, lumbar: Status: Acute Category: Medical Code(s): M51.369 - Other intervertebral disc degeneration, lumbar region without mention of lumbar back pain or lower extremity pain Plan We will refill her [place] and gabapentin and provide a 1 month supply of these medications. Patient will return to clinic in 1 month. Risks and benefits of the medication have been explained in detail to the patient. The patient does understand the risk of dependence on the medication when given over a prolonged period. Patient has been advised of risks of oversedation with the prescribed medication. Narcan has been offered to the paitent in the event of oversedation. Patient has been advised that a family member should also be educated regarding administration of Narcan. The patient has been advised to consult with his/her primary care provider and pharmacist regarding drug-drug interaction of medications currently prescribed. Patient has been prescribed a controlled substance after being counseled on the medication, medication safety, and possible side effects. Opioid contract was reviewed and signed by the patient, and that they have agreed to all of the terms set forth by our compliance program. A UDS is needed to verify patient's compliance with our office pain contract. This is ordered based off specific treatments related to chronic pain with the potential to abuse certain medications. Patient has been instructed to contact the clinic with any concerns before the next appointment. Dr. Beth has reviewed this note and agrees with this plan of care. This note was dictated using voice recognition software and make contain errors or omissions.
== END 2024-12-23 23:59 | disposition home or self-care (01) ==
PROVIDERS: PCP Nurse Practitioner; Visit Provider Nurse Practitioner Family
DX: M51.26 Other intervertebral disc displacement, lumbar region (principal); Z79.891 Long term (current) use of opiate analgesic; Z79.899 Other long term (current) drug therapy
CPT/HCPCS: 99212; G0463